=== PATIENT | female | born 1960 | race Two or more races ===

== ENCOUNTER 2022-11-09 17:13 | Inpatient (IN) | payer MEDICAID, OTHER, SELFPAY ==
--- NOTE | 2022-11-09 | ECG_ITS ---
Test Reason : CHEST PAIN Blood Pressure : / mmHG Vent. Rate : 058 BPM Atrial Rate : 058 BPM P-R Int : 192 ms QRS Dur : 104 ms QT Int : 444 ms P-R-T Axes : 046 -29 115 degrees QTc Int : 435 ms Sinus bradycardia Left ventricular hypertrophy with repolarization abnormality ( R in aVL , [place] product ) Abnormal ECG No previous ECGs available Referred By: Generic ED Physician Electronically Signed By:Charles Khoury
--- NOTE | ~2022-11-09 | XR_ITS ---
EXAMINATION: XR CHEST CLINICAL INFORMATION: Chest pain COMPARISON: None available. TECHNIQUE: Frontal view of the chest was obtained. FINDINGS: The cardiomediastinal silhouette is prominent, likely related to positioning and technique. Slight elevation right hemidiaphragm. There is no focal consolidation, edema, or effusion. No pneumothorax. No acute osseous abnormality. XR/XR chest 1V IMPRESSION: No evidence of acute cardiopulmonary process.
--- NOTE | ~2022-11-09 | CT_ITS ---
EXAMINATION: CT ABDOMEN AND PELVIS WITHOUT CONTRAST CLINICAL INFORMATION: Question spinal stenosis and pyelonephritis. COMPARISON: None available. TECHNIQUE: Multidetector volumetric imaging was performed from the superior aspect of the liver through the pubic symphysis. Sagittal and coronal reformatted images were obtained on the technologist's workstation. This CT examination was performed using dose optimization techniques as appropriate, variously including the following: *Automated exposure control *Adjustment of mA and/or kV according to patient size (this includes techniques or standardized protocols for targeted exams where dose is matched to indication/reason for exam; i.e. extremities or head) *Use of iterative reconstruction technique DLP: 820 mGy-cm FINDINGS: LUNG BASES: The visualized lung bases are unremarkable. LIVER, GALLBLADDER, AND BILIARY TREE: The liver is normal in size, shape, and attenuation. No focal hepatic lesion or biliary ductal dilatation is present. Cholecystectomy. PANCREAS: Unremarkable. SPLEEN: Unremarkable. ADRENAL GLANDS: Unremarkable. KIDNEYS AND URETERS: The kidneys are normal in size, shape, and attenuation. No hydronephrosis or hydroureter. 0.2 cm left upper pole calculus is 9 cm from the posterior axillary line. No perinephric stranding. BLADDER: Unremarkable. GASTROINTESTINAL TRACT: The stomach is unremarkable. Normal caliber small bowel. No obstruction. Normal appendix. No colonic wall thickening or inflammation. No free air or free fluid. ABDOMINAL WALL: No significant hernia is appreciated. LYMPH NODES: Normal. VASCULAR: Normal caliber aorta with moderate atherosclerotic calcification. PELVIC VISCERA: The uterus and adnexa are unremarkable. OSSEOUS STRUCTURES: No acute or suspicious osseous abnormality. Mild degenerative changes in the spine. Moderate disc bulge at L4-L5. Hypertrophy of the ligamentum flavum with facet arthropathy at this level resulting in at least moderate spinal canal narrowing. CT/CT abdomen pelvis wo IV con IMPRESSION: 1. No acute findings in the abdomen or pelvis. No inflammatory changes. No hydronephrosis. 2. 0.2 cm left upper pole renal calculus. 3. Moderate spinal canal narrowing at L4-L5. Fleischner guidelines were followed.
[2022-11-09 17:18] VITALS: BP 197/78; PULSE 59; RESP 18; TEMP 36.1; O2SAT 97; BMI 35.9
[2022-11-09 17:59] LABS: Hematocrit 36.9 % (37.0-47.0); Mean Corpuscular HGB Conc 32.5 g/dl (31.0-35.0); Mean Corpuscular Hemoglobin 27.9 pg (27.0-33.0); Mean Corpuscular Volume 85.8 fL (80.0-98.0); Mean Platelet Volume 10.6 fL (9.4-12.3); Platelet Count 251 X10*3/uL (160-400); White Blood Count 7.3 X10*3/uL (4.8-10.8)
[2022-11-09 18:09] LABS: Alanine Aminotransferase 11 U/L (0-31); Alkaline Phosphatase 75 U/L (39-117); Anion Gap 15 (12-20); Aspartate Amino Transferase 16 U/L (5-31); Bilirubin Total 0.3 mg/dL (0.0-1.0); Blood Urea Nitrogen 34 mg/dL (9-16); Calcium 10.4 mg/dL (8.4-10.2); Carbon Dioxide 30 mmol/L (22-29); Chloride 103 mmol/L (96-108); Creatinine Clr Calc Pharmacy 46.8; Estimated Glomerular Filt Rate 36; Glucose Random 62 mg/dL (60-115); Potassium 4.6 mmol/L (3.3-5.1); Sodium 143 mmol/L (135-145); Total Protein 6.9 g/dL (6.5-8.0)
[2022-11-09 18:13] LABS: B Type Natriuretic Peptide 284 pg/mL (<100)
[2022-11-09 18:16] LABS: Troponin-I High Sensitivity 14.5 ng/L (<3.5-17.0)
[2022-11-09 19:44] VITALS: BP 156/66; PULSE 56; RESP 20; O2SAT 96
--- NOTE | 2022-11-09 20:19 | PC.NURSE ---
pt changed into hospita attire, pt placed on light bulb assembler, pt denies any sob, pt does report 9/10 chest pain, EKg completed, provider notified, pt has bilateral 3+edema to lower legs, Lower legs elevated with pillow. Will continue to monitor.
[2022-11-09 20:21] LABS: Glucose, Whole Blood 91 mg/dL (60-115)
--- NOTE | 2022-11-09 20:44 | PC.NURSE ---
pt oob with a steady gait. no sign of dizziness at this time. Will continue to monitor.
--- NOTE | 2022-11-09 20:45 | ED.CHESTPAIN ---
HPI - Chest Pain General Chief Complaint: Chest Pain Stated Complaint: chest ,lower back pain feet swelling Time Seen by Provider: 11/09/22 19:58 Source: patient and family Mode of arrival: ambulatory History of Present Illness HPI narrative: 61-year-old female, airbag speaking, who presents with chest discomfort and bilateral lower back discomfort this been ongoing for approximately 1 week and she has noted be swelling. She is unable to get a primary care provider appointment until approximately February but is noted to be both diabetic as well as hypertensive. Patient reports that the chest discomfort has been present for 3-4 days but denies any fever, chills. She otherwise denies any abdominal pain. Related Data Allergies Allergy/AdvReac Type Severity Reaction Status Date / Time No Known Allergies Allergy Verified 11/09/22 17:21 Review of Systems Review of Systems: Pertinent positives and negatives as stated in HPI PMFSH Past Medical History Source: nursing notes reviewed Social History Social History Use of substances other than those prescribed or required for medical reasons: No Advance Directives: No Advance Directives Information Provided: No Physical Exam Vital Signs: Vital Signs: Last Vital Signs Temp 97.0 F 11/09/22 17:18 Pulse 56 11/09/22 19:44 Resp 20 11/09/22 19:44 BP 156/66 H 11/09/22 19:44 Pulse Ox 96 11/09/22 19:44 O2 Del Method Room Air 11/09/22 19:44 BMI result Body Mass Index 35.9 VITAL SIGNS: Reviewed. GENERAL: Elevated BMI, Well developed, well nourished, in no acute distress. HEAD: Normocephalic/atraumatic EYES: PERRLA, EOMI EARS: Ext canals without abnormality NOSE: Nares patent bilateral OROPHARYNX: no oral lesions noted, posterior pharynx clear NECK: Supple, no adenopathy LUNGS: Normal breath sounds. No adventitious sounds or accessory muscle use. SpO2<96> CARDIOVASCULAR: Regular rate and rhythm without noted murmurs, no JVD but bilateral lower nonpitting edema ABDOMEN: Soft, non-tender, non-distended with bowel sounds. MUSCULOSKELETAL: No tenderness, deformities, or effusions noted on gross inspection. EXTREMITIES: No cyanosis, clubbing or edema. SKIN: Inspection of the skin reveals no rashes NEUROLOGIC: Alert and oriented x 4. Strength and sensation to light touch were grossly intact x 4. Medications Administered Discontinued Medications Generic Name Dose Route Start Last Admin Trade Name Britt PRN Reason Stop Dose Admin Acetaminophen 975 mg 11/09/22 20:44 11/09/22 20:52 Acetaminophen 325 Mg Tablet PO 11/09/22 20:45 975 mg ONCE ONE Administration Sodium Chloride 500 mls @ 999 mls/hr 11/09/22 21:30 11/09/22 21:50 Ns IV 11/09/22 22:00 999 mls/hr .Q31M KAYLEE Administration Ceftriaxone Sodium 1 gm/ 50 mls @ 100 mls/hr 11/09/22 21:16 11/09/22 21:44 Sodium Chloride IV 11/09/22 21:45 100 mls/hr ONCE ONE Administration Lidocaine 1 patch 11/09/22 20:44 11/09/22 20:53 Lidocaine 4 % Patch Adh..Patch TRANSDERMA 11/09/22 20:45 1 patch ONCE ONE Administration Protocol Medical Decision Making Medical Decision Making [facility] Narrative: 61-year-old female with history and clinical presentation after review of all investigations my interpretation is that this patient has possible pyelonephritis in combination with UTI, will receive IV fluids as well as antibiotics. I reviewed all investigations my interpretation is as patient has an ALEXA and unclear whether not this is chronic or new especially in the setting of a UTI. Troponins are flat and there are no acute changes on EKG to suggest primary cardiac etiology. I discussed case with the inpatient hospitalist who accepts admission. Differential Diagnosis Please see the discussion above Consult Healthcare Provider Management of the patient was discussed with: Hospitalist Please see the discussion above Lab Data Please see the discussion above 11/09/22 17:47 11/09/22 17:47 Labs: Lab Results 11/09/22 11/09/22 11/09/22 Range/Units 17:47 17:47 17:47 WBC 7.3 (4.8-10.8) X10*3/uL RBC 4.30 (4.20-5.50) X10*6/uL Hgb 12.0 (12.0-16.0) g/dl Hct 36.9 L (37.0-47.0) % MCV 85.8 (80.0-98.0) fL MCH 27.9 (27.0-33.0) pg MCHC 32.5 (31.0-35.0) g/dl RDW 13.0 (11.0-16.0) % Plt Count 251 (160-400) X10*3/uL MPV 10.6 (9.4-12.3) fL Absolute Nucleated RBC 0.000 (0.0-0.012) X10*3/uL Nucleated RBC % (auto) 0.0 (0.0-0.2) /100WBC Sodium 143 (135-145) mmol/L Potassium 4.6 (3.3-5.1) mmol/L Chloride 103 (96-108) mmol/L Carbon Dioxide 30 H (22-29) mmol/L Anion Gap 15 (12-20) BUN 34 H (9-16) mg/dL Creatinine 1.50 H (0.5-1.4) mg/dL Estim Creat Clear Calc 46.8 Estimated GFR 36 POC Glucose (60-115) mg/dL Random Glucose 62 (60-115) mg/dL Calcium 10.4 H (8.4-10.2) mg/dL Total Bilirubin 0.3 (0.0-1.0) mg/dL AST 16 (5-31) U/L ALT 11 (0-31) U/L Alkaline Phosphatase 75 (39-117) U/L Troponin I High Sens 14.5 (<3.5-17.0) ng/L B-Natriuretic Peptide (<100) pg/mL Total Protein 6.9 (6.5-8.0) g/dL Albumin 4.0 (3.5-5.0) g/dL Urine Color Urine Appearance Urine pH (5.0-9.0) Ur Specific [place] (1.005-1.025) Urine Protein (Neg-Trace) mg/dL Urine Glucose (UA) (Negative) mg/dL Urine Ketones (Negative) mg/dL Urine Blood (Negative) Urine Nitrite (Negative) Ur Leukocyte Esterase (Negative) Urine RBC (0-2) /HPF Urine WBC (0-5) /HPF Ur Squamous Epith Cells (0-2) /HPF Urine Bacteria (None Seen) Hyaline Casts (0-2) /LPF 11/09/22 11/09/22 11/09/22 Range/Units 17:47 20:17 20:48 WBC (4.8-10.8) X10*3/uL RBC (4.20-5.50) X10*6/uL Hgb (12.0-16.0) g/dl Hct (37.0-47.0) % MCV (80.0-98.0) fL MCH (27.0-33.0) pg MCHC (31.0-35.0) g/dl RDW (11.0-16.0) % Plt Count (160-400) X10*3/uL MPV (9.4-12.3) fL Absolute Nucleated RBC (0.0-0.012) X10*3/uL Nucleated RBC % (auto) (0.0-0.2) /100WBC Sodium (135-145) mmol/L Potassium (3.3-5.1) mmol/L Chloride (96-108) mmol/L Carbon Dioxide (22-29) mmol/L Anion Gap (12-20) BUN (9-16) mg/dL Creatinine (0.5-1.4) mg/dL Estim Creat Clear Calc Estimated GFR POC Glucose 91 (60-115) mg/dL Random Glucose (60-115) mg/dL Calcium (8.4-10.2) mg/dL Total Bilirubin (0.0-1.0) mg/dL AST (5-31) U/L ALT (0-31) U/L Alkaline Phosphatase (39-117) U/L Troponin I High Sens (<3.5-17.0) ng/L B-Natriuretic Peptide 284 H (<100) pg/mL Total Protein (6.5-8.0) g/dL Albumin (3.5-5.0) g/dL Urine Color Yellow Urine Appearance Clear Urine pH 5.0 (5.0-9.0) Ur Specific [place] 1.020 (1.005-1.025) Urine Protein 30 (1+) H (Neg-Trace) mg/dL Urine Glucose (UA) Negative (Negative) mg/dL Urine Ketones Negative (Negative) mg/dL Urine Blood Negative (Negative) Urine Nitrite Positive H (Negative) Ur Leukocyte Esterase Moderate (2+) H (Negative) Urine RBC 0-2 (0-2) /HPF Urine WBC 21-50 H (0-5) /HPF Ur Squamous Epith Cells 6-10 (0-2) /HPF Urine Bacteria 4+ (None Seen) Hyaline Casts 3-5 (0-2) /LPF 11/09/22 Range/Units 21:47 WBC (4.8-10.8) X10*3/uL RBC (4.20-5.50) X10*6/uL Hgb (12.0-16.0) g/dl Hct (37.0-47.0) % MCV (80.0-98.0) fL MCH (27.0-33.0) pg MCHC (31.0-35.0) g/dl RDW (11.0-16.0) % Plt Count (160-400) X10*3/uL MPV (9.4-12.3) fL Absolute Nucleated RBC (0.0-0.012) X10*3/uL Nucleated RBC % (auto) (0.0-0.2) /100WBC Sodium (135-145) mmol/L Potassium (3.3-5.1) mmol/L Chloride (96-108) mmol/L Carbon Dioxide (22-29) mmol/L Anion Gap (12-20) BUN (9-16) mg/dL Creatinine (0.5-1.4) mg/dL Estim Creat Clear Calc Estimated GFR POC Glucose (60-115) mg/dL Random Glucose (60-115) mg/dL Calcium (8.4-10.2) mg/dL Total Bilirubin (0.0-1.0) mg/dL AST (5-31) U/L ALT (0-31) U/L Alkaline Phosphatase (39-117) U/L Troponin I High Sens 14.1 (<3.5-17.0) ng/L B-Natriuretic Peptide (<100) pg/mL Total Protein (6.5-8.0) g/dL Albumin (3.5-5.0) g/dL Urine Color Urine Appearance Urine pH (5.0-9.0) Ur Specific [place] (1.005-1.025) Urine Protein (Neg-Trace) mg/dL Urine Glucose (UA) (Negative) mg/dL Urine Ketones (Negative) mg/dL Urine Blood (Negative) Urine Nitrite (Negative) Ur Leukocyte Esterase (Negative) Urine RBC (0-2) /HPF Urine WBC (0-5) /HPF Ur Squamous Epith Cells (0-2) /HPF Urine Bacteria (None Seen) Hyaline Casts (0-2) /LPF Independent Interpretation I performed an independent interpretation of an: EKG Interpretation: Sinus bradycardia, HR-58, no STEMI, [place]/QRS/QTC is within normal limits. Radiology Impression Radiologist Impression: My interpretation is in agreement with radiology's impression of the imaging studies. Discharge Plan Discharge Patient Disposition: Admitted As Inpatient
[2022-11-09] MEDS: Acetaminophen 325 MG TABLET 975 MG PO (20:52)
[2022-11-09] MEDS: Lidocaine 4 % Patch ADH..PATCH 1 PATCH TRANSDERMA (20:53)
[2022-11-09 20:54] LABS: Appearance Urine Clear; Color Urine Yellow; Glucose Urine UA Negative (Negative); Leukocyte Esterase Urine Moderate (2+) (Negative); Nitrite Urine Positive (Negative); UMIC TRIGGER UACC YES; Urine Blood Negative (Negative); Urine Ketones Negative (Negative); Urine Protein 30 (1+) mg/dL (Neg-Trace)
--- NOTE | 2022-11-09 20:58 | PC.NURSE ---
pt medicated per Mar, Will continue to monitor.
[2022-11-09 21:08] LABS: Bacteria Urine 4+ (None Seen); RBC Urine 0-2 /HPF (0-2); UACC Culture Trigger YES; WBC Urine 21-50 /HPF (0-5)
[2022-11-09] MEDS: cefTRIAXone sodium 1 GM in 0.9 % Sodium Chloride 50 ML IV (21:44)
[2022-11-09] MEDS: 0.9 % Sodium Chloride 500 ML 999 ML IV (21:50)
--- NOTE | 2022-11-09 21:50 | PC.NURSE ---
pt medicated per mar.
[2022-11-09 22:12] LABS: Troponin-I High Sensitivity 14.1 ng/L (<3.5-17.0)
--- NOTE | 2022-11-09 22:15 | P.HPHOSP_ITS ---
History of Present Illness Date of Service: 11/09/22 Chief Complaint: Back pain This is a 61-year-old female with pertinent history of essential hypertension, insulin-dependent diabetes mellitus who presents to the emergency department evaluation of low back pain. History obtained with the help of son at bedside as patient is German speaking. Patient states she has had lower back pain for approximately 1 week which has been progressive. No trauma. No tingling or numbness in lower extremities. No urinary or bowel incontinence. Patient also complaining of chest pressure and dyspnea that is worse with exertion that has been ongoing for the last 1 week. Does endorse urinary hesitancy and occasional urgency. No fevers, chills, palpitations, abdominal pain, changes in bowel habits. In the emergency department, patient was found to have elevated creatinine and UTI Review of Systems Constitutional: Constitutional: Reports no additional constitutional complaints Cardiovascular: Cardiovascular: Reports dyspnea on exertion Respiratory: Respiratory: Reports dyspnea on exertion Gastrointestinal: Gastrointestinal: Reports no additional gastrointestinal complaints Genitourinary: Genitourinary: Reports urinary hesitancy and Reports urinary urgency Musculoskeletal: Musculoskeletal: Reports back pain [facility] Medical History Diabetes mellitus with insulin therapy (Unknown) Hypertension Functional capacity: independent ambulation Pertinent family history: No family history of early CAD Social History Use of substances other than those prescribed or required for medical reasons: No Advance Directives: No Advance Directives Information Provided: No Meds Allergies Allergy/AdvReac Type Severity Reaction Status Date / Time No Known Allergies Allergy Verified 11/09/22 17:21 Physical Exam Vital Signs and Narrative: Vital Signs: Last Vital Signs Temp 97.0 F 11/09/22 17:18 Pulse 56 11/09/22 19:44 Resp 20 11/09/22 19:44 BP 156/66 H 11/09/22 19:44 Pulse Ox 96 11/09/22 19:44 O2 Del Method Room Air 11/09/22 19:44 BMI result Body Mass Index 35.9 Middle-aged female lying in bed in no distress Neck supple, no JVD Regular rate and rhythm, S1-S2 heard Regular breath sounds bilaterally, no wheezing or crackles appreciated Abdomen soft nontender, no guarding, no rigidity Patient is awake, alert and oriented to self, place, time and person ; no focal motor deficit Musculoskeletal: No CVA tenderness, no spinal tenderness Psych: Normal mood No pedal edema Results Labs 11/09/22 17:47 11/09/22 17:47 Labs: Laboratory Results - last 24 hr 11/09/22 11/09/22 11/09/22 17:47 17:47 17:47 MCV 85.8 MCH 27.9 MCHC 32.5 RDW 13.0 Plt Count 251 MPV 10.6 Absolute Nucleated RBC 0.000 Nucleated RBC % (auto) 0.0 Anion Gap 15 Estim Creat Clear Calc 46.8 Estimated GFR 36 POC Glucose Random Glucose 62 Calcium 10.4 H Total Bilirubin 0.3 AST 16 ALT 11 Alkaline Phosphatase 75 Troponin I High Sens 14.5 B-Natriuretic Peptide Total Protein 6.9 Albumin 4.0 Urine Color Urine Appearance Urine pH Ur Specific [place] Urine Protein Urine Glucose (UA) Urine Ketones Urine Blood Urine Nitrite Ur Leukocyte Esterase Urine RBC Urine WBC Ur Squamous Epith Cells Urine Bacteria Hyaline Casts 11/09/22 11/09/22 11/09/22 17:47 20:17 20:48 MCV MCH MCHC RDW Plt Count MPV Absolute Nucleated RBC Nucleated RBC % (auto) Anion Gap Estim Creat Clear Calc Estimated GFR POC Glucose 91 Random Glucose Calcium Total Bilirubin AST ALT Alkaline Phosphatase Troponin I High Sens B-Natriuretic Peptide 284 H Total Protein Albumin Urine Color Yellow Urine Appearance Clear Urine pH 5.0 Ur Specific [place] 1.020 Urine Protein 30 (1+) H Urine Glucose (UA) Negative Urine Ketones Negative Urine Blood Negative Urine Nitrite Positive H Ur Leukocyte Esterase Moderate (2+) H Urine RBC 0-2 Urine WBC 21-50 H Ur Squamous Epith Cells 6-10 Urine Bacteria 4+ Hyaline Casts 3-5 11/09/22 21:47 MCV MCH MCHC RDW Plt Count MPV Absolute Nucleated RBC Nucleated RBC % (auto) Anion Gap Estim Creat Clear Calc Estimated GFR POC Glucose Random Glucose Calcium Total Bilirubin AST ALT Alkaline Phosphatase Troponin I High Sens 14.1 B-Natriuretic Peptide Total Protein Albumin Urine Color Urine Appearance Urine pH Ur Specific [place] Urine Protein Urine Glucose (UA) Urine Ketones Urine Blood Urine Nitrite Ur Leukocyte Esterase Urine RBC Urine WBC Ur Squamous Epith Cells Urine Bacteria Hyaline Casts Imaging Radiologist's Impressions: Impressions Chest X-Ray 11/09/22 18:03 IMPRESSION: No evidence of acute cardiopulmonary process. Assessment and Plan (1) UTI (urinary tract infection): Status: Acute Plan This is a 61-year-old female with pertinent history of essential hypertension, insulin-dependent diabetes mellitus who presents to the emergency department evaluation of low back pain. #. Elevated creatinine: Unknown baseline. ALEXA versus CKD. Resuscitated with IV crystalloids in the ER. Monitor creatinine and urine output. Avoid nephrotoxins #. Acute UTI: Will initiate IV Rocephin while in the hospital. Follow urine culture #. Lower back pain: CT pending #. Insulin-dependent diabetes mellitus: Initiating Accu-Cheks with sliding scale insulin #. Essential hypertension: On atenolol #. Chest discomfort with dyspnea on exertion: Initial troponin within normal limits. Initial EKG without evidence of ACS. Will repeat troponin. Obtaining echo #. Elevated BNP: May be baseline in an elderly female with kidney injury. Obtaining echo as above Med rec pending DVT prophylaxis: Lovenox Cardiac diet Full code Admit as inpatient and will require two night minimum hospital stay for IV antibiotics Time Spent With Patient Time: Total time managing care of this patient today ____ minutes. Quality Stroke Does the patient have a stroke diagnosis?: No VTE Prior VTE?: No VTE Risk Level:: Medical - moderate - high VTE Device Contraindication: Treatment Not Indicated VTE Drug Contraindication: N/A - Med Ordered
--- NOTE | 2022-11-09 22:24 | PC.NURSE ---
Per Dr. White, holding [place].
--- NOTE | 2022-11-09 22:24 | PC.NURSE ---
dr white at bedside and stated not to give the Lasix at this time. Liz wray made aware. Dr White is at the pt bedside at this time.
--- NOTE | 2022-11-09 22:42 | PHA.MEDREC ---
Pharmacy Consult ? Medication Reconciliation Pharmacy has completed the medication reconciliation. Spoke to patient and son who operated as the spanish interpreter/translator. patient does not see providers here, only in [place]. had a blister for atenolol 100, a vial of mixtard 30 ( novolin) and aspirin. Patient states they were supposed to be on something for cholesterol but never got it filled in [place]
[2022-11-09] MEDS: Enoxaparin Sodium 40 MG/0.4 ML SYRINGE SUBCUT (23:44)
--- NOTE | 2022-11-09 23:47 | PC.NURSE ---
Pt medicated per mar, light turn down, pt repositioned for comfort.
[2022-11-10] VITALS (7 sets, daily range): BP systolic 156–208; BP diastolic 72–90; PULSE 52–64; RESP 16–20; TEMP 36–36.5; O2SAT 96–97; BMI 36.1
[2022-11-10] MEDS: 0.9 % Sodium Chloride Flush 3 ML SYRINGE IVFLUSH ×3 (01:49→17:20)
--- NOTE | 2022-11-10 04:50 | PC.NURSE ---
PATIENT ADMITTED VIA STRETCHER FROM ED TO ROOM 383 WITH DX BACK PAIN, +UTI, ALEXA. PATIENT ALERT/ORIENTED/CO-OPERATIVE/DENIES PAIN UPON ADMISSION. PT ONLY SPEAKS ICELANDIC, HOWEVER, SON AT BEDSIDE TO ASSIST WITH LANGUAGE BARRIER. AMBULATING WITH A STEADY GAIT, NO DIZZINESS OR LIGHTHEADEDNESS, 2+ EDEMA AT BILAT LOWER LEGS, ANKLES, FEET, WITH NO NUMBNESS OR TINGLING. PT DENIES CP OR PRESSURE, #20 PRN ANGIO AT RT AC, VITALS [id number] AND O2 SAT 96 ROOM AIR. ORIENTED TO BED CONTROLS, SAFETY, CALL ARMAS USE, DIET, AND PLAN OF CARE
[2022-11-10 06:28] LABS: MANUAL DIFF FLAG NO
[2022-11-10 06:34] LABS: Basophils Percent Auto 0.5 % (0-2); Eosinophils Absolute Auto 0.1 X10*3/uL (0.0-0.4); Hematocrit 36.3 % (37.0-47.0); Hemoglobin 12.1 g/dl (12.0-16.0); Imm Gran Abs Auto 0.02 X10*3/uL (0.00-0.03); Imm Gran Pct Auto 0.3 % (0.0-0.4); Lymphocytes Absolute Auto 2.2 X10*3/uL (1.2-4.9); Lymphocytes Percent Auto 35.8 % (20-40); Mean Corpuscular HGB Conc 33.3 g/dl (31.0-35.0); Mean Corpuscular Hemoglobin 28.5 pg (27.0-33.0); Mean Corpuscular Volume 85.4 fL (80.0-98.0); Mean Platelet Volume 10.8 fL (9.4-12.3); Monocytes Absolute Auto 0.5 X10*3/uL (0.1-1.2); Monocytes Percent Auto 7.6 % (2-11); Neutrophils Absolute Auto 3.3 x10*3/uL (2.0-8.3); Neutrophils Percent Auto 53.8 % (45-73); Platelet Count 188 X10*3/uL (160-400); Red Blood Count 4.25 X10*6/uL (4.20-5.50); Red Cell Distribution Width 12.9 % (11.0-16.0); White Blood Count 6.2 X10*3/uL (4.8-10.8)
[2022-11-10 06:54] LABS: Anion Gap 13 (12-20); Blood Urea Nitrogen 32 mg/dL (9-16); Calcium 9.7 mg/dL (8.4-10.2); Carbon Dioxide 28 mmol/L (22-29); Chloride 106 mmol/L (96-108); Creatinine Clr Calc Pharmacy 49.8; Estimated Glomerular Filt Rate 38; Glucose Random 176 mg/dL (60-115); Potassium 3.9 mmol/L (3.3-5.1); Sodium 143 mmol/L (135-145)
[2022-11-10 07:10] LABS: Troponin-I High Sensitivity 12.8 ng/L (<3.5-17.0)
[2022-11-10 07:39] LABS: Glucose, Whole Blood 156 mg/dL (60-115)
[2022-11-10] MEDS: Acetaminophen 325 MG TABLET 650 MG PO (08:04)
[2022-11-10] MEDS: atenoloL 100 MG TABLET PO (08:04)
[2022-11-10] MEDS: Aspirin Enteric Coated 81 MG TABLET.DR PO (08:04)
[2022-11-10] MEDS: Insulin Lispro 100 UNIT/ML 3 ML VIAL SUBCUT ×4 (08:05→21:44)
[2022-11-10 11:37] LABS: Glucose, Whole Blood 234 mg/dL (60-115)
--- NOTE | 2022-11-10 12:28 | MHC.CM.PN ---
met with pt and husam who translated pt lives with her and son she explains pt is conner vax is has a ride home when dcd dcp chet home no servceis
--- NOTE | 2022-11-10 13:16 | P.PNIM_ITS ---
Subjective Subjective Date of Service: 11/10/22 Interval History: History obtained via Japanese certified court/medical interpreter, patient complaining of persistent left flank pain but better since admission, less urinary symptoms of dysuria, no nausea, no vomiting ,no fevers, no chills, no prior history of UTI, gives history of chest discomfort with exertion, denies chest pain, no prior history of coronary artery disease. Review of Systems Review of Systems: Yes all other systems are reviewed and are negative Physical Exam Vital Signs: Vital Signs: Last Vital Signs Temp 97.6 F 11/10/22 12:22 Pulse 60 11/10/22 12:22 Resp 18 11/10/22 12:22 BP 158/80 H 11/10/22 12:22 Pulse Ox 96 11/10/22 12:22 O2 Del Method Room Air 11/10/22 12:22 BMI result Body Mass Index 36.1 Const: Other: General resting comfortably in no acute distress Neck supple, no JVD Regular rate and rhythm, S1-S2 heard Regular breath sounds bilaterally, no wheezing or crackles appreciated Abdomen soft nontender, bowel sounds audible, no guarding, no rigidity Musculoskeletal:? No CVA tenderness, no spinal tenderness Psych: Normal mood No pedal edema Neuro normal exam Objective Data Active Medications Acetaminophen (Acetaminophen 325 Mg Tablet) 650 mg PO Q6H PRN PRN Reason: Pain, Mild (Pain Scale 1-3) Last Admin: 11/10/22 08:04 Dose: 650 mg Documented By: MARIA GUADALUPE Aspirin (Aspirin Enteric Coated 81 Mg Tablet.) 81 mg PO DAILY [facility] Last Admin: 11/10/22 08:04 Dose: 81 mg Documented By: MARIA GUADALUPE Atenolol (Atenolol 100 Mg Tablet) 100 mg PO DAILY [facility]; Protocol Last Admin: 11/10/22 08:04 Dose: 100 mg Documented By: MARIA GUADALUPE Enoxaparin Sodium (Enoxaparin Sodium 40 Mg/0.4 Ml Syringe) 40 mg SUBCUT Q24H [facility] Last Admin: 11/09/22 23:44 Dose: 40 mg Documented By: NORMAN Glucose (Glucose Gel 15 Gm Gel..Gram.) 15 gm PO Q15M PRN; Protocol PRN Reason: per Hypoglycemia Standing Ord. Ceftriaxone Sodium 1 gm/ (Sodium Chloride) 50 mls @ 100 mls/hr IV Q24H [facility] Dextrose (D10) 250 mls @ 750 mls/hr IV Q15M PRN; Protocol PRN Reason: per Hypoglycemia Standing Ord. Insulin Human Lispro (Insulin Lispro 100 Unit/Ml 3 Ml Vial) 0 unit SUBCUT QIDACHS [facility]; Protocol Last Admin: 11/10/22 12:25 Dose: 4 unit Documented By: MARIA GUADALUPE Melatonin (Melatonin 3 Mg Tablet) 6 mg PO BEDTIME PRN PRN Reason: Insomnia Ondansetron HCl (Ondansetron Hcl 4 Mg/2 Ml Vial) 4 mg IVPUSH Q8H PRN PRN Reason: Nausea and Vomiting Pharmacy Consult (Consult Rx Perform Med Rec) 1 each MISCELLANE ONCE PRN PRN Reason: Consult order Sodium Chloride (0.9 % Sodium Chloride Flush 3 Ml Syringe) 3 ml IVFLUSH QSHIFT [facility] Last Admin: 11/10/22 08:05 Dose: 3 ml Documented By: MARIA GUADALUPE Labs 11/10/22 06:23 11/10/22 06:23 Labs: Laboratory Results - last 24 hr 11/09/22 11/09/22 11/09/22 17:47 17:47 17:47 MCV 85.8 MCH 27.9 MCHC 32.5 RDW 13.0 Plt Count 251 MPV 10.6 Immature Gran % (Auto) Neut % (Auto) Lymph % (Auto) Faulk % (Auto) Eos % (Auto) Baso % (Auto) Lymph # (Auto) Faulk # (Auto) Eos # (Auto) Baso # (Auto) Abs Immat Gran (auto) Absolute Neuts (auto) Absolute Nucleated RBC 0.000 Nucleated RBC % (auto) 0.0 Anion Gap 15 Estim Creat Clear Calc 46.8 Estimated GFR 36 POC Glucose Random Glucose 62 Calcium 10.4 H Total Bilirubin 0.3 AST 16 ALT 11 Alkaline Phosphatase 75 Troponin I High Sens 14.5 B-Natriuretic Peptide Total Protein 6.9 Albumin 4.0 Urine Color Urine Appearance Urine pH Ur Specific Rulo Urine Protein Urine Glucose (UA) Urine Ketones Urine Blood Urine Nitrite Ur Leukocyte Esterase Urine RBC Urine WBC Ur Squamous Epith Cells Urine Bacteria Hyaline Casts 11/09/22 11/09/22 11/09/22 17:47 20:17 20:48 MCV MCH MCHC RDW Plt Count MPV Immature Gran % (Auto) Neut % (Auto) Lymph % (Auto) Faulk % (Auto) Eos % (Auto) Baso % (Auto) Lymph # (Auto) Faulk # (Auto) Eos # (Auto) Baso # (Auto) Abs Immat Gran (auto) Absolute Neuts (auto) Absolute Nucleated RBC Nucleated RBC % (auto) Anion Gap Estim Creat Clear Calc Estimated GFR POC Glucose 91 Random Glucose Calcium Total Bilirubin AST ALT Alkaline Phosphatase Troponin I High Sens B-Natriuretic Peptide 284 H Total Protein Albumin Urine Color Yellow Urine Appearance Clear Urine pH 5.0 Ur Specific Rulo 1.020 Urine Protein 30 (1+) H Urine Glucose (UA) Negative Urine Ketones Negative Urine Blood Negative Urine Nitrite Positive H Ur Leukocyte Esterase Moderate (2+) H Urine RBC 0-2 Urine WBC 21-50 H Ur Squamous Epith Cells 6-10 Urine Bacteria 4+ Hyaline Casts 3-5 11/09/22 11/10/22 11/10/22 21:47 06:23 06:23 MCV 85.4 MCH 28.5 MCHC 33.3 RDW 12.9 Plt Count 188 D MPV 10.8 Immature Gran % (Auto) 0.3 Neut % (Auto) 53.8 Lymph % (Auto) 35.8 Faulk % (Auto) 7.6 Eos % (Auto) 2.0 Baso % (Auto) 0.5 Lymph # (Auto) 2.2 Faulk # (Auto) 0.5 Eos # (Auto) 0.1 Baso # (Auto) 0.0 Abs Immat Gran (auto) 0.02 Absolute Neuts (auto) 3.3 Absolute Nucleated RBC 0.000 Nucleated RBC % (auto) 0.0 Anion Gap 13 Estim Creat Clear Calc 49.8 Estimated GFR 38 POC Glucose Random Glucose 176 H Calcium 9.7 D Total Bilirubin AST ALT Alkaline Phosphatase Troponin I High Sens 14.1 B-Natriuretic Peptide Total Protein Albumin Urine Color Urine Appearance Urine pH Ur Specific Rulo Urine Protein Urine Glucose (UA) Urine Ketones Urine Blood Urine Nitrite Ur Leukocyte Esterase Urine RBC Urine WBC Ur Squamous Epith Cells Urine Bacteria Hyaline Casts 11/10/22 11/10/22 11/10/22 06:23 07:34 11:33 MCV MCH MCHC RDW Plt Count MPV Immature Gran % (Auto) Neut % (Auto) Lymph % (Auto) Faulk % (Auto) Eos % (Auto) Baso % (Auto) Lymph # (Auto) Faulk # (Auto) Eos # (Auto) Baso # (Auto) Abs Immat Gran (auto) Absolute Neuts (auto) Absolute Nucleated RBC Nucleated RBC % (auto) Anion Gap Estim Creat Clear Calc Estimated GFR POC Glucose 156 H 234 H Random Glucose Calcium Total Bilirubin AST ALT Alkaline Phosphatase Troponin I High Sens 12.8 B-Natriuretic Peptide Total Protein Albumin Urine Color Urine Appearance Urine pH Ur Specific Rulo Urine Protein Urine Glucose (UA) Urine Ketones Urine Blood Urine Nitrite Ur Leukocyte Esterase Urine RBC Urine WBC Ur Squamous Epith Cells Urine Bacteria Hyaline Casts Microbiology Microbiology Results: Microbiology 11/09/22 21:12 Urine Culture - Preliminary Urine clean catch - Urine [place] top Culture in progress. Assessment and Plan (1) UTI (urinary tract infection): Status: Acute (2) Hypertension: Status: Acute (3) Diabetes mellitus with insulin therapy: Status: Acute Plan 61-year-old female with pertinent history of essential hypertension, insulin-dependent diabetes mellitus who presents to the emergency department evaluation of low back pain. #.? Elevated creatinine:? Unknown baseline.? ALEXA versus CKD.? Creatinine trending down continue IV fluids follow BMP avoid nephrotoxins #.? Acute UTI:? IV Rocephin D 1 Follow urine culture, no fevers, no le ukocytosis, no CVA tenderness, CT abdomen and pelvis showed no acute abnormality. #.? Lower back pain:?left Flank pain, CT abdomen and pelvis showed L4/L5 moderate spinal canal narrowing, likely contributing to back pain, no bowel bladder incontinence no lower extremity numbness tingling weakness. #.? Insulin-dependent diabetes mellitus:? Diabetic diet, Accu-Cheks with sliding scale insulin, takes NPH/regular insulin b.i.d. at home will place on Lantus at bedtime. #.? Essential hypertension: Elevated blood pressures, Resume atenolol 100 mg by mouth daily, follow blood pressures #.? Chest discomfort with dyspnea on exertion: Coronary artery disease risk of obesity hypertension and diabetes,? EKG showed no acute ischemia troponin x2 negative, follow echo , check lipid profile If noted to have abnormal echo will obtain Cardiology consult. #.? Elevated BNP:? No baseline available no evidence of CHF, follow echo as above. # obesity contributing to diabetes and hypertension recommend low-calorie diet/exercise DVT prophylaxis: Lovenox Cardiac diet Full code Need continued inpatient hospitalization for IV antibiotics and further workup for chest discomfort. Time Spent With Patient Time: Total time managing care of this patient today ____ minutes. Quality Stroke Does the patient have a stroke diagnosis?: No VTE Prior VTE?: No VTE Risk Level:: Medical - moderate - high VTE Device Contraindication: Treatment Not Indicated VTE Drug Contraindication: N/A - Med Ordered
[2022-11-10 16:43] LABS: Glucose, Whole Blood 205 mg/dL (60-115)
[2022-11-10 21:01] LABS: Glucose, Whole Blood 212 mg/dL (60-115)
[2022-11-10] MEDS: Enoxaparin Sodium 40 MG/0.4 ML SYRINGE SUBCUT (21:45)
[2022-11-10] MEDS: cefTRIAXone sodium 1 GM in 0.9 % Sodium Chloride 50 ML IV (21:45)
[2022-11-10] MEDS: Insulin Glargine,Hum.rec.anlog 100 UNIT/ML 10 ML VIAL 10 UNIT SUBCUT (21:45)
[2022-11-11 03:59] VITALS: BP 138/86; PULSE 57; RESP 16; TEMP 36.1; O2SAT 96
--- NOTE | 2022-11-11 07:00 | CA_ITS ---
Transthoracic Echocardiogram Patient (Last, First, Middle): Parth Garsia, Gender: Female Date of : 1960 Age: 61 Procedure Date: 11/11/2022 Procedure Type: Transthoracic Echocardiogram Location: [facility] [place] Height: 165.1 cm Weight: 97.98 kg BSA: 2.04 m2 Heart Rate: 55 bpm BP: 157 / 77 mmHg Traffic Signal Mechanic: CASE Referring MD: Jaziel White MD Symptoms: dyspnea Study Quality: Adequate w contrast ECG Rhythm: Bradycardia Conclusions: - Normal left ventricular cavity size. There is severely increased left ventricular wall thickness. The left ventricular systolic function is hyperdynamic. The visually estimated ejection fraction is >70%. - Elevated filling pressures. - Normal right ventricular cavity size and systolic function. - The left atrium is normal in size. The right atrium is normal in size. - There is mild dilatation of the ascending aorta measuring 3.50 cm. Findings Procedure Information Contrast agent, definity, is being given per protocol without apparent complications. Left Ventricle Normal left ventricular cavity size. There is severely increased left ventricular wall thickness. The left ventricular systolic function is hyperdynamic. The visually estimated ejection fraction is >70%. There is no evidence of regional wall motion abnormalities. Abnormal diastolic function is noted. Spectral Doppler is indicative of a pseudonormal filling pattern. Elevated filling pressures. Right Ventricle Normal right ventricular cavity size and systolic function. Atria The left atrium is normal in size. The right atrium is normal in size. Aortic Valve Normal aortic valve structure and function. There is no aortic valve stenosis. There is no aortic valve regurgitation. Mitral Valve Normal mitral valve structure and function. There is trace mitral valve regurgitation. There is no mitral valve stenosis. Pulmonic Valve The pulmonic valve was not well visualized. Tricuspid Valve Normal tricuspid valve structure and function. There is no tricuspid valve regurgitation. Tricuspid regurgitation envelope is inadequate for calculation of right ventricular systolic pressure. Normal right atrial pressure. Great Vessels There is mild dilatation of the ascending aorta measuring 3.50 cm. The visualized portions of the pulmonary artery and branches are normal. Venous The inferior vena cava is normal in size and collapses greater than 50% with inspiration. Pericardium/Pleural There is no evidence of pericardial effusion. Prior Study Comparison No prior study available for comparison. Measurements 2D Linear Measurements IVSd: 2.08 0.6-0.9/0.6-1.0 cm LVIDd: 3.64 3.9-5.3/4.2-5.9 cm LVIDd Index: 1.78 2.4-3.2/2.2-3.1 cm/m2 LVIDs: 1.86 2.0-3.6 cm LVPWd: 1.59 0.7-1.1 cm LA Diam: 4.20 2.7-3.8/3.0-4.0 cm LAIDs Index: 2.06 1.5-2.3 cm/m2 LV Mass: 356.08 67-162/88-224 g LV Mass Index: 174.55 43-95/49-115 g/m2 LVOT Diam: 1.80 3.0+(-)1.3 cm 2D Systolic Function EF 4C: 74.60 >55% EF 2C: 76.10 >55% EF BiP: 75.90 >55% Mitral Valve MV Pk E: 0.72 MV PK A: 0.60 MV Decel Time: 228.00 E/A: 1.20 E'Lateral: 4.95 E'Medial: 3.16 E/E' Med: 22.70 E/E' Lat: 14.50 PHT: 67.00 MVA PHT: 3.28 Decel [place]: 3.14 Aortic Valve AoV Pk [place]orey: 1.66 AoV Mn [place]: 1.08 AoV VTI: 0.34 AoV Pk Grad: 11.00 Aov Mn Grad: 6.00 SHANTEL Cont.VTI: 1.64 LVOT LVOT Pk [place]: 0.98 LVOT Mn [place]: 0.67 LVOT VTI: 0.22 LVOT Pk Grad: 4.00 LVOT Mn Grad: 2.00 LVOT Diam: 1.80 LVOT Area: 2.54 Diastolic Function MV Pk E: 0.72 MV Pk A: 0.60 E/A: 1.20 E'Medial: 3.16 E/E' Med: 22.70 E' Laterial: 4.95 E/E' Lat: 14.50 Right Ventricle TAPSE (mm): 21.90 TVS' Torey: 10.50 Tricuspid Valve RA Press: 3.00 Great Vessels Aorta Sinus of Valsalva: 3.00 2.0-3.5 cm Ao Asc: 3.50 2.1-3.4 cm Pulmonary Valve PV Pk Torey: 0.81 Peak PV Grad: 3.00 Updated in Other Vendor System with Status of Final Charles Khoury MD electronically signed on 11/11/2022 2:42:58 PM with status of Final
[2022-11-11 07:17] LABS: Anion Gap 14 (12-20); Blood Urea Nitrogen 29 mg/dL (9-16); Calcium 9.8 mg/dL (8.4-10.2); Carbon Dioxide 28 mmol/L (22-29); Chloride 103 mmol/L (96-108); Cholesterol 280 mg/dL; Creatinine Clr Calc Pharmacy 60.6; Estimated Glomerular Filt Rate 48; Glucose Random 205 mg/dL (60-115); HDL Cholesterol 44 mg/dL; LDL Cholesterol Calculated 196 mg/dl; Sodium 141 mmol/L (135-145); Triglycerides 200 mg/dL
[2022-11-11 07:30] VITALS: BP 190/90; PULSE 60; RESP 16; TEMP 36.2; O2SAT 97
[2022-11-11 07:43] LABS: Erythrocyte Sedimentation Rate 44 MM/HR (0-20)
[2022-11-11 07:44] LABS: Glucose, Whole Blood 214 mg/dL (60-115)
[2022-11-11] MEDS: Insulin Lispro 100 UNIT/ML 3 ML VIAL SUBCUT ×3 (08:02→17:11)
[2022-11-11] MEDS: atenoloL 100 MG TABLET PO (08:02)
[2022-11-11] MEDS: Aspirin Enteric Coated 81 MG TABLET.DR PO (08:02)
[2022-11-11] MEDS: 0.9 % Sodium Chloride Flush 3 ML SYRINGE IVFLUSH ×2 (08:04→15:17)
[2022-11-11] MEDS: amLODIPine Besylate 5 MG TABLET PO (10:09)
[2022-11-11 11:42] LABS: Glucose, Whole Blood 242 mg/dL (60-115)
[2022-11-11 15:09] VITALS: BP 180/84
[2022-11-11] MEDS: hydroCHLOROthiazide 12.5 MG TABLET PO (15:15)
[2022-11-11 16:53] VITALS: BP 168/82
[2022-11-11 17:04] LABS: Glucose, Whole Blood 307 mg/dL (60-115)
--- NOTE | 2022-11-11 17:09 | PM.DS ---
DS: Providers Provider Date of Service: 11/11/22 Date of admission: 11/09/22 22:14 Primary care physician: Unknown Physician DS: Diagnosis Discharge Diagnosis (1) UTI (urinary tract infection): Status: Acute (2) Hypertension: Status: Acute (3) Diabetes mellitus with insulin therapy: Status: Acute DS: Summary Hospital Course Hospital Course: History of presenting illness Date of Service: 11/09/22 Chief Complaint: Back pain This is a 61-year-old female with pertinent history of essential hypertension, insulin-dependent diabetes mellitus who presents to the emergency department evaluation of low back pain.? History obtained with the help of son at bedside as patient is French speaking.? Patient states she has had lower back pain for approximately 1 week which has been progressive.? No trauma.? No tingling or numbness in lower extremities.? No urinary or bowel incontinence.? Patient also complaining of chest pressure and dyspnea that is worse with exertion that has been ongoing for the last 1 week.? Does endorse urinary hesitancy and occasional urgency.? No fevers, chills, palpitations, abdominal pain, changes in bowel habits. In the emergency department, patient was found to have elevated creatinine and UTI Hospital course 61-year-old female with pertinent history of essential hypertension, insulin-dependent diabetes mellitus who presents to the emergency department evaluation of low back pain. #.? Elevated creatinine:? treated with IV fluid renal function improved likely ALEXA no prior labs available. #.? Acute UTI:?? initially felt to have urinary tract infection treated with IV Rocephin had no fevers, no leukocytosis, no CVA tenderness, CT abdomen and pelvis showed no acute abnormality, urine culture showed mixed bacterial kim therefore antibiotic discontinued. #.? Lower back pain:?left Flank pain, CT abdomen and pelvis showed L4/L5 moderate spinal canal narrowing, likely contributing to back pain, no bowel bladder incontinence, no lower extremity numbness, tingling, weakness, back pain improved prior to discharge, recommend Tylenol and weight loss. #.? Insulin-dependent diabetes mellitus: recommend to follow diabetic diet and insulin. #.? Essential hypertension: noted to have significantly elevated blood pressures,? echo showed LVH, she she was continued on atenolol 100 mg by mouth daily, added Norvasc 5 mg daily and hydralazine 25 mg b.i.d. since patient was noted to have elevated creatinine and does not have schedule follow-up , lisinopril and hydrochlorothiazide were not given, recommended close outpatient follow-up with primary care physician and further medication adjustment, informed patient's sons and daughter in laws regarding importance of good blood pressure control. #.? Chest discomfort with dyspnea on exertion:? Coronary artery disease risk of obesity hypertension and diabetes,? EKG showed no acute ischemia, troponin x2 negative, echo showed no wall motion abnormality, EF greater than 70% ,abnormal diastolic function and left ventricular hypertrophy , lipid profile showed LDL 196, total cholesterol 280, patient started on Lipitor 40 mg daily recommended weight reduction low fat diet and exercise. ? ? ? #.? Elevated BNP:? No baseline available no clinical evidence of CHF, patient need close outpatient monitoring of labs , PCP follow up and Cardiology eval as needed. #? obesity contributing to diabetes and hypertension recommend low-calorie diet/exercise. Time Spent with Patient Time attestation: Total time managing care of this patient today ____ minutes. Discharge coordination time: Greater than 30 minutes Quality: Safe Use of Opioids Does Pt have an Active Cancer Diagnosis on the Problem List?: No Quality: Stroke Does the patient have a stroke diagnosis?: No Physical Exam Vital Signs: Vital Signs: Last Vital Signs Temp 97.1 F 11/11/22 07:30 Pulse 60 11/11/22 07:30 Resp 16 11/11/22 07:30 BP 168/82 H 11/11/22 16:53 Pulse Ox 97 11/11/22 07:30 O2 Del Method Room Air 11/11/22 07:30 BMI result Body Mass Index 36.1 Const: Other: General resting comfortably in no acute distress Neck supple, no JVD Regular rate and rhythm, S1-S2 heard Regular breath sounds bilaterally, no wheezing or crackles appreciated Abdomen soft nontender, bowel sounds audible, no guarding, no rigidity Musculoskeletal:? No CVA tenderness, no spinal tenderness, normal bilateral knee examination. Psych: Normal mood No pedal edema Neuro normal exam DS: Data Data Completed and Pending Labs on day of discharge: Laboratory Results - last 24 hr 11/10/22 11/11/22 11/11/22 20:51 05:54 05:54 ESR 44 H Sodium 141 Potassium 4.0 Chloride 103 Carbon Dioxide 28 Anion Gap 14 BUN 29 H Creatinine 1.16 Estim Creat Clear Calc 60.6 Estimated GFR 48 POC Glucose 212 H Random Glucose 205 H Calcium 9.8 Triglycerides 200 Cholesterol 280 LDL Cholesterol, Calc 196 HDL Cholesterol 44 11/11/22 11/11/22 11/11/22 07:28 11:37 16:49 ESR Sodium Potassium Chloride Carbon Dioxide Anion Gap BUN Creatinine Estim Creat Clear Calc Estimated GFR POC Glucose 214 H 242 H 307 H Random Glucose Calcium Triglycerides Cholesterol LDL Cholesterol, Calc HDL Cholesterol Discharge Plan Discharge Anticipated Discharge Date/Time: 11/11/22 11:41 Patient Disposition: Home, Self-Care Discharge Diagnosis: Uncontrolled blood pressure Essential hypertension Low back pain Acute kidney injury Chest discomfort Referrals: Physician,Unknown J [Primary Care Provider] - 1 Week Discharge Medications: New amlodipine 5 mg Tablet 5 mg PO DAILY Qty: 90 0RF Protocol: Hold for SBP< HOLD for SBP < : 90 atorvastatin 40 mg Tablet 40 mg PO BEDTIME Qty: 90 0RF hydralazine 25 mg tablet 25 mg PO BID Qty: 60 0RF atenolol 100 mg tablet 100 mg PO DAILY Qty: 90 0RF Continued atenolol 100 mg Tablet 100 mg PO DAILY Novolin 70/30 U-100 Insulin 100 unit/mL (70-30) Suspension 35 unit SUBCUT BID aspirin 81 mg Tablet,Delayed Release (Dr/Ec) 81 mg PO DAILY Discharge Orders: Discharge Order (Routine); Ordered 11/11/22 Ordered By: Shima Joseph Diet: Diabetic diet Activity on Discharge: As tolerated Stand Alone Forms: Patient Portal Discharge page Care Plan Goals: Uncontrolled blood pressure, echocardiogram showed left ventricular hypertrophy/elevated LDL no urinary tract infection Take Norvasc 5 mg daily Take Lipitor 40 mg by mouth daily Take hydralazine 25 mg twice daily Check blood pressure at home while resting, call PCP for early appointment in 1 week Return to [facility] with headache ,dizziness or chest pain Health Concerns: Uncontrolled blood pressure/diabetes mellitus/obesity Recommend low-calorie diabetic diet Plan of Treatment: Need close outpatient primary care physician follow-up call for appointment Assessment: As above Discharge Date/Time: 11/11/22 17:57
== END 2022-11-11 17:57 | disposition home or self-care (01) | DRG 469 ==
LOC: HO.ED 20:52 → HO.EDOVER 22:22 → HO.S3 11-10 00:26
PROVIDERS: Admitting Provider Student in an Organized Health Care Education/Training Program; Emergency Provider Student in an Organized Health Care Education/Training Program; Visit Provider Hospitalist
DX: N17.9 Acute kidney failure, unspecified (principal); E11.9 Type 2 diabetes mellitus without complications; M48.061 Spinal stenosis, lumbar region without neurogenic claudication; I10 Essential (primary) hypertension; N39.0 Urinary tract infection, site not specified; E66.9 Obesity, unspecified; Z68.36 Body mass index [BMI] 36.0-36.9, adult; Z79.4 Long term (current) use of insulin; Z79.82 Long term (current) use of aspirin; Z79.899 Other long term (current) drug therapy
CPT/HCPCS: 36415; 71045; 74176; 80048; 80053; 80061; 81001; 81003; 82947; 83880; 84484; 85025; 85027; 85652; 87086; 93005; 93306; 99221; 99285; J0696; J1650; Q9957

== ENCOUNTER 2023-07-21 00:46 | Emergency (ER) | payer MEDICAID, OTHER, SELFPAY ==
--- NOTE | 2023-07-21 | ECG_ITS ---
Test Reason : CHEST PAIN Blood Pressure : / mmHG Vent. Rate : 059 BPM Atrial Rate : 059 BPM P-R Int : 200 ms QRS Dur : 104 ms QT Int : 436 ms P-R-T Axes : 067 -21 131 degrees QTc Int : 431 ms Sinus bradycardia Minimal voltage criteria for LVH, may be normal variant ( Tl product ) ST & T wave abnormality, consider lateral ischemia Abnormal ECG When compared with ECG of 09-NOV-2022 17:36, No significant change was found Referred By: Generic ED Physician Electronically Signed By:Charles Khoury
[2023-07-21 01:13] VITALS: BP 141/91; PULSE 110; RESP 20; TEMP 36.1; O2SAT 98; BMI 36.7
[2023-07-21 01:26] LABS: MANUAL DIFF FLAG NO
[2023-07-21 01:27] LABS: Basophils Percent Auto 0.3 % (0-2); Eosinophils Absolute Auto 0.2 X10*3/uL (0.0-0.4); Eosinophils Percent Auto 2.4 % (0-4); Hematocrit 35.6 % (37.0-47.0); Imm Gran Abs Auto 0.02 X10*3/uL (0.00-0.03); Imm Gran Pct Auto 0.3 % (0.0-0.4); Lymphocytes Absolute Auto 1.2 X10*3/uL (1.2-4.9); Lymphocytes Percent Auto 17.1 % (20-40); Mean Corpuscular HGB Conc 33.7 g/dl (31.0-35.0); Mean Corpuscular Hemoglobin 28.2 pg (27.0-33.0); Mean Corpuscular Volume 83.8 fL (80.0-98.0); Mean Platelet Volume 10.6 fL (9.4-12.3); Monocytes Absolute Auto 0.6 X10*3/uL (0.1-1.2); Monocytes Percent Auto 8.8 % (2-11); Neutrophils Absolute Auto 4.8 x10*3/uL (2.0-8.3); Neutrophils Percent Auto 71.1 % (45-73); Platelet Count 179 X10*3/uL (160-400); Red Blood Count 4.25 X10*6/uL (4.20-5.50); Red Cell Distribution Width 12.8 % (11.0-16.0); White Blood Count 6.7 X10*3/uL (4.8-10.8)
[2023-07-21 01:45] LABS: Alanine Aminotransferase 9 U/L (0-31); Albumin Level 3.7 g/dL (3.5-5.0); Alkaline Phosphatase 71 U/L (39-117); Anion Gap 14 (12-20); Aspartate Amino Transferase 15 U/L (5-31); Bilirubin Total 0.3 mg/dL (0.0-1.0); Blood Urea Nitrogen 30 mg/dL (9-16); Calcium 10.4 mg/dL (8.4-10.2); Carbon Dioxide 25 mmol/L (22-29); Chloride 102 mmol/L (96-108); Creatinine Clr Calc Pharmacy 46.8; Estimated Glomerular Filt Rate 39; Glucose Random 295 mg/dL (60-115); Potassium 4.5 mmol/L (3.3-5.1); Sodium 136 mmol/L (135-145); Total Protein 7.1 g/dL (6.5-8.0)
[2023-07-21 01:49] LABS: Troponin-I High Sensitivity 9.6 ng/L (<3.5-17.0)
[2023-07-21 02:20] LABS: Influenza A PCR NEGATIVE (Negative); Influenza B PCR NEGATIVE (Negative); Resp Syncy Virus RNA Qual PCR POSITIVE (Negative); SARS COV2 PCR INHOUSE NEGATIVE (Negative)
[2023-07-21 02:27] LABS: IDNOW Serial# 58CA691E; Strep A Nucleic Acid Negative (Negative)
[2023-07-21 05:19] VITALS: BP 162/72; PULSE 61; RESP 20; TEMP 36.7; O2SAT 95
--- NOTE | 2023-07-21 05:20 | MHC.EDTECH ---
This pct just assumed care of Patient ,vitals taken ,Pt was hooked up to electrical systems design engineer ,Patient son at bedside .
--- NOTE | 2023-07-21 06:37 | ED_ITS ---
HPI - General Adult General Chief complaint: General Medical Stated complaint: Cough, Chest Pain, High BP Time Seen by Provider: 07/21/23 06:28 Source: patient, family (Son) and varnisher plasticoater Mode of arrival: ambulatory History of Present Illness HPI narrative: 62-year-old female who states she has not been feeling well for the past 3 days and reports coughing, subjective fevers, chills and states her blood pressures been elevated despite taking her medication today. She denies any sick contacts. Related Data Home Medications Medication Instructions Recorded Confirmed aspirin 81 mg tablet,delayed 81 mg PO DAILY 11/09/22 11/09/22 release atenolol 100 mg tablet 100 mg PO DAILY 11/09/22 11/09/22 insulin human U-100 NPH-regulr 35 unit subcut BID 11/09/22 11/09/22 70-30 mix 100 unit/mL subcutaneous susp (Novolin 70/30 U-100 Insulin) Previous Rx's Medication Instructions Recorded amlodipine 5 mg tablet 5 mg PO DAILY #90 tabs 11/11/22 atorvastatin 40 mg tablet 40 mg PO BEDTIME #90 tabs 11/11/22 hydralazine 25 mg tablet 25 mg PO BID #60 tabs 11/11/22 atenolol 100 mg tablet 100 mg PO DAILY #90 tabs 11/13/22 Allergies Allergy/AdvReac Type Severity Reaction Status Date / Time No Known Allergies Allergy Verified 07/21/23 01:16 Review of Systems 2 Review of Systems: Pertinent positives and negatives as stated in HPI FORMERLY [facility], [facility] Past Medical History Source: nursing notes reviewed Onset Date is defined in the Problem List Problems that require an onset date and time if occurred within 24 hrs of arrival to the ED Aortic Dissection and Rupture; Neurologic impairment; Cardiopulmonary Arrest; Endotracheal Intubation; Insertion or Replacement of Mechanical Circulatory Assist Device Medical History Diabetes mellitus with insulin therapy (Unknown) Hypertension Social History Social History Household Members: Family Housing: House Do you presently have visiting nurse or other home services: No Alcohol intake: never Patient Tobacco Use Status: Never used Tobacco Smoked in Last 30 Days: No e-Cigarette/Vaping Use: Never Used Second Hand Smoke Exposure: No Use of substances other than those prescribed or required for medical reasons: No Advance Directives: Yes Advance Directives on File: Yes Advance Directives Date on File: 11/16/22 service: No Physical Exam ED Vital Signs: Vital Signs - 24 hr 07/21/23 01:13 07/21/23 05:19 Temperature 97.0 F 98.1 F Pulse Rate 110 H 61 Respiratory Rate 20 20 Blood Pressure 141/91 H 162/72 H Pulse Oximetry 98 95 Oxygen Delivery Method Room Air BMI result Body Mass Index 36.7 VITAL SIGNS: Reviewed. GENERAL: Well developed, well nourished, in no acute distress. HEAD: Normocephalic/atraumatic EYES: PERRLA, EOMI EARS: Ext canals without abnormality, TMs non-bulging and non-erythematous NOSE: Nares patent bilateral OROPHARYNX: no oral lesions noted, posterior pharynx clear and non-erythematous without noted tonsillar enlargement/erythema/exudates NECK: Supple, no adenopathy LUNGS: Normal breath sounds. No adventitious sounds or accessory muscle use. SpO2<95> CARDIOVASCULAR: Regular rate and rhythm without noted murmurs ABDOMEN: Soft, non-tender, non-distended with bowel sounds. MUSCULOSKELETAL: No tenderness, deformities, or effusions noted on gross inspection. EXTREMITIES: No cyanosis, clubbing or edema. SKIN: Inspection of the skin reveals no rashes NEUROLOGIC: Alert and oriented x 4. Strength and sensation to light touch were grossly intact x 4. Medical Decision Making Medical Decision Making MDM Narrative: 62-year-old female with history and clinical presentation, DDX: Viral illness, no suspicion for UTI or pneumonia. Reviewed all investigations and hematologic indices are negative for leukocytosis/left shift, anemia, thrombocytopenia. Chemistry indices are negative for ALEXA and there is no electrolyte or liver enzyme derangements. High sensitivity troponin is detectable but not significantly elevated in there are no EKG changes. Viral testing demonstrates RSV positivity. Patient otherwise appears well, received Tylenol ibuprofen was discharged home. Differential Diagnosis Differential Diagnoses: The differential diagnosis associated with the presentation includes Please see the discussion above Admission/Observation Consideration of admission/observation: Escalation of care including admission/observation considered Please see the discussion above Lab Data [facility] Lab Attestation statement: I reviewed the patient's lab results. Please see the discussion above 07/21/23 01:21 07/21/23 01:21 Labs: Lab Results 07/21/23 07/21/23 07/21/23 Range/Units 01:09 01:21 01:39 WBC 6.7 (4.8-10.8) X10*3/uL RBC 4.25 (4.20-5.50) X10*6/uL Hgb 12.0 (12.0-16.0) g/dl Hct 35.6 L (37.0-47.0) % MCV 83.8 (80.0-98.0) fL MCH 28.2 (27.0-33.0) pg MCHC 33.7 (31.0-35.0) g/dl RDW 12.8 (11.0-16.0) % Plt Count 179 (160-400) X10*3/uL MPV 10.6 (9.4-12.3) fL Immature Gran % (Auto) 0.3 (0.0-0.4) % Neut % (Auto) 71.1 (45-73) % Lymph % (Auto) 17.1 L (20-40) % [place] % (Auto) 8.8 (2-11) % Eos % (Auto) 2.4 (0-4) % Baso % (Auto) 0.3 (0-2) % Lymph # (Auto) 1.2 (1.2-4.9) X10*3/uL [place] # (Auto) 0.6 (0.1-1.2) X10*3/uL Eos # (Auto) 0.2 (0.0-0.4) X10*3/uL Baso # (Auto) 0.0 (0.0-0.2) X10*3/uL Abs Immat Gran (auto) 0.02 (0.00-0.03) X10*3/uL Absolute Neuts (auto) 4.8 (2.0-8.3) x10*3/uL Absolute Nucleated RBC 0.000 (0.0-0.012) X10*3/uL Nucleated RBC % (auto) 0.0 (0.0-0.2) /100WBC Sodium 136 (135-145) mmol/L Potassium 4.5 (3.3-5.1) mmol/L Chloride 102 (96-108) mmol/L Carbon Dioxide 25 (22-29) mmol/L Anion Gap 14 (12-20) BUN 30 H (9-16) mg/dL Creatinine 1.39 (0.5-1.4) mg/dL Estim Creat Clear Calc 46.8 Estimated GFR 39 Random Glucose 295 H (60-115) mg/dL Calcium 10.4 H D (8.4-10.2) mg/dL Total Bilirubin 0.3 (0.0-1.0) mg/dL AST 15 (5-31) U/L ALT 9 (0-31) U/L Alkaline Phosphatase 71 (39-117) U/L Troponin I High Sens 9.6 (<3.5-17.0) ng/L Total Protein 7.1 (6.5-8.0) g/dL Albumin 3.7 (3.5-5.0) g/dL Influenza Type A (PCR) NEGATIVE (Negative) Influenza Type B (PCR) NEGATIVE (Negative) RSV RNA Qual (PCR) POSITIVE A (Negative) SARS-CoV-2 RNA (RT-PCR) NEGATIVE (Negative) S. pyogenes GrpA JAYJAY Negative (Negative) Independent Interpretation I performed an independent interpretation of an: EKG Interpretation: Sinus bradycardia, HR -59, no STEMI, ID/QRS/QTC is within normal limits. External Record Review External record reviewed: Outpatient record, Prior outpatient labs and Prior outpatient radiology Chronic Conditions Patient?s care impacted by: Diabetes and Hypertension Critical Care Time Critical Care Time Critical Care Time: Yes Total Critical Care Time: 30 Attestation: I personally attest to this time spent taking care of the patient. Discharge Plan Discharge Clinical Impression: Viral syndrome, Respiratory syncytial virus (RSV) Patient Disposition: Home, Self-Care Instructions: Respiratory Syncytial Virus (ED), Viral Syndrome (ED) Additional Instructions: 1. Recommend [id number] Tylenol/ibuprofen as needed for body aches, headaches, temperatures greater than 100.4. Drink plenty of fluids and recommend [id number] cough medication. 2. Please follow-up with primary care doctor Return to the ER for any worsening symptoms. Prescriptions: No Action atenolol 100 mg Tablet 100 mg PO DAILY Novolin 70/30 U-100 Insulin 100 unit/mL (70-30) Suspension 35 unit SUBCUT BID aspirin 81 mg Tablet,Delayed Release (Dr/Ec) 81 mg PO DAILY amlodipine 5 mg Tablet 5 mg PO DAILY Qty: 90 0RF Protocol: Hold for SBP< HOLD for SBP < : 90 atorvastatin 40 mg Tablet 40 mg PO BEDTIME Qty: 90 0RF hydralazine 25 mg tablet 25 mg PO BID Qty: 60 0RF atenolol 100 mg tablet 100 mg PO DAILY Qty: 90 0RF Interventions: ED Discharge Assessment Last Done: 07/21/23 07:20 Discharge Date/Time: 07/21/23 07:21
== END 2023-07-21 07:21 | disposition home or self-care (01) ==
PROVIDERS: Emergency Provider Student in an Organized Health Care Education/Training Program
DX: R05.9 Cough, unspecified (principal); B97.4 Respiratory syncytial virus as the cause of diseases classified elsewhere; R07.9 Chest pain, unspecified; Z20.822 Contact with and (suspected) exposure to COVID-19
CPT/HCPCS: 0241U; 36415; 80053; 84484; 85025; 87651; 93005; 99283; 99284

== ENCOUNTER → 2023-07-21 01:00 | Outpatient (BNV) | payer MEDICAID, SELFPAY | PROVIDERS: Emergency Provider Student in an Organized Health Care Education/Training Program; Visit Provider Internal Medicine Cardiovascular Disease | DX: R00.1 Bradycardia, unspecified (principal); R94.31 Abnormal electrocardiogram [ECG] [EKG] | CPT/HCPCS: 93010 ==

== ENCOUNTER 2023-07-28 09:00 | Emergency (ER) | payer MEDICAID, OTHER, SELFPAY ==
--- NOTE | ~2023-07-28 | XR_ITS ---
EXAMINATION: XR CHEST CLINICAL INFORMATION: Worsening cough, RSV. COMPARISON: 11/09/2022 TECHNIQUE: 2 views of the chest were obtained. FINDINGS: Lungs are well-inflated and clear. Trachea is midline in position. No interstitial disease, consolidation or mass. No pleural effusion or pneumothorax. Cardiac silhouette and pulmonary vessels are normal in size. The mediastinum and michelle have normal contour. Mild atherosclerotic calcification of the aortic arch. The visualized bones and upper abdomen are unremarkable. XR/XR chest 2V IMPRESSION: No acute cardiopulmonary abnormality. No evidence of pneumonia.
--- NOTE | 2023-07-28 09:02 | ECG_ITS ---
Test Reason : CP Blood Pressure : / mmHG Vent. Rate : 062 BPM Atrial Rate : 062 BPM P-R Int : 190 ms QRS Dur : 102 ms QT Int : 428 ms P-R-T Axes : 080 -20 131 degrees QTc Int : 434 ms Normal sinus rhythm Anterior infarct , age undetermined ST & T wave abnormality, consider lateral ischemia Abnormal ECG When compared with ECG of 21-JUL-2023 01:00, No significant change was found Referred By: Generic ED Physician Electronically Signed By:ARMANDO LEE MD
[2023-07-28 09:44] VITALS: BP 197/80; PULSE 63; RESP 16; TEMP 36.1; O2SAT 91; BMI 38.6
[2023-07-28 09:47] LABS: MANUAL DIFF FLAG NO
[2023-07-28 09:51] LABS: Basophils Percent Auto 0.4 % (0-2); Eosinophils Absolute Auto 0.1 X10*3/uL (0.0-0.4); Eosinophils Percent Auto 1.6 % (0-4); Hematocrit 33.8 % (37.0-47.0); Hemoglobin 11.5 g/dl (12.0-16.0); Imm Gran Abs Auto 0.07 X10*3/uL (0.00-0.03); Imm Gran Pct Auto 0.8 % (0.0-0.4); Lymphocytes Absolute Auto 1.7 X10*3/uL (1.2-4.9); Lymphocytes Percent Auto 19.9 % (20-40); Mean Corpuscular Volume 85.1 fL (80.0-98.0); Mean Platelet Volume 10.6 fL (9.4-12.3); Monocytes Absolute Auto 0.6 X10*3/uL (0.1-1.2); Monocytes Percent Auto 7.3 % (2-11); Platelet Count 232 X10*3/uL (160-400); Red Blood Count 3.97 X10*6/uL (4.20-5.50); Red Cell Distribution Width 12.8 % (11.0-16.0); White Blood Count 8.5 X10*3/uL (4.8-10.8)
[2023-07-28 10:02] LABS: Anion Gap 15 (12-20); Blood Urea Nitrogen 23 mg/dL (9-16); Calcium 10.2 mg/dL (8.4-10.2); Carbon Dioxide 25 mmol/L (22-29); Chloride 102 mmol/L (96-108); Creatinine Clr Calc Pharmacy 54.7; Estimated Glomerular Filt Rate 47; Glucose Random 298 mg/dL (60-115); Potassium 4.3 mmol/L (3.3-5.1); Sodium 138 mmol/L (135-145)
[2023-07-28 10:10] LABS: Troponin-I High Sensitivity 9.3 ng/L (<3.5-17.0)
[2023-07-28 11:52] VITALS: BP 201/82; PULSE 61; RESP 16; TEMP 36.6; O2SAT 94
--- NOTE | 2023-07-28 11:52 | ED_ITS ---
HPI - Chest Pain General Chief Complaint: Chest Pain Stated Complaint: Chest pain, cough, high BP Time Seen by Provider: 07/28/23 11:44 Source: patient and family Mode of arrival: ambulatory Limitations: language barrier History of Present Illness HPI narrative: Son gave the history. 1 week of RSV now with worsening cough, high sugar and dysuria. Patient has chest pain with cough complaint: chest pain (with coughing) Related Data Home Medications Medication Instructions Recorded Confirmed aspirin 81 mg tablet,delayed 81 mg PO DAILY 11/09/22 11/09/22 release atenolol 100 mg tablet 100 mg PO DAILY 11/09/22 11/09/22 insulin human U-100 NPH-regulr 35 unit subcut BID 11/09/22 11/09/22 70-30 mix 100 unit/mL subcutaneous susp (Novolin 70/30 U-100 Insulin) Previous Rx's Medication Instructions Recorded amlodipine 5 mg tablet 5 mg PO DAILY #90 tabs 11/11/22 atorvastatin 40 mg tablet 40 mg PO BEDTIME #90 tabs 11/11/22 hydralazine 25 mg tablet 25 mg PO BID #60 tabs 11/11/22 atenolol 100 mg tablet 100 mg PO DAILY #90 tabs 11/13/22 amlodipine 5 mg tablet 5 mg PO DAILY #30 tabs 07/28/23 hydralazine 25 mg tablet 25 mg PO BID #60 tabs 07/28/23 [id number] 2.5 20 ml PO Q4H PRN cough #118 mL 07/28/23 mg-5 mg-50 mg/5 mL oral liquid (Robitussin Cough and Cold CF) Allergies Allergy/AdvReac Type Severity Reaction Status Date / Time No Known Allergies Allergy Verified 07/21/23 01:16 Review of Systems 2 Review of Systems: Yes all other systems are reviewed and are negative Neurologic: Denies Sensory deficit (Neuro) PMFSH Past Medical History Onset Date is defined in the Problem List Problems that require an onset date and time if occurred within 24 hrs of arrival to the ED Aortic Dissection and Rupture; Neurologic impairment; Cardiopulmonary Arrest; Endotracheal Intubation; Insertion or Replacement of Mechanical Circulatory Assist Device Medical History Diabetes mellitus with insulin therapy (Unknown) Hypertension Social History Social History Household Members: Family Housing: House Do you presently have visiting nurse or other home services: No Alcohol intake: never Patient Tobacco Use Status: Never used Tobacco Smoked in Last 30 Days: No e-Cigarette/Vaping Use: Never Used Second Hand Smoke Exposure: No Use of substances other than those prescribed or required for medical reasons: No Advance Directives: Yes Advance Directives on File: Yes Advance Directives Date on File: 11/16/22 Patient : No service: No Physical Exam 2 Vital Signs: Vital Signs: Last Vital Signs Temp 97.8 F 07/28/23 14:33 Pulse 62 07/28/23 14:33 Resp 16 07/28/23 14:33 BP 164/83 H 07/28/23 14:33 Pulse Ox 95 07/28/23 14:33 O2 Del Method Room Air 07/28/23 14:33 BMI result Body Mass Index 38.6 Const: Other: obese female with occaisional cough appearing weak Orientation/consciousness: oriented to person and patient oriented x3 L imitations: no limitations HEENT: Head: Yes normal to inspection Ears: external ears normal General nose exam: Normal external nose present Mouth: Normal oral and palatal mucosa present and oropharynx normal Throat: Yes posterior oropharynx normal Eyes: General: appearance normal, both eyes and all related structures Neck: Other: supple Neck: Yes normal visual inspection Chest: Chest palpation & inspection: normal inspection of the chest Resp: Auscultation: clear to auscultation bilaterally Cardio: Jugular venous distension: no JVD Rate: regular rate Rhythm: r egular rhythm Heart sounds: S1 normal heart sound present and S2 normal heart sound present GI: Inspection: Yes normal to inspection Palpation (GI): Soft to palpation, nontender and No hepatosplenomegaly present Auscultation: normal bowel sounds : General: Yes no CVA tenderness Back/Spine/Pelvis: Back: no CVA tenderness Skin: General skin exam: no rashes or lesions noted Neuro: General: oriented to person and patient oriented x3 Cranial nerves: Yes CN's II-XII intact bilaterally Motor exam (neuro): 5/5 motor strength present throughout Sensory Exam: No Sensory deficit (Neuro) Extrem: General: Yes normal to inspection Psych: Appearance: grossly normal Course Reevaluation(s) Reevaluation #1: Patient is not taking her BP medication and continues to cough, no evidence of pnemonia on xray Time: 14:37 Medications Administered Discontinued Medications Generic Name Dose Route Start Last Admin Trade Name Freq PRN Reason Stop Dose Admin Amlodipine Besylate 10 mg 07/28/23 12:43 07/28/23 13:04 Amlodipine Besylate 10 Mg Tablet PO 07/28/23 12:44 10 mg ONCE ONE Administration Protocol Atenolol 100 mg 07/28/23 12:43 07/28/23 13:04 Atenolol 100 Mg Tablet PO 07/28/23 12:44 100 mg ONCE ONE Administration Protocol Guaifenesin 20 ml 07/28/23 11:51 07/28/23 12:27 Guaifenesin 200 Mg/10 Ml 10 Ml Liquid PO 07/28/23 11:52 20 ml ONCE ONE Administration Hydralazine HCl 25 mg 07/28/23 12:43 07/28/23 13:04 Hydralazine Hcl 25 Mg Tablet PO 07/28/23 12:44 25 mg ONCE ONE Administration Protocol Insulin Human Lispro 5 unit 07/28/23 11:50 07/28/23 12:26 Insulin Lispro 100 Unit/Ml 3 Ml Vial SUBCUT 07/28/23 11:51 5 unit ONCE ONE Administration Medical Decision Making Differential Diagnosis Differential Diagnoses: The differential diagnosis associated with the presentation includes (pneumonia, hypertensive urgency, RSV, UTI, hyperglycemia were all considered) Admission/Observation Consideration of admission/observation: Escalation of care including admission/observation considered (Upon arrival patient was considered for admission) Consult Healthcare Provider Management of the patient was discussed with: Hospitalist (dr. Shea) Lab Data 07/28/23 09:42 07/28/23 09:42 Labs: Lab Results 07/28/23 07/28/23 07/28/23 Range/Units 09:42 11:56 13:02 WBC 8.5 (4.8-10.8) X10*3/uL RBC 3.97 L (4.20-5.50) X10*6/uL Hgb 11.5 L (12.0-16.0) g/dl Hct 33.8 L (37.0-47.0) % MCV 85.1 (80.0-98.0) fL MCH 29.0 (27.0-33.0) pg MCHC 34.0 (31.0-35.0) g/dl RDW 12.8 (11.0-16.0) % Plt Count 232 D (160-400) X10*3/uL MPV 10.6 (9.4-12.3) fL Immature Gran % (Auto) 0.8 H (0.0-0.4) % Neut % (Auto) 70.0 (45-73) % Lymph % (Auto) 19.9 L (20-40) % [place] % (Auto) 7.3 (2-11) % Eos % (Auto) 1.6 (0-4) % Baso % (Auto) 0.4 (0-2) % Lymph # (Auto) 1.7 (1.2-4.9) X10*3/uL [place] # (Auto) 0.6 (0.1-1.2) X10*3/uL Eos # (Auto) 0.1 (0.0-0.4) X10*3/uL Baso # (Auto) 0.0 (0.0-0.2) X10*3/uL Abs Immat Gran (auto) 0.07 H (0.00-0.03) X10*3/uL Absolute Neuts (auto) 6.0 (2.0-8.3) x10*3/uL Absolute Nucleated RBC 0.000 (0.0-0.012) X10*3/uL Nucleated RBC % (auto) 0.0 (0.0-0.2) /100WBC Sodium 138 (135-145) mmol/L Potassium 4.3 (3.3-5.1) mmol/L Chloride 102 (96-108) mmol/L Carbon Dioxide 25 (22-29) mmol/L Anion Gap 15 (12-20) BUN 23 H (9-16) mg/dL Creatinine 1.18 (0.5-1.4) mg/dL Estim Creat Clear Calc 54.7 Estimated GFR 47 POC Glucose 129 H (60-115) mg/dL Random Glucose 298 H (60-115) mg/dL Calcium 10.2 (8.4-10.2) mg/dL Troponin I High Sens 9.3 (<3.5-17.0) ng/L Urine Color Yellow Urine Appearance Clear Urine pH 5.5 (5.0-9.0) Ur Specific [place] 1.020 (1.005-1.025) Urine Protein 30 (1+) H (Neg-Trace) mg/dL Urine Glucose (UA) 500 H (Negative) mg/dL Urine Ketones Negative (Negative) mg/dL Urine Blood Negative (Negative) Urine Nitrite Negative (Negative) Ur Leukocyte Esterase Trace H (Negative) Urine RBC 0-2 (0-2) /HPF Urine WBC 0-5 (0-5) /HPF Ur Squamous Epith Cells 3-5 (0-2) /HPF Ur Renal Epithelial Cell Present Urine Bacteria 4+ (None Seen) Hyaline Casts 0-2 (0-2) /LPF Independent Interpretation I performed an independent interpretation of an: EKG (sinus 60, no st or twave changes) and Plain X-Ray (CXR: no infiltrate) Independent Historian Clinical information obtained from an independent historian. History obtained from or confirmed by: Other (son) Prescription Management I considered prescription management with: Antibiotic (Patient with RSV, no evidence of pneumonia on xray) Chronic Conditions Patient?s care impacted by: Diabetes and Hypertension Discharge Plan Discharge Clinical Impression: Upper respiratory infection, Respiratory syncytial virus (RSV), Hypertension, Diabetes Patient Disposition: Home, Self-Care Instructions: Upper Respiratory Infection (ED), Hypertension (ED), Type 2 Diabetes Management for Adults (ED) Prescriptions: New amlodipine 5 mg tablet 5 mg PO DAILY Qty: 30 0RF hydralazine 25 mg tablet 25 mg PO BID Qty: 60 0RF Robitussin Cough and Cold CF 2.5-5-50 mg/5 mL liquid 20 ml PO Q4H PRN (Reason: cough) Qty: 118 0RF No Action atenolol 100 mg Tablet 100 mg PO DAILY Novolin 70/30 U-100 Insulin 100 unit/mL (70-30) Suspension 35 unit SUBCUT BID aspirin 81 mg Tablet,Delayed Release (Dr/Ec) 81 mg PO DAILY amlodipine 5 mg Tablet 5 mg PO DAILY Qty: 90 0RF Protocol: Hold for SBP< HOLD for SBP < : 90 atorvastatin 40 mg Tablet 40 mg PO BEDTIME Qty: 90 0RF hydralazine 25 mg tablet 25 mg PO BID Qty: 60 0RF atenolol 100 mg tablet 100 mg PO DAILY Qty: 90 0RF Referrals: Physician,None [Primary Care Provider] - 5 days
[2023-07-28 12:13] LABS: Appearance Urine Clear; Color Urine Yellow; Glucose Urine UA 500 mg/dL (Negative); Leukocyte Esterase Urine Trace (Negative); Nitrite Urine Negative (Negative); PH 5.5 (5.0-9.0); UMIC TRIGGER UACC YES; Urine Blood Negative (Negative); Urine Ketones Negative (Negative); Urine Protein 30 (1+) mg/dL (Neg-Trace)
[2023-07-28] MEDS: Insulin Lispro 100 UNIT/ML 3 ML VIAL SUBCUT (12:26)
[2023-07-28] MEDS: guaiFENesin 200 MG/10 ML 10 ML LIQUID 20 ML PO (12:27)
[2023-07-28 12:32] LABS: RBC Urine 0-2 /HPF (0-2); WBC Urine 0-5 /HPF (0-5)
--- NOTE | 2023-07-28 12:32 | PC.NURSE ---
a&ox4. vss and up to date. nsr on the quality assurance monitor final. pt presents to the ED today w/ sternal c/p that worsens w/ deep inspiration/cough. productive cough noted. no sob/wob noted. pt able to speak in full/clear sentences w/o difficulty. respirations even and unlabored. medication administered per provider order. pt going to xray at this time. will reassess POC when pt returns.
[2023-07-28 12:33] LABS: Bacteria Urine 4+ (None Seen); Hyaline Casts Urine 0-2 /LPF (0-2); Renal Epithelial Cells Urine Present
[2023-07-28] MEDS: atenoloL 100 MG TABLET PO (13:04)
[2023-07-28] MEDS: amLODIPine Besylate 10 MG TABLET PO (13:04)
[2023-07-28] MEDS: hydrALAZINE HCl 25 MG TABLET PO (13:04)
--- NOTE | 2023-07-28 13:06 | PC.NURSE ---
POC = 129mg/dL post insulin administration. pt remains hypertensive - medication administered per provider order. will reassess BP shortly.
[2023-07-28 13:07] LABS: Glucose, Whole Blood 129 mg/dL (60-115)
[2023-07-28 13:36] VITALS: BP 173/61; PULSE 59; RESP 16; O2SAT 97
--- NOTE | 2023-07-28 13:37 | PC.NURSE ---
pt's BP decreasing at this time. resting comfortably in no apparent distress. respirations remain even and unlabored. call stacy placed within reach.
[2023-07-28 14:33] VITALS: BP 164/83; PULSE 62; RESP 16; TEMP 36.6; O2SAT 95
[2023-07-28 15:01] VITALS: BP 113/44
--- NOTE | 2023-07-28 15:27 | PC.NURSE ---
pt c/o new onset dizziness/lightheadedness. pt's BP dropped to 113/44. POC obtained = 117mg/dL. pt provided w/ orange juice and a pb &j to increase sugar. will recheck POC shortly/attempt to get pt up and ambulating.
[2023-07-28 15:29] LABS: Glucose, Whole Blood 117 mg/dL (60-115)
[2023-07-28 15:52] LABS: Glucose, Whole Blood 121 mg/dL (60-115)
--- NOTE | 2023-07-28 15:57 | PC.NURSE ---
repeat POC = 127mg/dL. pt provided w/ d/c paperwork. pt leaving facility w/ family members at this time.
== END 2023-07-28 15:58 | disposition home or self-care (01) ==
PROVIDERS: Emergency Provider Emergency Medicine
DX: J06.9 Acute upper respiratory infection, unspecified (principal); B97.4 Respiratory syncytial virus as the cause of diseases classified elsewhere; I10 Essential (primary) hypertension; E11.9 Type 2 diabetes mellitus without complications; Z79.82 Long term (current) use of aspirin; Z79.4 Long term (current) use of insulin; Z79.02 Long term (current) use of antithrombotics/antiplatelets; Z79.899 Other long term (current) drug therapy
CPT/HCPCS: 36415; 71046; 80048; 81001; 82947; 84484; 85025; 93005; 99283; 99285

== ENCOUNTER → 2023-07-28 09:02 | Outpatient (BNV) | payer SELFPAY | PROVIDERS: Emergency Provider Emergency Medicine; Visit Provider Internal Medicine Cardiovascular Disease | DX: R94.31 Abnormal electrocardiogram [ECG] [EKG] (principal) | CPT/HCPCS: 93010 ==

== ENCOUNTER 2024-04-05 12:15 | Emergency (ER) | payer MEDICAID, OTHER, SELFPAY ==
--- NOTE | ~2024-04-05 | CT_ITS ---
EXAMINATION: CT LUMBAR SPINE WITHOUT CONTRAST CLINICAL INFORMATION: Infiltrate radiating down left leg COMPARISON: CT abdomen and pelvis 11/10/2022 TECHNIQUE: Contiguous axial imaging of the lumbar spine was performed This CT examination was performed using dose optimization techniques as appropriate, variously including the following: *Automated exposure control *Adjustment of mA and/or kV according to patient size (this includes techniques or standardized protocols for targeted exams where dose is matched to indication/reason for exam; i.e. extremities or head) *Use of iterative reconstruction technique DLP; 622 mGy-cm2 FINDINGS: Hypoplastic 12th ribs. There are 5 nonrib-bearing lumbar-type vertebral bodies . Lumbosacral transitional vertebrae with partial sacralization of L5. Diffuse decrease in osseous mineralization slightly limiting evaluation. The lumbar vertebral bodies demonstrate normal height. Overall sagittal alignment is maintained. Small endplate osteophytes at multiple levels. Mild intervertebral disc space narrowing at L5-S1. Small T12 vertebral body hemangioma. No acute fracture involving the lumbar spine. The paravertebral soft tissues appear unremarkable. Nonaneurysmal abdominal aorta with aortoiliac atherosclerosis. Degenerative changes involving bilateral sacroiliac joints. T12-L1: No spinal canal or foraminal stenosis. L1-L2: Mild disc bulge. No spinal canal or foraminal stenosis. L2-L3: Mild disc bulge mildly indenting the thecal sac. Mild bilateral foraminal narrowing. L3-L4: Disc bulge with thickened ligamentum flavum, moderate right and mild left facet arthropathy. Moderate to severe spinal canal stenosis. Moderate right and mild left foraminal stenosis. L4-L5:Disc bulge with thickened ligamentum flavum and severe bilateral facet arthropathy. Severe spinal canal stenosis with subarticular stenosis. Severe left and moderate to severe right foraminal stenosis. L5-S1: No spinal canal or foraminal stenosis. Moderate bilateral facet arthropathy. CT/CT lumbar spine wo IV con IMPRESSION: Diffuse decrease in osseous mineralization slightly limiting evaluation. No acute fracture involving the lumbar spine. Multilevel lumbar spondylosis as detailed. At L4-L5, there is disc bulge with thickened ligamentum flavum and severe bilateral facet arthropathy resulting in severe spinal canal stenosis with subarticular stenosis, severe left and moderate to severe right foraminal stenosis. At L3-L4, there is disc bulge with thickened ligamentum flavum, moderate right and mild left facet arthropathy. Moderate to severe spinal canal stenosis. Moderate right and mild left foraminal stenosis. Electronically signed by: Jamie Uriostegui MD 04/05/2024 04:47 PM EDT
[2024-04-05 13:13] VITALS: BP 156/58; PULSE 54; RESP 16; TEMP 36; O2SAT 96; BMI 40.0
--- NOTE | 2024-04-05 13:13 | ED_ITS ---
HPI - General Adult General Chief complaint: Back Pain/Injury Stated complaint: Sciatic pain Time Seen by Provider: 04/05/24 14:41 Source: patient, RN notes reviewed and old records reviewed Mode of arrival: ambulatory History of Present Illness ED Provider: Deisi Flores PA-C HPI narrative: 63-year-old female with a past medical history of diabetes, hypertension, presenting to the ED complaining of left-sided low back pain radiating down left lower extremity x few days. Admits to similar symptoms in the past. Denies known injury/trauma or fall. Denies numbness, tingling, weakness, hematuria/dysuria, new or worsening incontinence/retention. Reports chronic incontinence, however not always, & improved from the past. Has been taking Motrin for pain without relief Related Data Home Medications ?Medication ?Instructions ?Recorded ?Confirmed aspirin 81 mg tablet,delayed 81 mg PO DAILY 11/09/22 11/09/22 release atenolol 100 mg tablet 100 mg PO DAILY 11/09/22 11/09/22 insulin human U-100 NPH-regulr 35 unit subcut BID 11/09/22 11/09/22 70-30 mix 100 unit/mL subcutaneous susp (Novolin 70/30 U-100 Insulin) Previous Rx's ?Medication ?Instructions ?Recorded amlodipine 5 mg tablet 5 mg PO DAILY #90 tabs 11/11/22 atorvastatin 40 mg tablet 40 mg PO BEDTIME #90 tabs 11/11/22 hydralazine 25 mg tablet 25 mg PO BID #60 tabs 11/11/22 atenolol 100 mg tablet 100 mg PO DAILY #90 tabs 11/13/22 amlodipine 5 mg tablet 5 mg PO DAILY #30 tabs 07/28/23 hydralazine 25 mg tablet 25 mg PO BID #60 tabs 07/28/23 [id number]-[id number] 2.5 20 ml PO Q4H PRN cough #118 mL 07/28/23 mg-5 mg-50 mg/5 mL oral liquid (Robitussin Cough and Cold CF) acetaminophen 500 mg tablet 500 mg PO Q6H PRN fever or pain 04/05/24 (Tylenol Extra Strength) #14 tabs cyclobenzaprine 10 mg tablet 10 mg PO TID PRN muscle spasm #14 04/05/24 tabs lidocaine 5 % topical patch 1 patch topical DAILY PRN pain #30 04/05/24 (Lidoderm) ea naproxen 500 mg tablet 500 mg PO BID PRN pain 10 days #20 04/05/24 tabs prednisone 20 mg tablet 40 mg (2 x 20 mg) PO DAILY 5 days 04/05/24 #10 tabs Allergies Allergy/AdvReac Type Severity Reaction Status Date / Time No Known Allergies Allergy Verified 04/05/24 13:17 Review of Systems 2 Review of Systems: Yes all other systems are reviewed and are negative Constitutional: Constitutional: Reports as per HPI Neurologic: Denies Sensory deficit (Neuro) [facility] Past Medical History Attestation statement: The following information was validated with the patient. Source: old records reviewed Medical History Diabetes mellitus with insulin therapy (Unknown) Hypertension Social History Social History Household Members: Family Housing: House Do you presently have visiting nurse or other home services: No Alcohol intake: never Patient Tobacco Use Status: Never used Tobacco e-Cigarette/Vaping Use: Never Used Second Hand Smoke Exposure: No Advance Directives: Yes Advance Directives on File: Yes Advance Directives Date on File: 11/16/22 service: No Physical Exam ED Vital Signs: Vital Signs - 24 hr 04/05/24 13:13 04/05/24 18:18 Temperature 96.8 F 96.8 F Pulse Rate 54 54 Respiratory Rate 16 16 Blood Pressure 156/58 H 156/58 H Pulse Oximetry 96 96 Oxygen Delivery Method Room Air Room Air BMI result Body Mass Index 40.0 Const General: cooperative, healthy appearing and no acute distress Orientation/consciousness: patient oriented x3 Limitations: no limitations HENSC Head: Yes normal to inspection and Yes atraumatic Ears: hearing grossly normal bilaterally General nose exam: Normal external nose present Face and sinus: Yes normal facial exam Eyes General: appearance normal, both eyes and all related structures EOM: EOMs intact bilaterally Neck Neck: Yes normal visual inspection and Yes no meningeal signs Resp Effort & Inspection: normal respiratory effort and no respiratory distress Auscultation: clear to auscultation bilaterally Cardio Rate: regular rate Heart sounds: S1 normal heart sound present and S2 normal heart sound present GI Inspection: Yes normal to inspection Palpation (GI): Soft to palpation, nontender, no guarding and not rigid General: Yes no CVA tenderness Back/Spine/Pelvis Other: No midline cervical/thoracic/lumbar spinous tenderness/step-off or deformity. + left-sided lower lumbar/upper buttock reproducible tenderness. No swelling, ecchymosis or erythema Back: no CVA tenderness Skin Rashes: no rashes Wounds: no wounds Neuro Other: Strength intact throughout. No saddle anesthesia. Sensation intact to light touch. Neurovascular intact distally General: patient oriented x3, tone normal, moves all extremities and no meningeal signs Cranial nerves: Yes CN's II-XII intact bilaterally Gait exam (Neuro): Antalgic gait present Sensory Exam: No Sensory deficit (Neuro) Extrem General: Yes normal to inspection Course Course Course Narrative: This is a rapid medical exam performed by Arabella Cheng NP: Additional HPI, ROS, PE not included below will be deferred to primary provider. Patient is a 63-year-old Albanian speaking female presenting to the ED with son who is translating complaint of left sided back pain x 2 days radiating down left leg. Denies fall or other trauma. Denies saddle anesthesia, small amount of bladder and bowel incontinence but son states this has happened prior to her back pain. Plan: CT lumbar spine, UA -labs requested by family -[id number]--labs reassuring. CT lumbar spine wo IV con IMPRESSION: Diffuse decrease in osseous mineralization slightly limiting evaluation. No acute fracture involving the lumbar spine. Multilevel lumbar spondylosis as detailed. At L4-L5, there is disc bulge with thickened ligamentum flavum and severe bilateral facet arthropathy resulting in severe spinal canal stenosis with subarticular stenosis, severe left and moderate to severe right foraminal stenosis. At L3-L4, there is disc bulge with thickened ligamentum flavum, moderate right and mild left facet arthropathy. Moderate to severe spinal canal stenosis. Moderate right and mild left foraminal stenosis. > Results discussed with patient and son, recommended close neuro spine follow- up. Discussed worrisome signs and symptoms and strict return precautions, including new or worsening incontinence, weakness, inability to ambulate, fever, pain, etc. and when to return to the emergency department. They verbalized understanding and feel safe for discharge at this time. -UA contaminated, will hold on antibiotics at this time Medications Administered Discontinued Medications Generic Name Dose Route Start Last Admin Trade Name Freq PRN Reason Stop Dose Admin Cyclobenzaprine HCl 10 mg 04/05/24 15:34 04/05/24 16:20 Cyclobenzaprine Hcl 10 Mg Tablet PO 04/05/24 15:35 10 mg ONCE ONE Administration Ketorolac Tromethamine 30 mg 04/05/24 15:34 04/05/24 16:18 Ketorolac Tromethamine 30 Mg/Ml Vial IM 04/05/24 15:35 30 mg ONCE ONE Administration Medical Decision Making Medical Decision Making [facility] Narrative: 63-year-old female with a past medical history of diabetes, hypertension, presenting to the ED complaining of left-sided low back pain radiating down left lower extremity x few days. On exam vital signs stable, NAD, nontoxic appearing, no midline spinous tenderness throughout or red flag symptoms, no saddle anesthesia. Ambulatory with antalgic gait. Denies acute/new or worsening incontinence/retention. Concern for sciatica vs MSK pain/strain. Low suspicion for cauda equina/cord compression, fracture, epidural abscess, renal stone/pyelo or UTI Plan: UA, CT, pain control Please refer to course for remaining clinical decision making, interpretation of labs/imaging results, and discussions with consultants and/or family members. Differential Diagnosis Differential Diagnoses: The differential diagnosis associated with the presentation includes As above Admission/Observation Consideration of admission/observation: Escalation of care including admission/observation considered Lab Data [facility] Lab Attestation statement: I reviewed the patient's lab results. 04/05/24 16:30 04/05/24 16:30 Labs: Lab Results 04/05/24 04/05/24 Range/Units 16:30 16:44 WBC 6.9 (4.8-10.8) X10*3/uL RBC 4.30 (4.20-5.50) X10*6/uL Hgb 12.5 (12.0-16.0) g/dl Hct 36.4 L (37.0-47.0) % MCV 84.7 (80.0-98.0) fL MCH 29.1 (27.0-33.0) pg MCHC 34.3 (31.0-35.0) g/dl RDW 12.4 (11.0-16.0) % Plt Count 199 (160-400) X10*3/uL MPV 10.4 (9.4-12.3) fL Immature Gran % (Auto) 0.4 (0.0-0.4) % Neut % (Auto) 62.7 (45-73) % Lymph % (Auto) 25.9 (20-40) % [place] % (Auto) 7.1 (2-11) % Eos % (Auto) 3.5 (0-4) % Baso % (Auto) 0.4 (0-2) % Lymph # (Auto) 1.8 (1.2-4.9) X10*3/uL [place] # (Auto) 0.5 (0.1-1.2) X10*3/uL Eos # (Auto) 0.2 (0.0-0.4) X10*3/uL Baso # (Auto) 0.0 (0.0-0.2) X10*3/uL Abs Immat Gran (auto) 0.03 (0.00-0.03) X10*3/uL Absolute Neuts (auto) 4.3 (2.0-8.3) x10*3/uL Absolute Nucleated RBC 0.000 (0.0-0.012) X10*3/uL Nucleated RBC % (auto) 0.0 (0.0-0.2) /100WBC Sodium 140 (135-145) mmol/L Potassium 3.9 (3.3-5.1) mmol/L Chloride 102 (96-108) mmol/L Carbon Dioxide 30 H (22-29) mmol/L Anion Gap 12 (12-20) BUN 38 H (9-16) mg/dL Creatinine 1.42 H (0.5-1.4) mg/dL Estim Creat Clear Calc 42.3 Estimated GFR 38 Random Glucose 162 H (60-115) mg/dL Calcium 10.3 H (8.4-10.2) mg/dL Urine Color Yellow Urine Appearance Cloudy Urine pH 6.0 (5.0-9.0) Ur Specific [place] 1.020 (1.005-1.025) Urine Protein 30 (1+) H (Neg-Trace) mg/dL Urine Glucose (UA) Negative (Negative) mg/dL Urine Ketones Trace (Negative) mg/dL Urine Blood Negative (Negative) Urine Nitrite Positive H (Negative) Ur Leukocyte Esterase Small (1+) H (Negative) Urine RBC 0-2 (0-2) /HPF Urine WBC 11-20 H (0-5) /HPF Ur Squamous Epith Cells 11-20 (0-2) /HPF Urine Bacteria 3+ (None Seen) Hyaline Casts 0-2 (0-2) /LPF Independent Interpretation I performed an independent interpretation of an: CT Scan Radiology Impression Discussion of test interpretation with radiology: I have reviewed the radiologist's reading. Independent Historian Clinical information obtained from an independent historian. History obtained from or confirmed by: Other (son) External Record Review External record reviewed: Inpatient record, Office record, Outpatient record, Prior outpatient labs, Prior outpatient radiology, Primary care record and Outside ED record Tests considered The following testing was considered but not selected: As above Prescription Management I considered prescription management with: Pain Medication Chronic Conditions Patient?s care impacted by: Diabetes and Hypertension Discharge Plan Discharge Clinical Impression: Bulging lumbar disc, Sciatic leg pain Patient Disposition: Home, Self-Care Instructions: Sciatica (ED), Acute Low Back Pain (ED), Degenerative Disc Disease (ED) Additional Instructions: Your CT scan shows disc bulging resulting in spinal canal stenosis. YOU NEED TO FOLLOW-UP WITH [facility]UR[employer] MECH[employer]IC. PLEASE CALL TO MAKE AN APPOINTMENT Prednisone is a steroid which will help with inflammation. Please take as prescribed Flexeril is a muscle relaxer, take at night as it makes you drowsy, do not drive, drink alcohol, or operate machinery while taking it Naproxen as an anti-inflammatory / pain medication, take with food Lidoderm patches are numbing patches, apply to painful area In addition take Tylenol at home If symptoms persist or worsen, pain becomes unbearable, you developed urinary retention or incontinence, or weakness return to the ED Prescriptions: New cyclobenzaprine 10 mg tablet 10 mg PO TID PRN (Reason: muscle spasm) Qty: 14 0RF prednisone 20 mg tablet 40 mg PO DAILY 5 Days Qty: 10 0RF acetaminophen [Tylenol Extra Strength] 500 mg tablet 500 mg PO Q6H PRN (Reason: fever or pain) Qty: 14 0RF lidocaine [Lidoderm] 5 % adhesive patch,medicated 1 patch topical DAILY MDD remove after 12 hours PRN (Reason: pain) Qty: 30 0RF Rx Instructions: leave on most painful area for up to 12 hrs naproxen 500 mg tablet 500 mg PO BID PRN (Reason: pain) 10 Days Qty: 20 0RF No Action atenolol 100 mg Tablet 100 mg PO DAILY Novolin 70/30 U-100 Insulin 100 unit/mL (70-30) Suspension 35 unit SUBCUT BID aspirin 81 mg Tablet,Delayed Release (Dr/Ec) 81 mg PO DAILY amlodipine 5 mg Tablet 5 mg PO DAILY Qty: 90 0RF Protocol: Hold for SBP< HOLD for SBP < : 90 atorvastatin 40 mg Tablet 40 mg PO BEDTIME Qty: 90 0RF hydralazine 25 mg tablet 25 mg PO BID Qty: 60 0RF atenolol 100 mg tablet 100 mg PO DAILY Qty: 90 0RF amlodipine 5 mg tablet 5 mg PO DAILY Qty: 30 0RF hydralazine 25 mg tablet 25 mg PO BID Qty: 60 0RF Robitussin Cough and Cold CF 2.5-5-50 mg/5 mL liquid 20 ml PO Q4H PRN (Reason: cough) Qty: 118 0RF Referrals: [facility] [Provider Group] Interventions: ED Discharge Assessment Last Done: 04/05/24 18:18 Discharge Date/Time: 04/05/24 18:19 Print Language: Polish
[2024-04-05] MEDS: Ketorolac Tromethamine 30 MG/ML VIAL IM (16:18)
[2024-04-05] MEDS: Cyclobenzaprine HCl 10 MG TABLET PO (16:20)
[2024-04-05 16:33] LABS: MANUAL DIFF FLAG NO
[2024-04-05 16:36] LABS: Basophils Percent Auto 0.4 % (0-2); Eosinophils Absolute Auto 0.2 X10*3/uL (0.0-0.4); Eosinophils Percent Auto 3.5 % (0-4); Hematocrit 36.4 % (37.0-47.0); Hemoglobin 12.5 g/dl (12.0-16.0); Imm Gran Abs Auto 0.03 X10*3/uL (0.00-0.03); Imm Gran Pct Auto 0.4 % (0.0-0.4); Lymphocytes Absolute Auto 1.8 X10*3/uL (1.2-4.9); Lymphocytes Percent Auto 25.9 % (20-40); Mean Corpuscular HGB Conc 34.3 g/dl (31.0-35.0); Mean Corpuscular Hemoglobin 29.1 pg (27.0-33.0); Mean Corpuscular Volume 84.7 fL (80.0-98.0); Mean Platelet Volume 10.4 fL (9.4-12.3); Monocytes Absolute Auto 0.5 X10*3/uL (0.1-1.2); Monocytes Percent Auto 7.1 % (2-11); Neutrophils Absolute Auto 4.3 x10*3/uL (2.0-8.3); Neutrophils Percent Auto 62.7 % (45-73); Platelet Count 199 X10*3/uL (160-400); Red Cell Distribution Width 12.4 % (11.0-16.0); White Blood Count 6.9 X10*3/uL (4.8-10.8)
[2024-04-05 16:46] LABS: Anion Gap 12 (12-20); Blood Urea Nitrogen 38 mg/dL (9-16); Calcium 10.3 mg/dL (8.4-10.2); Carbon Dioxide 30 mmol/L (22-29); Chloride 102 mmol/L (96-108); Creatinine Clr Calc Pharmacy 42.3; Estimated Glomerular Filt Rate 38; Glucose Random 162 mg/dL (60-115); Potassium 3.9 mmol/L (3.3-5.1); Sodium 140 mmol/L (135-145)
[2024-04-05 17:05] LABS: Appearance Urine Cloudy; Color Urine Yellow; Glucose Urine UA Negative (Negative); Leukocyte Esterase Urine Small (1+) (Negative); Nitrite Urine Positive (Negative); UMIC TRIGGER UACC YES; Urine Blood Negative (Negative); Urine Ketones Trace mg/dL (Negative); Urine Protein 30 (1+) mg/dL (Neg-Trace)
[2024-04-05 18:18] VITALS: BP 156/58; PULSE 54; RESP 16; TEMP 36; O2SAT 96
[2024-04-05 18:56] LABS: Bacteria Urine 3+ (None Seen); Hyaline Casts Urine 0-2 /LPF (0-2); RBC Urine 0-2 /HPF (0-2); UACC Culture Trigger YES
== END 2024-04-05 18:19 | disposition home or self-care (01) ==
PROVIDERS: Physician Assistant; Registered Nurse Emergency; Emergency Provider Emergency Medicine
DX: M51.16 Intervertebral disc disorders with radiculopathy, lumbar region (principal); E11.8 Type 2 diabetes mellitus with unspecified complications; I10 Essential (primary) hypertension; Z79.4 Long term (current) use of insulin; Z79.899 Other long term (current) drug therapy; Z79.82 Long term (current) use of aspirin; Z79.02 Long term (current) use of antithrombotics/antiplatelets
CPT/HCPCS: 36415; 72131; 80048; 81001; 81003; 85025; 87086; 96372; 99284; J1885

== ENCOUNTER 2024-04-14 12:46 | Outpatient (AMB) | payer MEDICAID, SELFPAY ==
--- NOTE | 2024-04-14 12:53 | A.SPINEOV_ITS ---
Intake Visit Reasons: left sided low back pain Intake Note: Ms. Garsia is here today c/o left sided low back pain. Websphere Developer Required: Yes Websphere Developer Services: Websphere Developer Present Allergies No Known Allergies Allergy (Verified 04/05/24 13:17) Assessment & Plan Assessment & Plan (1) Lumbar radiculopathy: Code(s): M54.16 - Radiculopathy, lumbar region Category: Medical Plan Mrs Garsia is a 63-year-old female seen in follow-up today from the emergency room. She is originally from [place], just got here a few weeks ago when she was getting off the plane felt increase of sciatic pain. She has previously had issues with her back for years and has generally treated it with modification of activities, rest etc.. She was on a 12 hour flight from [place] here to [place] and when she got off she noticed a severe left leg pain which is radiating down into her outer thigh, outer calf and into the top of her foot. She has been limping around the house and having a lot of difficulty mobilizing. She was in the emergency room last week, she is prescribed prednisone, cyclobenzaprine, naproxen. These things have not really been doing much help her out. There was also a CT scan done showing some degenerative change with possible stenosis at L4-5. She came in here today for follow-up. The pain continues to be severe. She is having a lot of difficulty getting up and moving around. Her [id number]-[id number] is here with her today who is helping interpret and give me information about what is been going on. PMH: She is a diabetic, according to her [id number] she has been generally running her blood sugars in the mid 200s in the mornings when she wakes up. She has a history of hypertension, high cholesterol. She did have a stroke at some point maybe 20 years ago. The details of exactly all of her medical history are a bit vague. They were not able to tell me what her A1c number was. It sounds like she did not have any issue with her heart or her lungs or kidneys etc.. She did have a cholecystectomy done laparoscopically 15 years ago or so but report no other surgical history. Social hx: No smoking, drugs alcohol etc. Medications: Atenolol, twice a day insulin, naproxen, baby aspirin Allergies: None Physical exam: Patient is awake alert oriented, no acute distress, she is slow to stand up out of a chair, positive straight leg raise at about 45 degrees. Difficult to examine her from a motor standpoint because of the pain, there may be some slight weakness of her left dorsiflexion. Reflexes absent in the patella and Achilles bilaterally Imaging review: CT scan done at [facility] shows rather well-maintained alignment and disc height but there does appear to be possibly stenosis at L4-5. There limitations from what I can see on the CT scan. Impression: 63-year-old female with chronic low back pain with acute onset left leg pain it started after 12 hour flight from [place] to [place]. She has had the pain now for about 2 weeks. She has been on appropriate therapy with Motrin, muscle relaxers and prednisone. Her CT is very limited what I can see, I suspect there stenosis at L4-5. I am going to get an MRI to evaluate a little further and see if this is anything that would benefit from surgery or if it can just be gentle conservative care. Obviously, we would need to know much more about her medical history before we could consider surgery, at a minimum move need an A1c as they report her blood sugars are very high in the morning. Thank you for allowing us to care for your patient. The total time spent with this visit with this patient was 45 minutes reviewing history, physical exam, lumbar CT imaging review, and implementation of treatment plan or further diagnostic testing Jason Mejia MD,PhD [facility] Orders: Orders MR lumbar spine wo con Today M54.16 - Radiculopathy, lumbar region Coding Level of Care Code New Pt Level 4 (50689) Diagnoses Lumbar radiculopathy M54.16
== END 2024-04-14 13:57 | disposition home or self-care (01) ==
PROVIDERS: Visit Provider Physician Assistant
DX: M54.16 Radiculopathy, lumbar region (principal)
CPT/HCPCS: 99204

== ENCOUNTER → 2024-04-14 12:46 | Outpatient (BNVA) | payer MEDICAID, SELFPAY | PROVIDERS: Visit Provider Physician Assistant | DX: M54.16 Radiculopathy, lumbar region (principal) | CPT/HCPCS: 99212 ==

== ENCOUNTER 2024-04-26 18:21 | Outpatient (REF) | payer MEDICAID, OTHER, SELFPAY ==
--- NOTE | ~2024-04-26 | MR_ITS ---
EXAMINATION: MR LUMBAR SPINE WITHOUT CONTRAST CLINICAL INFORMATION: Lumbar radiculopathy. COMPARISON: CT lumbar spine 04/05/2024. TECHNIQUE: MRI of the lumbar spine was obtained using routine sequences without contrast. FINDINGS: There is transitional spinal anatomy at the lumbosacral junction. For the purposes of this examination may normal convention 5 lumbar segments will be utilized with the lowest rib-bearing vertebral segment designated as T12 and the S1 segment described as being partially lumbarized. There is grade 1 anterolisthesis of L5 on S1 related to advanced facet degenerative changes at this level. Alignment is otherwise normal. Vertebral body heights are preserved. No acute bone marrow signal changes. There is disc desiccation at multiple levels without substantial loss of intervertebral disc height. The tip of the conus medullaris is located at L1-L2. No mass effect on the conus. Visualized distal cord signal intensity is normal. At L1-L2 the annular contour is normal. No canal or neuroforaminal compromise. At L2-L3 there is a slightly bulging disc. Bilateral facet degenerative change. No canal stenosis. No mass effect on the traversing or foraminal nerve roots. At L3-L4 there is a bulging disc. Bilateral facet degenerative change. No canal stenosis. No mass effect on the traversing or foraminal nerve roots. At L4-L5 there is a bulging disc. Bilateral facet degenerative change. No canal stenosis. No mass effect on the traversing or foraminal nerve roots. At L5-S1 there is a pseudodisc bulge. Advanced bilateral facet degenerative change. Mild canal stenosis. Subarticular zone narrowing causes displacement and possible compression of both traversing S1 nerve roots, greater on the left. No foraminal nerve root compression. At S1-S2 there is no canal or neuroforaminal compromise. Limited visualization of the retroperitoneal anatomy reveals no abnormal finding. Psoas and paraspinal muscle groups are symmetric. MR/MR lumbar spine wo con IMPRESSION: There is transitional spinal anatomy at the lumbosacral junction. For the purposes of this examination may normal convention 5 lumbar segments will be utilized with the lowest rib-bearing vertebral segment designated as T12. The S1 segment segment will therefore be described as being partially lumbarized. There is multilevel degenerative spondylosis of the lumbar spine with grade 1 anterolisthesis of L5 on S1 related to advanced facet degenerative changes at this level. Mild canal stenosis at L5-S1. Subarticular zone narrowing at L5-S1 causes displacement and possible compression of both traversing S1 nerve roots, greater on the left. Otherwise no substantial mass effect on the traversing or foraminal nerve roots elsewhere within the lumbar spine. Electronically signed by: Herman Bernabe MD 04/28/2024 09:30 AM EDT RP
== END 2024-04-26 18:22 | disposition home or self-care (01) ==
LOC: HO.MRI 18:21
PROVIDERS: Visit Provider Physician Assistant
DX: M54.16 Radiculopathy, lumbar region (principal)
CPT/HCPCS: 72148

== ENCOUNTER 2024-05-15 11:47 | Outpatient (AMB) | payer MEDICAID, SELFPAY ==
--- NOTE | 2024-05-15 11:51 | A.OFFVIS_ITS ---
Vital Signs 05/15/24 11:53 Height 5 ft Weight 205 lb BMI 40.0 BP 140/88 H Blood Pressure Location Lt brachial Position Sitting Respiration 15 Pulse 60 Pulse Source Pulse Oximeter Pulse Oximetry (%) 96 Oxygen Delivery Method Room Air Intake Visit Reasons: Radiculopathy, lumbar region Day Care Supervisor Required: Yes Day Care Supervisor Name: Prefers daughter to translate Allergies No Known Allergies Allergy (Verified 06/02/24 11:30) Medication List - Last Reconciled 05/15/24 by Naa Navarrete LPN acetaminophen (Tylenol Extra Strength) 500 mg PO Q6H PRN amlodipine 5 mg See Protocol PO DAILY aspirin 81 mg PO DAILY atenolol 100 mg PO DAILY atorvastatin 40 mg PO BEDTIME insulin NPH and regular human 100 unit/mL (70-30) (Novolin 70/30 U-100 Insulin) 35 units subcut BID naproxen 500 mg PO BID PRN 10 days HPI HPI Radiculopathy, lumbar region: Details: 63-year-old female who presents today to the office for lumbar radiculopathy. She is originally from [place]. Her [id number] is here with her today, who is helping interpret and give me information.? She was referred by Dr. Saunders. She was on a 12-hour flight from [place] here to [place], and when she got off, she started experiencing pain on March 20, 2024, and felt an increase in sciatic pain a week after the travel. She noticed a severe left side hip/SI joint pain that was radiating down into her outer thigh, outer calf, and into th e top of her foot. The pain continues to be severe on the left side of the lower back. She is having a lot of difficulty getting up and moving around. Her pain alleviates when she sits down or rests. She has previously had issues with her back for years and has generally treated it with modifications of activities, rest, etc. She has been limping around the house and having a lot of difficulty mobilizing. She was in the emergency room and was prescribed prednisone, cyclobenzaprine, and naproxen. These things have not really been helping.?There was also a CT scan done showing some degenerative change with possible stenosis at L4-5. She reports having SOB recently and want to get it checked. She currently not established with primary care physician. She is taking baby aspirin. [facility] Medical History (Updated 06/02/24 @ 11:38 by lVad Queen MD) CKD (chronic kidney disease) stage 3, GFR 30-59 ml/min Hypertension New onset left bundle branch block (LBBB) Diabetes mellitus with insulin therapy (Unknown) HLD (hyperlipidemia) Family History Mother Diabetes Hypertension Father Hypertension Brother Diabetes Social History Household Members: Family Housing: House Do you presently have visiting nurse or other home services: No Alcohol intake: never Patient Tobacco Use Status: Never used Tobacco e-Cigarette/Vaping Use: Never Used Second Hand Smoke Exposure: No Advance Directives Date on File: 11/16/22 service: No Review of Systems Const All systems reviewed & are unremarkable except as noted in HPI and below Physical Exam Vital Signs: Last Vital Signs Pulse 60 05/15/24 11:53 Resp 15 05/15/24 11:53 BP 140/88 H 05/15/24 11:53 Pulse Ox 96 05/15/24 11:53 Oxygen Delivery Method Room Air 05/15/24 11:53 BMI result Body Mass Index 40.0 General: Appears afebrile. Alert and oriented. Mood and affect appropriate. Follows and participates in conversation appropriately. Respiratory effort is unlabored. Able to transition from sit to stand unassisted. Ambulates with bilaterally normal heel strike and toe off. Results Reviewed Results Reviewed: 04/26/2024:? MR LUMBAR SPINE WITHOUT CONTRAST FINDINGS: There is transitional spinal anatomy at the lumbosacral junction. For the purposes of this examination may normal convention 5 lumbar segments will be utilized with the lowest rib-bearing vertebral segment designated as T12 and the S1 segment described as being partially lumbarized. There is grade 1 anterolisthesis of L5 on S1 related to advanced facet degenerative changes at this level. Alignment is otherwise normal. Vertebral body heights are preserved. No acute bone marrow signal changes. There is disc desiccation at multiple levels without substantial loss of intervertebral disc height. The tip of the conus medullaris is located at L1-L2. No mass effect on the conus. Visualized distal cord signal intensity is normal. At L1-L2 the annular contour is normal. No canal or neuroforaminal compromise. At L2-L3 there is a slightly bulging disc. Bilateral facet degenerative change. No canal stenosis. No mass effect on the traversing or foraminal nerve roots. At L3-L4 there is a bulging disc. Bilateral facet degenerative change. No canal stenosis. No mass effect on the traversing or foraminal nerve roots. At L4-L5 there is a bulging disc. Bilateral facet degenerative change. No canal stenosis. No mass effect on the traversing or foraminal nerve roots. At L5-S1 there is a pseudodisc bulge. Advanced bilateral facet degenerative change. Mild canal stenosis. Subarticular zone narrowing causes displacement and possible compression of both traversing S1 nerve roots, greater on the left. No foraminal nerve root compression. At S1-S2 there is no canal or neuroforaminal compromise. Limited visualization of the retroperitoneal anatomy reveals no abnormal finding. Psoas and paraspinal muscle groups are symmetric. IMPRESSION: There is transitional spinal anatomy at the lumbosacral junction. For the purposes of this examination may normal convention 5 lumbar segments will be utilized with the lowest rib-bearing vertebral segment designated as T12. The S1 segment segment will therefore be described as being partially lumbarized. There is multilevel degenerative spondylosis of the lumbar spine with grade 1 anterolisthesis of L5 on S1 related to advanced facet degenerative changes at this level. Mild canal stenosis at L5-S1. Subarticular zone narrowing at L5-S1 causes displacement and possible compression of both traversing S1 nerve roots, greater on the left. Otherwise, no substantial mass effect on the traversing or foraminal nerve roots elsewhere within the lumbar spine. Assessment & Plan Assessment & Plan (1) Lumbar radiculopathy: Code(s): M54.16 - Radiculopathy, lumbar region Category: Medical Plan Discussed steroid injections as a possible treatment option. She is not an ideal candidate for surgical interventions. We will schedule her for a left parasagittal interlaminar L5-S1 epidural steroid injection on 05/18/2024. Discussed the risks and benefits of the procedure with the patient in detail. All questions were answered. The patient is on board with the plan. Given the history of elevated blood sugar levels, I ordered an HbA1C test today. I also prescribed gabapentin 300 mg PO QHS. Justification for interventional therapy: ? Patient with average pain > 6/10 ? Patient has exhausted conservative therapy. ? Patient unable to tolerate physical therapy due to pain. . Patient has a good understanding of their pain condition and has appropriate mental and social support Scribed for Dr. Matias by Angelo Maciel, general medical practitioner, on 05/15/2024. I, Dr. Matias, have personally reviewed and agree with the information entered by the scribe. Orders: Orders AMB Hemoglobin A1c 05/15/24 Z13.9 - Encounter for screening, unspecified Medications: New gabapentin 300 mg PO BEDTIME 90 caps 0RF Coding Level of Care Code New Pt Level 4 (20302) Diagnoses Lumbar radiculopathy M54.16
[2024-05-15 11:53] VITALS: BP 140/88; PULSE 60; RESP 15; O2SAT 96; BMI 40.0
== END 2024-05-15 12:36 | disposition home or self-care (01) ==
LOC: HO.PMC 11:47
PROVIDERS: Visit Provider Internal Medicine
DX: M54.16 Radiculopathy, lumbar region (principal)
CPT/HCPCS: 99204

== ENCOUNTER 2024-05-15 11:47 | Outpatient (REF) | payer MEDICAID, OTHER, SELFPAY | END 2024-05-15 11:48 | disposition home or self-care (01) | LOC: HO.LAB 11:47 | PROVIDERS: Visit Provider Internal Medicine | DX: M54.16 Radiculopathy, lumbar region (principal) | CPT/HCPCS: 36415; 99202; 99212 ==

== ENCOUNTER 2024-05-15 13:36 | Inpatient (IN) | payer MEDICAID, OTHER, SELFPAY ==
--- NOTE | ~2024-05-15 | XR_ITS ---
EXAMINATION: XR CHEST CLINICAL INFORMATION: Shortness of breath COMPARISON: Chest x-ray July 28, 2023 TECHNIQUE: 2 views of the chest were obtained. FINDINGS: No significant abnormality is noted involving the heart, lungs, mediastinum, bony thorax or soft tissues. XR/XR chest 2V IMPRESSION: Unremarkable examination. Electronically signed by: Maury Winston MD 05/15/2024 04:23 PM EDT RP
--- NOTE | ~2024-05-15 | NM_ITS ---
Lexiscan Myocardial perfusion study Indication: Left bundle-branch block, congestive heart failure Technique: The patient was brought in for a Lexiscan perfusion study on 05/19/2024 and was injected 0.4 mg of Lexiscan intravenously. Within a minute of this injection 25 mCi of sestamibi was given intravenously. Images were obtained using the SPECT gamma camera interlaced with the gating device. Images were obtained in supine position. Resting perfusion study was performed on 05/17/2024. Patient was administered 25 mCi of sestamibi intravenously at rest. Images were then obtained in supine position. Total DLP 94 mGy-cm. Images were processed with the software and compared side to side in short axis, horizontal long axis and vertical long axis views. Findings: Raw aquisition reviewed. The stress perfusion study showed diminished tracer uptake in the lateral wall; distal part of inferolateral wall. There is improvement with CT attenuation correction suggestive of soft tissue attenuation artifact. There is still a small defect in the distal inferolateral wall. The gated study shows reduced LV systolic function with calculated LVEF of 44%. LV cavity is normal in size. The gated study shows reduced wall thickening in the mid lateral wall. Resting study shows no significant perfusion abnormality. Gating at rest reveals normal wall motion with ejection fraction at 46%. The findings are consistent with reversible defect in the lateral wall; distal inferolateral wall. Probably all artifactual, but cannot exclude ischemia. NM/NM karen perf SPECT rest & str Impression: 1. Myocardial perfusion imaging study shows possible lateral wall ischemia vs artifactual. 2. Gated LVEF is 44% during stress and 46% during rest. Correlate with echocardiogram. 3. Transient ischemic dilatation not present. EKG component of the test reported separately. Electronically signed by: Elías Chi MD 05/19/2024 12:28 PM EDT
--- NOTE | 2024-05-15 14:15 | ED_ITS ---
HPI - SOB/Dyspnea General Chief Complaint: Dyspnea Stated Complaint: Diff breathing, swelling in feet Time Seen by Provider: 05/15/24 16:32 History of Present Illness ED Provider: micaela ARIAS Narrative: 63 years old from [place] with history of hypertension diabetes mellitus hyperlipidemia chronic back pain diastolic dysfunction comes here for increased shortness of breath on exertion for last 3 -4 weeks got worse in last few days denies any chest palpitation whenever she walks feels short of breath. On arrival noticed that patient has left bundle-branch block which was not there in the previous EKG done in 08/11 initial troponin was 11 BNP is elevated to 1035 Related Data Home Medications ?Medication ?Instructions ?Recorded ?Confirmed aspirin 81 mg tablet,delayed 81 mg PO DAILY 11/09/22 05/15/24 release atenolol 100 mg tablet 100 mg PO DAILY 11/09/22 05/15/24 insulin human U-100 NPH-regulr 30 unit subcut BID 11/09/22 05/15/24 70-30 mix 100 unit/mL subcutaneous susp (Novolin 70/30 U-100 Insulin) metformin 850 mg tablet 850 mg PO TIDWMEAL 05/15/24 05/15/24 Previous Rx's ?Medication ?Instructions ?Recorded atorvastatin 40 mg tablet 40 mg PO BEDTIME #90 tabs 11/11/22 Allergies Allergy/AdvReac Type Severity Reaction Status Date / Time No Known Allergies Allergy Verified 05/15/24 14:21 Review of Systems 2 Review of Systems: Yes all other systems are reviewed and are negative PMFSH Past Medical History Medical History HLD (hyperlipidemia) Diabetes mellitus with insulin therapy (Unknown) Hypertension Social History Social History Household Members: Family Housing: House Do you presently have visiting nurse or other home services: No Alcohol intake: never Patient Tobacco Use Status: Never used Tobacco Smoked in Last 30 Days: No e-Cigarette/Vaping Use: Never Used Second Hand Smoke Exposure: No Use of substances other than those prescribed or required for medical reasons: No Advance Directives: Yes Advance Directives on File: Yes Advance Directives Date on File: 11/16/22 Do you have a plan to hurt others: No Plan Recently lost weight without trying: No How much weight loss: Not applicable Eating poorly because of decreased appetite: No Nutrition screen score: 0 Nutrition Risks: No Nutritional Risk Patient : No : No service: No Physical Exam 2 Vital Signs: Vital Signs: Last Vital Signs Temp 97.4 F 05/15/24 23:50 Pulse 58 05/15/24 23:50 Resp 20 05/15/24 23:50 BP 116/56 L 05/15/24 23:50 Pulse Ox 99 05/15/24 23:50 O2 Del Method Room Air 05/15/24 23:50 BMI result Body Mass Index 38.9 Appearance: Alert. Oriented X3. No acute distress. Eyes: No pallor or icterus ENT: Pharynx normal. Oral Mucosa moist Neck: Normal inspection. Neck supple. CVS: Normal heart rate and rhythm. Pulses normal. Respiratory: No respiratory distress. Equal air entry bilateral, few rales at the base Abdomen: Soft and nontender. Bowel sounds are present, no mass palpable, no CVA tenderness Skin: Skin warm and dry. Normal skin color. Normal skin turgor. Extremities: 2+ lower extremity edema. No calf tenderness Neuro: Oriented X 3. No motor deficit. No sensory deficit.No cerebellar signs , cranial nerves II-XII intact Course Course Course Narrative: This is a Rapid Medical Exam performed in triage by Deisi Flores PA-C. Full HPI, ROS and PE to be performed by primary ED provider. 63-year-old female with a past medical history of diabetes, HTN, CVA on ASA, Yoruba speaking presenting to the ED c/o SOB, worse on exertion x 1 week w/bilateral LE swelling. Admits to palpitations. denies CP, fever.. Also reports chronic back pain following with pain management. denies hx blood clots PE: + bilateral LE pitting edema, diminished lung sounds throughout Plan: EKG, labs, CXR, viral studies Medications Administered Generic Name Dose Route Start Last Admin Trade Name Freq PRN Reason Stop Dose Admin Enoxaparin Sodium 40 mg 05/15/24 18:00 05/15/24 19:05 Enoxaparin Sodium 40 Mg/0.4 Ml Syringe SUBCUT 40 mg Q24H KAYLEE Administration Insulin Human Lispro 0 unit 05/15/24 21:00 05/15/24 21:17 Insulin Lispro 100 Unit/Ml 3 Ml Vial SUBCUT Not [facility] Protocol Sodium Chloride 3 ml 05/16/24 00:00 05/15/24 23:50 0.9 % Sodium Chloride Flush 3 Ml Syringe IVFLUSH 3 ml QSHIFT [facility] Administration Discontinued Medications Generic Name Dose Route Start Last Admin Trade Name Freq PRN Reason Stop Dose Admin Furosemide 20 mg 05/15/24 16:45 05/15/24 17:03 Furosemide 20 Mg/2 Ml Vial IVPUSH 05/15/24 16:46 20 mg ONCE ONE Administration Protocol Furosemide 20 mg 05/15/24 18:21 05/15/24 19:05 Furosemide 20 Mg Tablet PO 05/15/24 18:22 20 mg ONCE ONE Administration Protocol Hydralazine HCl 20 mg 05/15/24 22:01 05/15/24 22:38 Hydralazine Hcl 20 Mg/Ml Vial IVPUSH 05/15/24 22:02 20 mg ONCE ONE Administration Protocol Nitroglycerin 0.5 inch 05/15/24 18:22 05/15/24 19:06 Nitroglycerin 2 % Oint 1 Gm Packet TRANSDERMA 05/15/24 18:23 0.5 inch ONCE ONE Administration Medical Decision Making Medical Decision Making [facility] Narrative: Patient with exertional shortness a breath with CHF with new onset left bundle branch will admit patient for rule out ACS diurese using Lasix IV Differential Diagnosis Differential Diagnoses: The differential diagnosis associated with the presentation includes Admission/Observation Consideration of admission/observation: Escalation of care including admission/observation considered Consult Healthcare Provider Management of the patient was discussed with: Hospitalist Lab Data [facility] Lab Attestation statement: I reviewed the patient's lab results. 05/15/24 15:16 05/15/24 15:16 Labs: Lab Results 05/15/24 05/15/24 Range/Units 15:16 17:00 WBC 6.3 (4.8-10.8) X10*3/uL RBC 3.62 L (4.20-5.50) X10*6/uL Hgb 10.5 L (12.0-16.0) g/dl Hct 31.5 L (37.0-47.0) % MCV 87.0 (80.0-98.0) fL MCH 29.0 (27.0-33.0) pg MCHC 33.3 (31.0-35.0) g/dl RDW 13.9 (11.0-16.0) % Plt Count 209 (160-400) X10*3/uL MPV 11.3 (9.4-12.3) fL Immature Gran % (Auto) 0.3 (0.0-0.4) % Neut % (Auto) 70.0 (45-73) % Lymph % (Auto) 19.0 L (20-40) % [place] % (Auto) 7.8 (2-11) % Eos % (Auto) 2.4 (0-4) % Baso % (Auto) 0.5 (0-2) % Lymph # (Auto) 1.2 (1.2-4.9) X10*3/uL [place] # (Auto) 0.5 (0.1-1.2) X10*3/uL Eos # (Auto) 0.2 (0.0-0.4) X10*3/uL Baso # (Auto) 0.0 (0.0-0.2) X10*3/uL Abs Immat Gran (auto) 0.02 (0.00-0.03) X10*3/uL Absolute Neuts (auto) 4.4 (2.0-8.3) x10*3/uL Absolute Nucleated RBC 0.000 (0.0-0.012) X10*3/uL Nucleated RBC % (auto) 0.0 (0.0-0.2) /100WBC PT 12.8 H (10.9-12.4) SEC INR 1.1 (0.9-1.1) APTT 32.4 (26.0-36.8) SEC Sodium 139 (135-145) mmol/L Potassium 4.2 (3.3-5.1) mmol/L Chloride 104 (96-108) mmol/L Carbon Dioxide 27 (22-29) mmol/L Anion Gap 12 (12-20) BUN 28 H (9-16) mg/dL Creatinine 1.32 (0.5-1.4) mg/dL Estim Creat Clear Calc 47.3 Estimated GFR 41 Random Glucose 173 H (60-115) mg/dL Calcium 10.2 (8.4-10.2) mg/dL Magnesium 2.1 (1.6-2.6) mg/dL Total Bilirubin 0.4 (0.0-1.0) mg/dL Direct Bilirubin 0.1 (0.0-0.5) mg/dL AST 35 H (5-31) U/L ALT 29 (0-31) U/L Alkaline Phosphatase 84 (39-117) U/L Troponin I High Sens 11.5 (<3.5-17.0) ng/L B-Natriuretic Peptide 1035 H (<100) pg/mL Total Protein 6.7 (6.5-8.0) g/dL Albumin 3.6 (3.5-5.0) g/dL Influenza Type A (PCR) NEGATIVE (Negative) Influenza Type B (PCR) NEGATIVE (Negative) RSV RNA Qual (PCR) NEGATIVE (Negative) SARS-CoV-2 RNA (RT-PCR) NEGATIVE (Negative) Independent Interpretation I performed an independent interpretation of an: EKG and Plain X-Ray Interpretation: Normal sinus rhythm heart rate 53 left bundle-branch block new as compared to previous EKGs no acute ST elevation no acute ischemia Radiology Impression Discussion of test interpretation with radiology: I have reviewed the radiologist's reading. Discharge Plan Discharge Clinical Impression: Acute heart failure, New onset left bundle branch block (LBBB) Patient Disposition: Admitted As Inpatient Interventions: Admission Worksheet (ED) Last Done: 05/15/24 19:26 Discharge Date/Time: 05/15/24 20:13
[2024-05-15 14:16] VITALS: BP 190/56; PULSE 53; RESP 16; TEMP 36.4; O2SAT 97; BMI 38.9
--- NOTE | 2024-05-15 14:16 | ECG_ITS ---
Test Reason : SOB Blood Pressure : / mmHG Vent. Rate : 053 BPM Atrial Rate : 053 BPM P-R Int : 202 ms QRS Dur : 168 ms QT Int : 520 ms P-R-T Axes : 054 -48 125 degrees QTc Int : 487 ms Sinus bradycardia Left axis deviation Left bundle branch block Abnormal ECG When compared with ECG of 28-JUL-2023 09:30, Left bundle branch block is now Present Referred By: Deisi Flores Electronically Signed By:ANGEL ULLOA
[2024-05-15 15:22] LABS: MANUAL DIFF FLAG NO
[2024-05-15 15:23] LABS: Basophils Percent Auto 0.5 % (0-2); Eosinophils Absolute Auto 0.2 X10*3/uL (0.0-0.4); Eosinophils Percent Auto 2.4 % (0-4); Hematocrit 31.5 % (37.0-47.0); Hemoglobin 10.5 g/dl (12.0-16.0); Imm Gran Abs Auto 0.02 X10*3/uL (0.00-0.03); Imm Gran Pct Auto 0.3 % (0.0-0.4); Lymphocytes Absolute Auto 1.2 X10*3/uL (1.2-4.9); Mean Corpuscular HGB Conc 33.3 g/dl (31.0-35.0); Mean Platelet Volume 11.3 fL (9.4-12.3); Monocytes Absolute Auto 0.5 X10*3/uL (0.1-1.2); Monocytes Percent Auto 7.8 % (2-11); Neutrophils Absolute Auto 4.4 x10*3/uL (2.0-8.3); Platelet Count 209 X10*3/uL (160-400); Red Blood Count 3.62 X10*6/uL (4.20-5.50); Red Cell Distribution Width 13.9 % (11.0-16.0); White Blood Count 6.3 X10*3/uL (4.8-10.8)
[2024-05-15 15:30] LABS: INTERNATIONAL NORM RATIO 1.1 (0.9-1.1); Prothrombin Time 12.8 SEC (10.9-12.4)
[2024-05-15 15:40] LABS: Alanine Aminotransferase 29 U/L (0-31); Albumin Level 3.6 g/dL (3.5-5.0); Alkaline Phosphatase 84 U/L (39-117); Anion Gap 12 (12-20); Aspartate Amino Transferase 35 U/L (5-31); Bilirubin Direct 0.1 mg/dL (0.0-0.5); Bilirubin Total 0.4 mg/dL (0.0-1.0); Blood Urea Nitrogen 28 mg/dL (9-16); Calcium 10.2 mg/dL (8.4-10.2); Carbon Dioxide 27 mmol/L (22-29); Chloride 104 mmol/L (96-108); Creatinine Clr Calc Pharmacy 47.3; Estimated Glomerular Filt Rate 41; Glucose Random 173 mg/dL (60-115); Magnesium 2.1 mg/dL (1.6-2.6); Potassium 4.2 mmol/L (3.3-5.1); Sodium 139 mmol/L (135-145); Total Protein 6.7 g/dL (6.5-8.0)
[2024-05-15 15:45] LABS: B Type Natriuretic Peptide 1035 pg/mL (<100)
[2024-05-15 15:46] LABS: Troponin-I High Sensitivity 11.5 ng/L (<3.5-17.0)
[2024-05-15] MEDS: Furosemide 20 MG/2 ML VIAL IVPUSH (17:03)
--- NOTE | 2024-05-15 17:30 | P.HPHOSP_ITS ---
History of Present Illness Date of Service: 05/15/24 Chief Complaint: Shortness of breath and legs edema for weeks 63-year-old female ROP speaking patient with history of CVA 15 years ago, hypertension, hyperlipidemia, uncontrolled diabetes, chronic back pain. Patient is accompanied by her son who helped with translation. She presents to the emergency room with 3 to 4 weeks of shortness of breath worse with exertion, and associated increased leg edam. She described orthopnea and 2-pillow PND. Although chest x-ray is unremarkable, BNP level is 1035. ECG show a LBBB that is new, she reports no chest pain. Her last echo from October 2022 showed diastolic dysfunction and EF > 70%. She has received Lasix for heart failure. Review of Systems 2 Review of Systems: Gen: no fever Resp: no sob, no cough CV: no chest, + GAFFNEY, n+leg edema GI: No n/v, no abd pain Neuro: No confusion [facility] Medical History HLD (hyperlipidemia) Diabetes mellitus with insulin therapy (Unknown) Hypertension Social History Household Members: Family Housing: House Do you presently have visiting nurse or other home services: No Alcohol intake: never Patient Tobacco Use Status: Never used Tobacco Smoked in Last 30 Days: No e-Cigarette/Vaping Use: Never Used Second Hand Smoke Exposure: No Use of substances other than those prescribed or required for medical reasons: No Advance Directives: Yes Advance Directives on File: Yes Advance Directives Date on File: 11/16/22 Do you have a plan to hurt others: No Plan Patient : No service: No Meds Allergies Allergy/AdvReac Type Severity Reaction Status Date / Time No Known Allergies Allergy Verified 05/15/24 14:21 Home Medications ?Medication ?Instructions ?Recorded ?Confirmed ?Last Taken ?Type aspirin 81 mg tablet,delayed 81 mg PO DAILY 11/09/22 05/15/24 11/09/22 History release atenolol 100 mg tablet 100 mg PO DAILY 11/09/22 05/15/24 11/09/22 History insulin human U-100 NPH-regulr 35 unit subcut BID 11/09/22 05/15/24 Unknown History 70-30 mix 100 unit/mL subcutaneous susp (Novolin 70/30 U-100 Insulin) Physical Exam 2 Vital Signs and Narrative: Vital Signs: Last Vital Signs Temp 97.6 F 05/15/24 14:16 Pulse 53 05/15/24 14:16 Resp 16 05/15/24 14:16 BP 190/56 H 05/15/24 14:16 Pulse Ox 97 05/15/24 14:16 O2 Del Method Room Air 05/15/24 14:16 BMI result Body Mass Index 38.9 Const: Other: General: AO X 3, no acute distress Resp: Bilateral rales CVS: S1,S2,RRR, 3+pedal edam, +JVD GI: +BS, NT, no distention Skin: No rash Neuro: motor grossly intact Psych: appropriate affect Results Labs 05/15/24 15:16 05/15/24 15:16 Labs: Laboratory Results - last 24 hr 05/15/24 15:16 MCV 87.0 MCH 29.0 MCHC 33.3 RDW 13.9 Plt Count 209 MPV 11.3 Immature Gran % (Auto) 0.3 Neut % (Auto) 70.0 Lymph % (Auto) 19.[address] % (Auto) 7.8 Eos % (Auto) 2.4 Baso % (Auto) 0.5 Lymph # (Auto) 1.2 [place] # (Auto) 0.5 Eos # (Auto) 0.2 Baso # (Auto) 0.0 Abs Immat Gran (auto) 0.02 Absolute Neuts (auto) 4.4 Absolute Nucleated RBC 0.000 Nucleated RBC % (auto) 0.0 PT 12.8 H INR 1.1 Anion Gap 12 Estim Creat Clear Calc 47.3 Estimated GFR 41 Random Glucose 173 H Calcium 10.2 Magnesium 2.1 Total Bilirubin 0.4 Direct Bilirubin 0.1 AST 35 H ALT 29 Alkaline Phosphatase 84 Troponin I High Sens 11.5 B-Natriuretic Peptide 1035 H Total Protein 6.7 Albumin 3.6 Imaging Radiologist's Impressions: Impressions Chest X-Ray 05/15/24 14:45 IMPRESSION: Unremarkable examination. Electronically signed by: Maury Winston MD 05/15/2024 04:23 PM EDT RP Assessment and Plan (1) Acute heart failure: Status: Acute Plan 63/F with DM, HTN, HLD, h/o stroke here with 3-4 weeks of SOB, elvated BNP, PND and Orthopnea--clinical presentation most consistent with acute heart failure. BNP level is 1035. ECG show a LBBB that is new, Acute Heart failure--systolic vs diastolic heart failure, ischemic CM cannot be excluded -IV Lasix -Echo tomorrow -follow BMP -Monitor I/O, weight, -minize salt New LBBB -normal trop, -she may need ischemic work up, but will leave it to cardiology -ASA, statin, BBB -Echo HTN--BP is presently elevated -resume home meds -she will need TERRI/ARB, or aldactone uncontrolled Diabetes HLD -Statin Lovenox for dvt prophylaxis Full code admission for at least 2 midnights for management of acute heart failure that needs IV diuretics and further testing further testing Quality Stroke Does the patient have a stroke diagnosis?: No VTE Prior VTE?: No VTE Risk Level:: Medical - moderate - high VTE Device Contraindication: Treatment Not Indicated VTE Drug Contraindication: N/A - Med Ordered
[2024-05-15 17:32] VITALS: BP 189/74; PULSE 52; RESP 13; TEMP 36.8; O2SAT 97
[2024-05-15 17:40] LABS: Influenza A PCR NEGATIVE (Negative); Influenza B PCR NEGATIVE (Negative); Resp Syncy Virus RNA Qual PCR NEGATIVE (Negative); SARS COV2 PCR INHOUSE NEGATIVE (Negative)
--- NOTE | 2024-05-15 17:49 | PC.NURSE ---
pt English speaking. comes to ED with SOB on exertion for about 1 week. +1 pitting pedal edema. IV places 20g right AC. lasix given. pt standby assist to commode, pt is very steady on their feet. LSCB
[2024-05-15 18:22] LABS: Partial Thromboplastin Time 32.4 SEC (26.0-36.8)
[2024-05-15 18:26] LABS: Troponin-I High Sensitivity 14.5 ng/L (<3.5-17.0)
[2024-05-15] MEDS: Furosemide 20 MG TABLET PO (19:05)
[2024-05-15] MEDS: Enoxaparin Sodium 40 MG/0.4 ML SYRINGE SUBCUT (19:05)
[2024-05-15] MEDS: Nitroglycerin 2 % Oint 1 GM Packet 0.5 INCH TRANSDERMA (19:06)
[2024-05-15 19:21] VITALS: BP 181/55; PULSE 54; RESP 17; TEMP 36.9; O2SAT 98
--- NOTE | 2024-05-15 19:21 | PC.NURSE ---
this rn assumed care of pt. pt family at bedside to translate to occitan. pt a&ox4, respirations even and unlabored. provider aware of high BP.
--- NOTE | 2024-05-15 19:37 | PHA.MEDREC ---
Addendum entered by Pedro Brandt RPh 05/15/24 19:52: MED REC CHECK BY [facility] Original Note: Pharmacy Consult ? Medication Reconciliation Pharmacy has completed the medication reconciliation. Spoke to patient through Son translating. Patient had baster pack of Atenolol 100 mg daily, Atorvastatin 20 mg at bedtime, Meformin 850 mg TID and a vial of Maxtard 30 ( Novolin) 30 units BID [place]. patent last took her medication today in the morning .
[2024-05-15 20:59] VITALS: BP 196/86; PULSE 53; RESP 20; TEMP 36.5; O2SAT 20
[2024-05-15 21:20] LABS: Glucose, Whole Blood 113 mg/dL (60-115)
[2024-05-15 21:28] VITALS: BMI 37.7
[2024-05-15 21:45] VITALS: BP 202/90; PULSE 54; RESP 19
[2024-05-15] MEDS: hydrALAZINE HCl 20 MG/ML VIAL IVPUSH (22:38)
[2024-05-15 23:50] VITALS: BP 116/56; PULSE 58; RESP 20; TEMP 36.3; O2SAT 99
[2024-05-15] MEDS: 0.9 % Sodium Chloride Flush 3 ML SYRINGE IVFLUSH (23:50)
[2024-05-16] VITALS (8 sets, daily range): BP systolic 144–192; BP diastolic 54–88; PULSE 55–60; RESP 16–20; TEMP 36.2–36.9; O2SAT 93–99
--- NOTE | 2024-05-16 07:00 | CA_ITS ---
Transthoracic Echocardiogram Patient (Last, First, Middle): Parth Garsia, Gender: Female Date of : 1960 Age: 63 Procedure Date: 05/16/2024 Procedure Type: Transthoracic Echocardiogram Location: [facility] [place] Height: 157. cm Weight: 92.53 kg BSA: 1.92 m2 Heart Rate: bpm BP: 156 / 54 mmHg Car Runner: CASE Referring MD: Binu Garcia MD Symptoms: heart failure Study Quality: Fair ECG Rhythm: Sinus Conclusions: - The left ventricular systolic function is normal. The calculated ejection fraction is 62% by biplane method. - There is severe septal asymmetric hypertrophy. - Evidence suggests grade II (moderate) diastolic dysfunction. - No obvious valvular pathology seen on this study. - Moderate plaque is seen in the ascending aorta. Findings Procedure Information Contrast agent, definity, is being given per protocol without apparent complications. Left Ventricle Normal left ventricular cavity size. There is mildly increased left ventricular wall thickness. The left ventricular systolic function is normal. The calculated ejection fraction is 62% by biplane method. There is no evidence of regional wall motion abnormalities. Evidence suggests grade II (moderate) diastolic dysfunction. There is severe septal asymmetric hypertrophy. Right Ventricle Mildly increased right ventricular cavity size. There is normal right ventricular systolic function. Atria The left atrium is mildly dilated. The right atrium is normal in size. Aortic Valve There is a normal trileaflet aortic valve. There is mild calcification of the aortic valve. There is no aortic valve stenosis. There is no aortic valve regurgitation. Mitral Valve There is mild mitral annular calcification. There is trace mitral valve regurgitation. There is no mitral valve stenosis. Pulmonic Valve The pulmonic valve is likely normal. Tricuspid Valve There is trace tricuspid valve regurgitation. There is no evidence of pulmonary hypertension. Great Vessels The asc aorta and aortic arch are normal in size. Moderate plaque is seen in the ascending aorta. Venous The inferior vena cava is normal in size and collapses greater than 50% with inspiration. Pericardium/Pleural There is no evidence of pericardial effusion. Prior Study Comparison No significant change compared to prior study dated: 11/11/2022. Recommendations, Care & Conclusions No obvious valvular pathology seen on this study. Measurements 2D Linear Measurements IVSd: 1.88 0.6-0.9/0.6-1.0 cm LVIDd: 4.18 3.9-5.3/4.2-5.9 cm LVIDd Index: 2.18 2.4-3.2/2.2-3.1 cm/m2 LVIDs: 2.77 2.0-3.6 cm LVPWd: 1.15 0.7-1.1 cm Ao Root: 2.90 2.1-3.5 cm LA Diam: 3.90 2.7-3.8/3.0-4.0 cm LAIDs Index: 2.03 1.5-2.3 cm/m2 LV Mass: 313.84 67-162/88-224 g LV Mass Index: 163.46 43-95/49-115 g/m2 LVOT Diam: 2.10 3.0+(-)1.3 cm 2D Systolic Function EF 4C: 59.00 >55% EF 2C: 66.70 >55% EF BiP: 62.40 >55% Mitral Valve MV Pk E: 0.91 MV PK A: 0.47 MV Decel Time: 235.00 E/A: 1.90 E'Lateral: 4.30 E'Medial: 3.73 E/E' Med: 24.30 E/E' Lat: 21.10 PHT: 69.00 MVA PHT: 3.19 Decel [place]: 3.87 Aortic Valve AoV Pk Torey: 1.69 AoV Mn Torey: 1.20 AoV VTI: 0.37 AoV Pk Grad: 11.00 Aov Mn Grad: 7.00 SHANTEL Cont.VTI: 2.03 LVOT LVOT Pk Torey: 0.96 LVOT Mn Torey: 0.66 LVOT VTI: 0.22 LVOT Pk Grad: 4.00 LVOT Mn Grad: 2.00 LVOT Diam: 2.10 LVOT Area: 3.46 Diastolic Function MV Pk E: 0.91 MV Pk A: 0.47 E/A: 1.90 E'Medial: 3.73 E/E' Med: 24.30 E' Laterial: 4.30 E/E' Lat: 21.10 Right Ventricle TAPSE (mm): 21.00 Tricuspid Valve TR Pk Torey: 1.97 TR Pk Grad: 16.00 RA Press: 3.00 RVSP: 19.00 Great Vessels Aorta Ao Root-2D: 2.90 2.0-3.7 cm Ao Asc: 3.40 2.1-3.4 cm Ao Arch: 3.20 Pulmonary Valve PV Pk Torey: 1.02 Peak PV Grad: 4.00 Updated in Other Vendor System with Status of Final Elías Chi MD electronically signed on 05/17/2024 10:45:27 AM with status of Final
[2024-05-16 08:08] LABS: Anion Gap 14 (12-20); Blood Urea Nitrogen 26 mg/dL (9-16); Calcium 10.2 mg/dL (8.4-10.2); Carbon Dioxide 28 mmol/L (22-29); Chloride 105 mmol/L (96-108); Creatinine Clr Calc Pharmacy 44.1; Estimated Glomerular Filt Rate 39; Glucose Random 190 mg/dL (60-115); Potassium 4.1 mmol/L (3.3-5.1); Sodium 143 mmol/L (135-145)
[2024-05-16 08:15] LABS: Glucose, Whole Blood 215 mg/dL (60-115)
[2024-05-16] MEDS: 0.9 % Sodium Chloride Flush 3 ML SYRINGE IVFLUSH ×3 (08:17→21:07)
[2024-05-16] MEDS: Furosemide 40 MG/4 ML VIAL IVPUSH (08:17)
[2024-05-16] MEDS: Insulin Lispro 100 UNIT/ML 3 ML VIAL SUBCUT ×4 (08:17→21:06)
--- NOTE | 2024-05-16 10:05 | P.CONCA_ITS ---
History of Present Illness History of Present Illness Date of Service: 05/16/24 Chief complaint: Acute heart failure Narrative: This is a cardiology consultation regarding possible congestive heart failure. Discussed with patient using aerobic per diem interpreter. There is no prior history of coronary disease or myocardial infarction or cardiomyopathy or any other cardiac issues. History of stroke around 15 years ago. Many comorbidities including diabetes, hypertension, dyslipidemia. For the last month or so, she has been having increasing shortness of breath with exertion with some leg swelling. She is also describing orthopnea/PND type symptoms. Then she came to the ER where cardiac BNP was high and EKG had shown a new left bundle-branch block. Hence she is admitted for further care. Currently, she states she feels okay while resting. Denies any prior cardiac history. No symptoms like angina. Review of Systems 2 Review of Systems: Yes all other systems are reviewed and are negative Constitutional: Constitutional: Reports as per HPI and Reports no additional constitutional complaints Eyes: Eyes: Reports as per HPI and Denies no additional eye complaints ENT: Denies system reviewed and no additional complaints, except as documented and Reports as per HPI Cardiovascular: Cardiovascular: Reports as per HPI, Reports no additional cardiovascular complaints, Denies acrocyanosis, Denies cool extremities, Denies chest pain, Denies leg edema, Denies lightheadedness, Denies palpitations and Denies dyspnea Respiratory: Respiratory: Reports as per HPI, Denies no additional respiratory complaints and Denies dyspnea Gastrointestinal: Gastrointestinal: Reports as per HPI and Denies no additional gastrointestinal complaints Genitourinary: Genitourinary: Reports as per HPI Musculoskeletal: Musculoskeletal: Reports no additional musculoskeletal complaints and Reports as per HPI Integumentary/Breasts: Skin/Breast: Reports system reviewed and no additional complaints, except as docu Neurologic: Reports system reviewed and no additional complaints, except as documented and Reports as per HPI Psychiatric: Psychiatric: Reports no additional psychiatric complaints and Reports as per HPI Endocrine: Endocrine: Reports no additional endocrine complaints, Reports as per HPI and Denies palpitations Hematologic/Lymphatic: Hematologic/Lymphatic: Reports no additional hematologic/lymphatic complaints and Reports as per HPI Allergic/Immunologic: Allergic/Immunologic: Reports no additional allergic/immunologic complaints and Reports as per HPI [facility] Past Medical History Medical History HLD (hyperlipidemia) Diabetes mellitus with insulin therapy (Unknown) Hypertension Family History Family History (Updated 05/16/24 @ 10:07 by Elías Chi MD) Mother Diabetes Hypertension Father Hypertension Brother Diabetes Social History Social History Household Members: Family Housing: House Do you presently have visiting nurse or other home services: No Alcohol intake: never Patient Tobacco Use Status: Never used Tobacco e-Cigarette/Vaping Use: Never Used Second Hand Smoke Exposure: No Advance Directives Date on File: 11/16/22 service: No Meds Allergies Allergy/AdvReac Type Severity Reaction Status Date / Time No Known Allergies Allergy Verified 05/15/24 14:21 Active Medications: Current Medications Acetaminophen (Acetaminophen 325 Mg Tablet) 650 mg PO Q6H PRN PRN Reason: Pain, Mild (Pain Scale 1-3), fever or headache Aspirin (Aspirin Enteric Coated 81 Mg Tablet.Dr) 81 mg PO DAILY KAYLEE Atenolol (Atenolol 100 Mg Tablet) 100 mg PO DAILY KAYLEE; Protocol Atorvastatin Calcium (Atorvastatin Calcium 40 Mg Tablet) 40 mg PO BEDTIME KAYLEE Calcium Carbonate (Calcium Carbonate 750 Mg Tab.Chew) 750 mg PO Q4H PRN PRN Reason: Heartburn Enoxaparin Sodium (Enoxaparin Sodium 40 Mg/0.4 Ml Syringe) 40 mg SUBCUT Q24H KAYLEE Last Admin: 05/15/24 19:05 Dose: 40 mg Furosemide (Furosemide 40 Mg/4 Ml Vial) 40 mg IVPUSH DAILY KAYLEE; Protocol Last Admin: 05/16/24 08:17 Dose: 40 mg Glucose (Glucose Gel 15 Gm Gel..Gram.) 15 gm PO Q15M PRN; Protocol PRN Reason: per Hypoglycemia Standing Ord. Dextrose (D10) 250 mls @ 750 mls/hr IV Q15M PRN; Protocol PRN Reason: per Hypoglycemia Standing Ord. Insulin Human Lispro (Insulin Lispro 100 Unit/Ml 3 Ml Vial) 0 [facility]; Protocol Last Admin: 05/16/24 08:17 Dose: 4 unit Magnesium Hydroxide (Milk Of Magnesia 30 Ml Oral.Susp) 30 ml PO DAILY PRN PRN Reason: Constipation Melatonin (Melatonin 3 Mg Tablet) 6 mg PO BEDTIME PRN PRN Reason: Insomnia Ondansetron HCl (Ondansetron Hcl 4 Mg/2 Ml Vial) 4 mg IVPUSH Q8H PRN PRN Reason: Nausea and Vomiting Polyethylene Glycol (Polyethylene Glycol 3350 17 Gm Powd.Pack) 17 gm PO DAILY PRN PRN Reason: Constipation Sodium Chloride (0.9 % Sodium Chloride Flush 3 Ml Syringe) [facility] Last Admin: 05/16/24 08:17 Dose: 3 ml Home Medications ?Medication ?Instructions ?Recorded ?Confirmed ?Last Taken ?Type aspirin 81 mg tablet,delayed 81 mg PO DAILY 11/09/22 05/15/24 05/15/24 History release atenolol 100 mg tablet 100 mg PO DAILY 11/09/22 05/15/24 05/15/24 History insulin human U-100 NPH-regulr 30 unit subcut BID 11/09/22 05/15/24 05/15/24 History 70-30 mix 100 unit/mL subcutaneous susp (Novolin 70/30 U-100 Insulin) metformin 850 mg tablet 850 mg PO TIDWMEAL 05/15/24 05/15/24 05/15/24 History Physical Exam 2 Vital Signs: Vital Signs: Last Vital Signs Temp 97.4 F 05/16/24 08:00 Pulse 58 05/16/24 08:00 Resp 20 05/16/24 08:00 BP 156/54 H 05/16/24 08:17 Pulse Ox 95 05/16/24 08:00 O2 Del Method Room Air 05/16/24 08:00 O2 Flow Rate 1 05/16/24 04:00 BMI result Body Mass Index 37.7 Const: General: comfortable and no acute distress O rientation/consciousness: patient oriented x3 HEENT: Other: Unremarkable Head: Yes normal to inspection Neck: Neck: Yes normal visual inspection Chest: Chest palpation & inspection: normal inspection of the chest Resp: Auscultation: crackles Cardio: Palpation: normal PMI Heart sounds: S1 normal heart sound present, S2 normal heart sound present, no gallops, no murmurs and no rubs GI: Palpation (GI): Soft to palpation Back/Spine/Pelvis: Other: unremarkable Skin: General skin exam: no rashes or lesions noted Neuro: General: patient oriented x3 Extrem: General: Yes normal to inspection Psych: Mental Status: mental status grossly normal Objective Labs and Meds 05/15/24 15:16 05/16/24 06:47 Lab results: Laboratory Results - last 24 hr 05/15/24 05/15/24 05/15/24 15:16 17:00 18:02 WBC 6.3 RBC 3.62 L Hgb 10.5 L Hct 31.5 L MCV 87.0 MCH 29.0 MCHC 33.3 RDW 13.9 Plt Count 209 MPV 11.3 Immature Gran % (Auto) 0.3 Neut % (Auto) 70.0 Lymph % (Auto) 19.0 L [place] % (Auto) 7.8 Eos % (Auto) 2.4 Baso % (Auto) 0.5 Lymph # (Auto) 1.2 [place] # (Auto) 0.5 Eos # (Auto) 0.2 Baso # (Auto) 0.0 Abs Immat Gran (auto) 0.02 Absolute Neuts (auto) 4.4 Absolute Nucleated RBC 0.000 Nucleated RBC % (auto) 0.0 PT 12.8 H INR 1.1 APTT 32.4 Sodium 139 Potassium 4.2 Chloride 104 Carbon Dioxide 27 Anion Gap 12 BUN 28 H Creatinine 1.32 Estim Creat Clear Calc 47.3 Estimated GFR 41 POC Glucose Random Glucose 173 H Calcium 10.2 Magnesium 2.1 Total Bilirubin 0.4 Direct Bilirubin 0.1 AST 35 H ALT 29 Alkaline Phosphatase 84 Troponin I High Sens 11.5 14.5 B-Natriuretic Peptide 1035 H Total Protein 6.7 Albumin 3.6 Influenza Type A (PCR) NEGATIVE Influenza Type B (PCR) NEGATIVE RSV RNA Qual (PCR) NEGATIVE SARS-CoV-2 RNA (RT-PCR) NEGATIVE 05/15/24 05/16/24 05/16/24 21:11 06:47 08:10 WBC RBC Hgb Hct MCV MCH MCHC RDW Plt Count MPV Immature Gran % (Auto) Neut % (Auto) Lymph % (Auto) [place] % (Auto) Eos % (Auto) Baso % (Auto) Lymph # (Auto) [place] # (Auto) Eos # (Auto) Baso # (Auto) Abs Immat Gran (auto) Absolute Neuts (auto) Absolute Nucleated RBC Nucleated RBC % (auto) PT INR APTT Sodium 143 Potassium 4.1 Chloride 105 Carbon Dioxide 28 Anion Gap 14 BUN 26 H Creatinine 1.39 Estim Creat Clear Calc 44.1 Estimated GFR 39 POC Glucose 113 215 H Random Glucose 190 H Calcium 10.2 Magnesium Total Bilirubin Direct Bilirubin AST ALT Alkaline Phosphatase Troponin I High Sens B-Natriuretic Peptide Total Protein Albumin Influenza Type A (PCR) Influenza Type B (PCR) RSV RNA Qual (PCR) SARS-CoV-2 RNA (RT-PCR) ECG Interpretation: EKG with sinus bradycardia, 53/Min; left bundle-branch block. In the previous EKG, no evidence of left bundle-branch block. Imaging Radiologist's impression: Impressions Chest X-Ray 05/15/24 14:45 IMPRESSION: Unremarkable examination. Electronically signed by: Maury Winston MD 05/15/2024 04:23 PM EDT RP Assessment and Plan (1) Acute heart failure: Status: Acute (2) New onset left bundle branch block (LBBB): Status: Acute (3) Hypertensive emergency: Status: Acute Plan Blood pressure has been markedly high, as much as 202/90 mm Hg. Hence not clear if there is preservation of heart failure from uncontrolled hypertension. EKG also has a new left bundle-branch block and that may cause LV dysfunction. High sensitivity troponin is within limits. We will start with an echocardiogram for cardiac function assessment. Blood pressure medications will be need to be accurately reconciled and optimized. Ideally, should be on TERRI inhibitors or ARB. Empiric diuretics. We will follow-up with you. Procedures Date of Service Date of Service: 05/16/24
--- NOTE | 2024-05-16 11:23 | MHC.CM.PN ---
Pt lives with family, she speaks Korean, assessment info obtained from dtr due to language barrier. Pt does not currently have a PCP, her insurance is accepted at [facility], this info given to pt.'s dtr, Felicita, primary contact. HCP is on file, naming other dtr, Eyad. Pt. does not have home health services or DME, family assists her with her personal care. DCP: home with family care. CM to follow for DC needs.
[2024-05-16 12:05] LABS: Glucose, Whole Blood 236 mg/dL (60-115)
[2024-05-16] MEDS: atenoloL 100 MG TABLET PO (12:19)
[2024-05-16] MEDS: guaiFENesin 200 MG/10 ML 10 ML LIQUID PO ×2 (12:19→17:27)
[2024-05-16] MEDS: amLODIPine Besylate 10 MG TABLET PO (12:19)
[2024-05-16 15:09] LABS: Glucose, Whole Blood 207 mg/dL (60-115)
[2024-05-16] MEDS: Enoxaparin Sodium 40 MG/0.4 ML SYRINGE SUBCUT (17:24)
--- NOTE | 2024-05-16 17:34 | HO.PM.IMPN ---
Subjective Subjective Date of Service: 05/16/24 Interval History: chf dm htn Review of Systems sob somewhat improving htn uncontrolled Physical Exam Vital Signs: Vital Signs: Last Vital Signs Temp 97.4 F 05/16/24 08:00 Pulse 55 05/16/24 15:12 Resp 19 05/16/24 15:12 BP 158/70 H 05/16/24 15:12 Pulse Ox 98 05/16/24 15:12 O2 Del Method Room Air 05/16/24 15:12 O2 Flow Rate 1 05/16/24 04:00 BMI result Body Mass Index 37.7 General: AO X 3, no acute distress Resp: Bilateral rales CVS: S1,S2,RRR, 3+pedal edam, +JVD GI: +BS, NT, no distention Skin: No rash Neuro: motor grossly intact Psych: appropriate affect Objective Data Active Medications Acetaminophen (Acetaminophen 325 Mg Tablet) 650 mg PO Q6H PRN PRN Reason: Pain, Mild (Pain Scale 1-3), fever or headache Amlodipine Besylate (Amlodipine Besylate 10 Mg Tablet) 10 mg PO DAILY [facility]; Protocol Last Admin: 05/16/24 12:19 Dose: 10 mg Documented By: CRISTIN Aspirin (Aspirin Enteric Coated 81 Mg Tablet.) 81 mg PO DAILY [facility] Atenolol (Atenolol 100 Mg Tablet) 100 mg PO DAILY [facility]; Protocol Last Admin: 05/16/24 12:19 Dose: 100 mg Documented By: CRISTIN Atorvastatin Calcium (Atorvastatin Calcium 40 Mg Tablet) 40 mg PO BEDTIME [facility] Calcium Carbonate (Calcium Carbonate 750 Mg Tab.Chew) 750 mg PO Q4H PRN PRN Reason: Heartburn Enoxaparin Sodium (Enoxaparin Sodium 40 Mg/0.4 Ml Syringe) 40 mg SUBCUT Q24H KAYLEE Last Admin: 05/16/24 17:24 Dose: 40 mg Documented By: CRISTIN Furosemide (Furosemide 40 Mg/4 Ml Vial) 40 mg IVPUSH DAILY [facility]; Protocol Last Admin: 05/16/24 08:17 Dose: 40 mg Documented By: CRISTIN Glucose (Glucose Gel 15 Gm Gel..Gram.) 15 gm PO Q15M PRN; Protocol PRN Reason: per Hypoglycemia Standing Ord. Guaifenesin (Guaifenesin 200 Mg/10 Ml 10 Ml Liquid) 10 ml PO Q4H PRN PRN Reason: Cough Last Admin: 05/16/24 17:27 Dose: 10 ml Documented By: CRISTIN Dextrose (D10) 250 mls @ 750 mls/hr IV Q15M PRN; Protocol PRN Reason: per Hypoglycemia Standing Ord. Insulin Human Lispro (Insulin Lispro 100 Unit/Ml 3 Ml Vial) [facility]; Protocol Last Admin: 05/16/24 17:21 Dose: 4 unit Documented By: CRISTIN Magnesium Hydroxide (Milk Of Magnesia 30 Ml Oral.Susp) 30 ml PO DAILY PRN PRN Reason: Constipation Melatonin (Melatonin 3 Mg Tablet) 6 mg PO BEDTIME PRN PRN Reason: Insomnia Ondansetron HCl (Ondansetron Hcl 4 Mg/2 Ml Vial) 4 mg IVPUSH Q8H PRN PRN Reason: Nausea and Vomiting Polyethylene Glycol (Polyethylene Glycol 3350 17 Gm Powd.Pack) 17 gm PO DAILY PRN PRN Reason: Constipation Sodium Chloride (0.9 % Sodium Chloride Flush 3 Ml Syringe) [facility] Last Admin: 05/16/24 17:21 Dose: 3 ml Documented By: CRISTIN Labs 05/15/24 15:16 05/16/24 06:47 Labs: Laboratory Results - last 24 hr 05/15/24 05/15/24 05/15/24 15:16 17:00 18:02 APTT 32.4 Anion Gap Estim Creat Clear Calc Estimated GFR POC Glucose Random Glucose Calcium Troponin I High Sens 14.5 Influenza Type A (PCR) NEGATIVE Influenza Type B (PCR) NEGATIVE RSV RNA Qual (PCR) NEGATIVE SARS-CoV-2 RNA (RT-PCR) NEGATIVE 05/15/24 05/16/24 05/16/24 21:11 06:47 08:10 APTT Anion Gap 14 Estim Creat Clear Calc 44.1 Estimated GFR 39 POC Glucose 113 215 H Random Glucose 190 H Calcium 10.2 Troponin I High Sens Influenza Type A (PCR) Influenza Type B (PCR) RSV RNA Qual (PCR) SARS-CoV-2 RNA (RT-PCR) 05/16/24 05/16/24 12:00 15:06 APTT Anion Gap Estim Creat Clear Calc Estimated GFR POC Glucose 236 H 207 H Random Glucose Calcium Troponin I High Sens Influenza Type A (PCR) Influenza Type B (PCR) RSV RNA Qual (PCR) SARS-CoV-2 RNA (RT-PCR) Assessment and Plan (1) Diabetes mellitus with insulin therapy: Status: Acute (2) Hypertensive emergency: Status: Acute (3) New onset left bundle branch block (LBBB): Status: Acute Assessment and Plan: 63/F with DM, HTN, HLD, h/o stroke here with 3-4 weeks of SOB, elvated BNP, PND and Orthopnea--clinical presentation most consistent with acute heart failure. BNP level is 1035. ECG show a LBBB that is new, Acute Heart failure--systolic vs diastolic heart failure vs uncontrolled htn Echo pending -Monitor I/O, weight, -minize salt continue iv lasix . New LBBB normal trop ASA, statin, BBB Echo she may need ischemic work up, but will leave it to cardiology. HTN--BP is presently elevated continue atenolol 100 mg daily added amlodipine 10 mg daily will moniter renal function closley-if stable consider adiing alessandro or arb in am. uncontrolled Diabetes: Hba1c levels continue fs with sliding scale coverage. HLD-Statin Lovenox for dvt prophylaxis. Full code ongoing hospitlisation need for management of acute heart failure that needs IV diuretics and further testing further testing Quality Stroke Does the patient have a stroke diagnosis?: No VTE Prior VTE?: No VTE Risk Level:: Medical - moderate - high VTE Device Contraindication: Treatment Not Indicated VTE Drug Contraindication: N/A - Med Ordered
[2024-05-16 18:24] LABS: Estimated Average Glucose 235 mg/dL; Hemoglobin A1C 258.8899 umol/L; Hemoglobin A1c % 9.8 % (<6.0); Total Hemoglobin (HGBA1C) 3103.6723 umol/L
[2024-05-16 19:52] LABS: Glucose, Whole Blood 203 mg/dL (60-115)
[2024-05-16] MEDS: Acetaminophen 325 MG TABLET 650 MG PO (21:06)
[2024-05-16] MEDS: Atorvastatin Calcium 40 MG TABLET PO (21:06)
[2024-05-16] MEDS: Melatonin 3 MG TABLET 6 MG PO (21:06)
[2024-05-17] VITALS (8 sets, daily range): BP systolic 138–185; BP diastolic 65–86; PULSE 55–100; RESP 15–20; TEMP 36.1–36.9; O2SAT 95–97; BMI 37.0
--- NOTE | 2024-05-17 | CA_ITS ---
Acquisition Time: 2024-05-19 09:21:09 Total Exercise Time: 00:02:00 Test Indications: SOB, ARRHYTHMIA Medications: Protocol: LEXISCAN Max HR: 078 BPM 49% of Pred: 159 BPM Max BP: 188/074 mmHG Max Work Load: 1.0 METS Pharmacological stress test with Lexiscan injection, while sitting and slowly kicking her legs, without anginal symptoms, without arrythmia, with normotensive response to injection, with nondiagnostic EKG for ischemia. In recovery she reported lightheadedness that was treated with Aminophylline 75mg IVP to reverse Lexiscan with resolution of symptoms. Nuclear images pending. Test reviewed with Dr Chi Referred By: Elías Chi Overread By: SOLOMON RUDD
[2024-05-17 06:31] LABS: Anion Gap 13 (12-20); Blood Urea Nitrogen 37 mg/dL (9-16); Calcium 10.1 mg/dL (8.4-10.2); Carbon Dioxide 27 mmol/L (22-29); Chloride 103 mmol/L (96-108); Creatinine Clr Calc Pharmacy 41.6; Estimated Glomerular Filt Rate 36; Glucose Random 214 mg/dL (60-115); Potassium 4.1 mmol/L (3.3-5.1); Sodium 139 mmol/L (135-145)
[2024-05-17 06:39] LABS: B Type Natriuretic Peptide 759 pg/mL (<100)
[2024-05-17 07:17] LABS: Glucose, Whole Blood 205 mg/dL (60-115)
[2024-05-17 07:32] LABS: Anion Gap 15 (12-20); Blood Urea Nitrogen 36 mg/dL (9-16); Calcium 10.1 mg/dL (8.4-10.2); Carbon Dioxide 27 mmol/L (22-29); Chloride 102 mmol/L (96-108); Creatinine Clr Calc Pharmacy 43.1; Estimated Glomerular Filt Rate 38; Glucose Random 221 mg/dL (60-115); Potassium 3.8 mmol/L (3.3-5.1); Sodium 140 mmol/L (135-145)
[2024-05-17] MEDS: Aspirin Enteric Coated 81 MG TABLET.DR PO (07:56)
[2024-05-17] MEDS: Acetaminophen 325 MG TABLET 650 MG PO ×2 (08:00→21:54)
[2024-05-17] MEDS: amLODIPine Besylate 10 MG TABLET PO (08:00)
[2024-05-17] MEDS: atenoloL 100 MG TABLET PO (08:01)
[2024-05-17] MEDS: 0.9 % Sodium Chloride Flush 3 ML SYRINGE IVFLUSH ×2 (08:01→11:17)
[2024-05-17] MEDS: guaiFENesin 200 MG/10 ML 10 ML LIQUID PO (08:01)
[2024-05-17] MEDS: Furosemide 40 MG/4 ML VIAL IVPUSH (08:02)
[2024-05-17] MEDS: Insulin Lispro 100 UNIT/ML 3 ML VIAL SUBCUT ×4 (08:02→21:53)
--- NOTE | 2024-05-17 09:52 | PM.PNCARD ---
Subjective Subjective Date of Service: 05/17/24 Interval history: Discussed with patient using aerobic translator/interpreter. She states that her breathing is slightly better. Review of Systems Review of Systems Yes all other systems are reviewed and are negative Constitutional: Reports as per HPI and Reports no additional constitutional complaints Eyes: Reports as per HPI and Denies no additional eye complaints Denies system reviewed and no additional complaints, except as documented and Reports as per HPI Cardiovascular: Reports as per HPI, Reports no additional cardiovascular complaints, Denies acrocyanosis, Denies cool extremities, Denies chest pain, Denies leg edema, Denies lightheadedness, Denies palpitations and Reports dyspnea Respiratory: Reports as per HPI, Denies no additional respiratory complaints and Reports dyspnea Gastrointestinal: Reports as per HPI and Denies no additional gastrointestinal complaints Genitourinary: Reports as per HPI Musculoskeletal: Reports no additional musculoskeletal complaints and Reports as per HPI Skin/Breast: Reports system reviewed and no additional complaints, except as docu Reports system reviewed and no additional complaints, except as documented and Reports as per HPI Psychiatric: Reports no additional psychiatric complaints and Reports as per HPI Endocrine: Reports no additional endocrine complaints, Reports as per HPI and Denies palpitations Hematologic/Lymphatic: Reports no additional hematologic/lymphatic complaints and Reports as per HPI Allergic/Immunologic: Reports no additional allergic/immunologic complaints and Reports as per HPI Physical Exam Vital Signs: Last Vital Signs Temp 97.7 F 05/17/24 08:00 Pulse 63 05/17/24 08:01 Resp 16 05/17/24 08:00 BP 159/69 H 05/17/24 08:02 Pulse Ox 96 05/17/24 08:00 O2 Del Method Room Air 05/17/24 08:00 O2 Flow Rate 1 05/16/24 04:00 BMI result Body Mass Index 37.0 Const General: comfortable and no acute distress Orientation/consciousness: patient oriented x3 HEENT Other: Unremarkable Head: Yes normal to inspection Neck Neck: Yes normal visual inspection Chest Chest palpation & inspection: normal inspection of the chest Resp Auscultation: clear to auscultation bilaterally Cardio Palpation: normal PMI Heart sounds: S1 normal heart sound present, S2 normal heart sound present, no gallops, no murmurs and no rubs GI Palpation (GI): Soft to palpation Back/Spine/Pelvis Other: unremarkable Skin General skin exam: no rashes or lesions noted Neuro General: patient oriented x3 Extrem General: Yes normal to inspection Psych Mental Status: mental status grossly normal Objective Labs and Meds 05/15/24 15:16 05/17/24 06:54 Lab results: Laboratory Results - last 24 hr 05/16/24 05/16/24 05/16/24 12:00 15:06 17:45 Sodium Potassium Chloride Carbon Dioxide Anion Gap BUN Creatinine Estim Creat Clear Calc Estimated GFR POC Glucose 236 H 207 H Random Glucose Estimat Average Glucose 235 Hemoglobin A1c % 9.8 H Calcium B-Natriuretic Peptide 05/16/24 05/17/24 05/17/24 19:40 05:46 06:54 Sodium 139 140 Potassium 4.1 3.8 Chloride 103 102 Carbon Dioxide 27 27 Anion Gap 13 15 BUN 37 H 36 H Creatinine 1.46 H 1.41 H Estim Creat Clear Calc 41.6 43.1 Estimated GFR 36 38 POC Glucose 203 H Random Glucose 214 H 221 H Estimat Average Glucose Hemoglobin A1c % Calcium 10.1 10.1 B-Natriuretic Peptide 759 H 05/17/24 07:11 Sodium Potassium Chloride Carbon Dioxide Anion Gap BUN Creatinine Estim Creat Clear Calc Estimated GFR POC Glucose 205 H Random Glucose Estimat Average Glucose Hemoglobin A1c % Calcium B-Natriuretic Peptide Progress Note: A&P Assessment and plan (1) Acute heart failure: Status: Acute (2) New onset left bundle branch block (LBBB): Status: Acute (3) Hypertensive emergency: Status: Acute Plan EKG has a new left bundle-branch block. In the echocardiogram, preserved LVEF but there is diastolic dysfunction. Overall, uncontrolled hypertension, diastolic heart failure. The description of orthopnea could be related to untreated sleep apnea. I discussed about her social issues in general and she states she has from [place] but has family here and hence she is visiting. She does not have a regular physician and takes medications only as necessary it seems. Also checked with our disbursing officer and it seems we cannot offer outpatient care as there is no proper insurance. Hence difficult scenario. Amlodipine has been added for blood pressure management. Beyond that, ideally TERRI inhibitors or ARB as long as renal function can be appropriately followed up. Eventually, ischemia workup but again the limiting issue will be lack of insurance. If able, pursue that in her own country. Discussed with hospitalist, Dr. Womack. Time Spent With Patient Time: Total time managing care of this patient today ____ minutes. Progress Note: Quality Stroke Does the patient have a stroke diagnosis?: No Procedures Date of Service Date of Service: 05/17/24
[2024-05-17 11:06] LABS: Glucose, Whole Blood 273 mg/dL (60-115)
--- NOTE | 2024-05-17 12:37 | P.CDIM_ITS ---
PROVIDER RESPONSE TEXT: To clarify, the appropriate diagnosis supported by the clinical indicators: Obesity Due to excess calories QUERY TEXT: PHYSICIAN'S DOCUMENTATION REQUEST Date of Query: 05/17/2024 09:17 AM EDT Patient Name: Parth Garsia Admit Date: 05/15/2024 Dear Jason Macario MD, A review of the medical record indicates additional documentation may be needed. Please review below and update the documentation accordingly. Clinical Indicators: Nursing assessment Height and Weight: BMI 37 Obese class II 91.2kg If possible, please provide an associated diagnosis related to the abnormal BMI, such as: Overweight Obesity Due to excess calories Obesity Drug induced Obesity Due to other cause Specify the other cause Severe or Morbid Obesity With alveolar hypoventilation Severe or Morbid Obesity Without alveolar hypoventilation Other (explain) Clinically unable to determine (explain) Thank you, Sarah Callahan, CCS, CDIS Use of terms such as suspected, likely, concern for, or probable (associated with a specific diagnosi s that is being evaluated, monitored, or treated as if it exists) are acceptable and can be coded in the inpatient se tting, when documented at the time of discharge. Please use your independent medical judgment in providing your response. THIS QUERY IS PART OF THE PERMANENT MEDICAL RECORD
--- NOTE | 2024-05-17 13:01 | MHC.CM.PN ---
Per rounds, pt. is not ready for DC, she will need further medical and cardiac work up and treatment. Anticipate DC 05/18/24. Pt.s HCP informed that [facility] accepts pt.'s insurance and [facility] cardiology office contacted today by ROSAL[facility] and was informed that they do accept pt.'s ins for outpt care.
--- NOTE | 2024-05-17 13:40 | HO.PM.IMPN ---
Subjective Subjective Date of Service: 05/17/24 Interval History: seen and evaluated feels better overall still dyspniec with short distance no other overnight events Review of Systems Review of Systems: Yes all other systems are reviewed and are negative Physical Exam Vital Signs: Vital Signs: Last Vital Signs Temp 98.4 F 05/17/24 11:20 Pulse 55 05/17/24 11:20 Resp 20 05/17/24 11:20 BP 147/66 H 05/17/24 11:20 Pulse Ox 96 05/17/24 11:20 O2 Del Method Room Air 05/17/24 11:20 O2 Flow Rate 1 05/16/24 04:00 BMI result Body Mass Index 37.0 Const: Other: General: AO X 3, no acute distress Resp: Bilateral basal rales CVS: S1,S2,RRR, 1+pedal edam, +JVD GI: +BS, NT, no distention Skin: No rash Neuro: motor grossly intact Psych: appropriate affect Objective Data Active Medications Acetaminophen (Acetaminophen 325 Mg Tablet) 650 mg PO Q6H PRN PRN Reason: Pain, Mild (Pain Scale 1-3), fever or headache Last Admin: 05/17/24 08:00 Dose: 650 mg Documented By: POLI Amlodipine Besylate (Amlodipine Besylate 10 Mg Tablet) 10 mg PO DAILY [facility]; Protocol Last Admin: 05/17/24 08:00 Dose: 10 mg Documented By: POLI Aspirin (Aspirin Enteric Coated 81 Mg Tablet.) 81 mg PO DAILY [facility] Last Admin: 05/17/24 07:56 Dose: 81 mg Documented By: POLI Atenolol (Atenolol 100 Mg Tablet) 100 mg PO DAILY [facility]; Protocol Last Admin: 05/17/24 08:01 Dose: 100 mg Documented By: POLI Atorvastatin Calcium (Atorvastatin Calcium 40 Mg Tablet) 40 mg PO BEDTIME [facility] Last Admin: 05/16/24 21:06 Dose: 40 mg Documented By: MADHAV Calcium Carbonate (Calcium Carbonate 750 Mg Tab.Chew) 750 mg PO Q4H PRN PRN Reason: Heartburn Enoxaparin Sodium (Enoxaparin Sodium 40 Mg/0.4 Ml Syringe) 40 mg SUBCUT Q24H [facility] Last Admin: 05/16/24 17:24 Dose: 40 mg Documented By: CRISTIN Glucose (Glucose Gel 15 Gm Gel..Gram.) 15 gm PO Q15M PRN; Protocol PRN Reason: per Hypoglycemia Standing Ord. Guaifenesin (Guaifenesin 200 Mg/10 Ml 10 Ml Liquid) 10 ml PO Q4H PRN PRN Reason: Cough Last Admin: 05/17/24 08:01 Dose: 10 ml Documented By: POLI Dextrose (D10) 250 mls @ 750 mls/hr IV Q15M PRN; Protocol PRN Reason: per Hypoglycemia Standing Ord. Insulin Human Lispro (Insulin Lispro 100 Unit/Ml 3 Ml Vial) 0 unit SUBCUT [facility]; Protocol Last Admin: 05/17/24 11:17 Dose: 6 unit Documented By: POLI Magnesium Hydroxide (Milk Of Magnesia 30 Ml Oral.Susp) 30 ml PO DAILY PRN PRN Reason: Constipation Melatonin (Melatonin 3 Mg Tablet) 6 mg PO BEDTIME PRN PRN Reason: Insomnia Last Admin: 05/16/24 21:06 Dose: 6 mg Documented By: MADHAV Ondansetron HCl (Ondansetron Hcl 4 Mg/2 Ml Vial) 4 mg IVPUSH Q8H PRN PRN Reason: Nausea and Vomiting Polyethylene Glycol (Polyethylene Glycol 3350 17 Gm Powd.Pack) 17 gm PO DAILY PRN PRN Reason: Constipation Sodium Chloride (0.9 % Sodium Chloride Flush 3 Ml Syringe) 3 ml [facility] Last Admin: 05/17/24 11:17 Dose: 3 ml Documented By: POLI Labs 05/15/24 15:16 05/17/24 06:54 Labs: Laboratory Results - last 24 hr 05/16/24 05/16/24 05/16/24 15:06 17:45 19:40 Anion Gap Estim Creat Clear Calc Estimated GFR POC Glucose 207 H 203 H Random Glucose Estimat Average Glucose 235 Hemoglobin A1c % 9.8 H Calcium B-Natriuretic Peptide 05/17/24 05/17/24 05/17/24 05:46 06:54 07:11 Anion Gap 13 15 Estim Creat Clear Calc 41.6 43.1 Estimated GFR 36 38 POC Glucose 205 H Random Glucose 214 H 221 H Estimat Average Glucose Hemoglobin A1c % Calcium 10.1 10.1 B-Natriuretic Peptide 759 H 05/17/24 10:59 Anion Gap Estim Creat Clear Calc Estimated GFR POC Glucose 273 H Random Glucose Estimat Average Glucose Hemoglobin A1c % Calcium B-Natriuretic Peptide Assessment and Plan (1) New onset left bundle branch block (LBBB): Status: Acute Assessment and Plan: 63/F with DM, HTN, HLD, h/o stroke here with 3-4 weeks of SOB, elvated BNP, PND and Orthopnea--clinical presentation most consistent with acute heart failure. Acute Heart failure, diastolic heart failure 2/2 uncontrolled htn Echo showing LVH and diastolic dysfunction with normal EF. BNP elevated Monitor I/O, weight continue iv lasix Cardiology following New LBBB normal trop ASA, statin, BB Cardiology to do stress testing while inpatient HTN, uncontrolled Start Losartan 25 mg Decrease Atenolol to 50 mg daily Continue amlodipine 10 mg daily will moniter renal function parker uncontrolled Diabetes: Hba1c 9.8 sliding scale coverage. To start Glipizide upon discharge HLD-Statin Lovenox for dvt prophylaxis. Full code ongoing hospitlisation need for management of acute heart failure that needs IV diuretics and further testing further testing (2) Hypertensive emergency: Status: Acute (3) Acute heart failure: Status: Acute (4) Diabetes mellitus with insulin therapy: Status: Acute Quality Stroke Does the patient have a stroke diagnosis?: No VTE Prior VTE?: No VTE Risk Level:: Medical - moderate - high VTE Device Contraindication: Treatment Not Indicated VTE Drug Contraindication: N/A - Med Ordered
[2024-05-17] MEDS: Losartan Potassium 25 MG TABLET PO (14:12)
[2024-05-17 16:18] LABS: Glucose, Whole Blood 227 mg/dL (60-115)
[2024-05-17] MEDS: Enoxaparin Sodium 40 MG/0.4 ML SYRINGE SUBCUT (16:35)
[2024-05-17 20:25] LABS: Glucose, Whole Blood 254 mg/dL (60-115)
[2024-05-17] MEDS: Atorvastatin Calcium 40 MG TABLET PO (21:54)
[2024-05-18] VITALS (9 sets, daily range): BP systolic 106–185; BP diastolic 52–80; PULSE 52–61; RESP 18–20; TEMP 36.1–36.7; O2SAT 93–99
[2024-05-18 07:02] LABS: Anion Gap 14 (12-20); Blood Urea Nitrogen 39 mg/dL (9-16); Calcium 10.2 mg/dL (8.4-10.2); Carbon Dioxide 28 mmol/L (22-29); Chloride 102 mmol/L (96-108); Estimated Glomerular Filt Rate 32; Glucose Random 302 mg/dL (60-115); Potassium 4.3 mmol/L (3.3-5.1); Sodium 140 mmol/L (135-145)
[2024-05-18 07:04] LABS: B Type Natriuretic Peptide 521 pg/mL (<100)
[2024-05-18 07:17] LABS: Glucose, Whole Blood 273 mg/dL (60-115)
[2024-05-18] MEDS: Furosemide 40 MG TABLET PO (09:03)
[2024-05-18] MEDS: Aspirin Enteric Coated 81 MG TABLET.DR PO (09:03)
[2024-05-18] MEDS: atenoloL 50 MG TABLET PO (09:04)
[2024-05-18] MEDS: Insulin Glargine,Hum.rec.anlog 100 UNIT/ML 10 ML VIAL 10 UNIT SUBCUT (09:04)
[2024-05-18] MEDS: Insulin Lispro 100 UNIT/ML 3 ML VIAL SUBCUT ×5 (09:04→21:35)
[2024-05-18] MEDS: 0.9 % Sodium Chloride Flush 3 ML SYRINGE IVFLUSH ×3 (09:06→21:35)
--- NOTE | 2024-05-18 10:36 | P.PNIM_ITS ---
Subjective Subjective Date of Service: 05/18/24 Interval History: seen and evaluated feels better overall less dyspniec with short distance Cr increased to 1.6 no other overnight events Review of Systems Review of Systems: Yes all other systems are reviewed and are negative Physical Exam 2 Vital Signs: Vital Signs: Last Vital Signs Temp 97.2 F 05/18/24 08:00 Pulse 55 05/18/24 08:00 Resp 20 05/18/24 08:00 BP 147/67 H 05/18/24 08:00 Pulse Ox 94 05/18/24 08:00 O2 Del Method Room Air 05/18/24 08:00 O2 Flow Rate 1 05/16/24 04:00 BMI result Body Mass Index 37.0 Const: Other: General: AO X 3, no acute distress Resp: Bilateral basal rales CVS: S1,S2,RRR, trace pedal edam, +JVD GI: +BS, NT, no distention Skin: No rash Neuro: motor grossly intact Psych: appropriate affect Objective Data Active Medications Acetaminophen (Acetaminophen 325 Mg Tablet) 650 mg PO Q6H PRN PRN Reason: Pain, Mild (Pain Scale 1-3), fever or headache Last Admin: 05/17/24 21:54 Dose: 650 mg Documented By: MADHAV Amlodipine Besylate (Amlodipine Besylate 5 Mg Tablet) 5 mg PO BEDTIME [facility]; Protocol Aspirin (Aspirin Enteric Coated 81 Mg Tablet.) 81 mg PO DAILY [facility] Last Admin: 05/18/24 09:03 Dose: 81 mg Documented By: AMAURY Atenolol (Atenolol 50 Mg Tablet) 50 mg PO DAILY [facility]; Protocol Last Admin: 05/18/24 09:04 Dose: 50 mg Documented By: AMAURY Atorvastatin Calcium (Atorvastatin Calcium 40 Mg Tablet) 40 mg PO BEDTIME [facility] Last Admin: 05/17/24 21:54 Dose: 40 mg Documented By: MADHAV Calcium Carbonate (Calcium Carbonate 750 Mg Tab.Chew) 750 mg PO Q4H PRN PRN Reason: Heartburn Enoxaparin Sodium (Enoxaparin Sodium 40 Mg/0.4 Ml Syringe) 40 mg SUBCUT Q24H [facility] Last Admin: 05/17/24 16:35 Dose: 40 mg Documented By: POLI Furosemide (Furosemide 40 Mg Tablet) 40 mg PO DAILY [facility]; Protocol Last Admin: 05/18/24 09:03 Dose: 40 mg Documented By: AMAURY Glucose (Glucose Gel 15 Gm Gel..Gram.) 15 gm PO Q15M PRN; Protocol PRN Reason: per Hypoglycemia Standing Ord. Guaifenesin (Guaifenesin 200 Mg/10 Ml 10 Ml Liquid) 10 ml PO Q4H PRN PRN Reason: Cough Last Admin: 05/17/24 08:01 Dose: 10 ml Documented By: POLI Dextrose (D10) 250 mls @ 750 mls/hr IV Q15M PRN; Protocol PRN Reason: per Hypoglycemia Standing Ord. Insulin Glargine (Insulin Glargine,Hum.Rec.Anlog 100 Unit/Ml 10 Ml Vial) 10 unit SUBCUT DAILY [facility] Last Admin: 05/18/24 09:04 Dose: 10 unit Documented By: AMAURY Insulin Human Lispro (Insulin Lispro 100 Unit/Ml 3 Ml Vial) 0 unit SUBCUT QIDAS [facility]; Protocol Last Admin: 05/18/24 09:04 Dose: 6 unit Documented By: AMAURY Losartan Potassium (Losartan Potassium 25 Mg Tablet) 25 mg PO DAILY [facility]; Protocol Last Admin: 05/17/24 14:12 Dose: 25 mg Documented By: POLI Magnesium Hydroxide (Milk Of Magnesia 30 Ml Oral.Susp) 30 ml PO DAILY PRN PRN Reason: Constipation Melatonin (Melatonin 3 Mg Tablet) 6 mg PO BEDTIME PRN PRN Reason: Insomnia Last Admin: 05/16/24 21:06 Dose: 6 mg Documented By: MADHAV Ondansetron HCl (Ondansetron Hcl 4 Mg/2 Ml Vial) 4 mg IVPUSH Q8H PRN PRN Reason: Nausea and Vomiting Polyethylene Glycol (Polyethylene Glycol 3350 17 Gm Powd.Pack) 17 gm PO DAILY PRN PRN Reason: Constipation Sodium Chloride (0.9 % Sodium Chloride Flush 3 Ml Syringe) 3 ml IVFLUSH [facility] Last Admin: 05/18/24 09:06 Dose: 3 ml Documented By: AMAURY Labs 05/15/24 15:16 05/18/24 06:26 Labs: Laboratory Results - last 24 hr 05/17/24 05/17/24 05/17/24 10:59 16:13 20:21 Anion Gap Estim Creat Clear Calc Estimated GFR POC Glucose 273 H 227 H 254 H Random Glucose Calcium B-Natriuretic Peptide 05/18/24 05/18/24 05/18/24 06:26 06:26 06:26 Anion Gap 14 Cancelled Estim Creat Clear Calc 37.0 Cancelled Estimated GFR 32 POC Glucose Random Glucose Calcium B-Natriuretic Peptide 05/18/24 05/18/24 05/18/24 06:26 06:26 06:26 Anion Gap Estim Creat Clear Calc Estimated GFR Cancelled POC Glucose Random Glucose 302 H Cancelled Calcium 10.2 Cancelled B-Natriuretic Peptide 521 H 05/18/24 07:07 Anion Gap Estim Creat Clear Calc Estimated GFR POC Glucose 273 H Random Glucose Calcium B-Natriuretic Peptide Assessment and Plan (1) New onset left bundle branch block (LBBB): Status: Acute Assessment and Plan: 63/F with DM, HTN, HLD, h/o stroke here with 3-4 weeks of SOB, elvated BNP, PND and Orthopnea--clinical presentation most consistent with acute heart failure. Acute Heart failure, diastolic heart failure 2/2 uncontrolled htn Improving Echo showing LVH and diastolic dysfunction with normal EF BNP elevated still at 500+ Monitor I/O, weight Change to PO lasix Cardiology following New LBBB normal trop ASA, statin, BB Cardiology to do stress testing while inpatient, the machine is broken and we are waiting for it to get fixed HTN, uncontrolled Hold Losartan 25 mg for worsening CKD Decrease Atenolol to 50 mg daily for bradycardia Continue amlodipine 5 mg daily will moniter renal function closley Worsening CKD3 Cr to 1.6 from lasix and Losartan Hold Losartan today Monitor Cr uncontrolled Diabetes with hyperglycemia Hba1c 9.8 sliding scale coverage. To start Glipizide upon discharge HLD Statin Lovenox for dvt prophylaxis. Full code ongoing hospitlisation need for management of acute heart failure that needs diuretics and further testing for new LBBB with stress testing (2) Hypertensive emergency: Status: Acute (3) Acute heart failure: Status: Acute (4) Diabetes mellitus with insulin therapy: Status: Acute Quality Stroke Does the patient have a stroke diagnosis?: No VTE Prior VTE?: No VTE Risk Level:: Medical - moderate - high VTE Device Contraindication: Treatment Not Indicated VTE Drug Contraindication: N/A - Med Ordered
[2024-05-18 11:33] LABS: Glucose, Whole Blood 451 mg/dL (60-115)
[2024-05-18] MEDS: Acetaminophen 325 MG TABLET 650 MG PO (12:05)
[2024-05-18] MEDS: metFORMIN HCl 850 MG TABLET PO ×2 (12:05→16:53)
[2024-05-18] MEDS: Insulin Glargine,Hum.rec.anlog 100 UNIT/ML 10 ML VIAL 8 UNIT SUBCUT (12:28)
[2024-05-18] MEDS: amLODIPine Besylate 5 MG TABLET PO ×2 (14:32→21:34)
[2024-05-18 16:17] LABS: Glucose, Whole Blood 154 mg/dL (60-115)
[2024-05-18] MEDS: Enoxaparin Sodium 40 MG/0.4 ML SYRINGE SUBCUT (16:53)
[2024-05-18 20:39] LABS: Glucose, Whole Blood 161 mg/dL (60-115)
[2024-05-18] MEDS: Atorvastatin Calcium 40 MG TABLET PO (21:34)
[2024-05-19 03:21] VITALS: BP 105/61; PULSE 61; RESP 20; TEMP 36.7; O2SAT 98
[2024-05-19 06:58] LABS: Anion Gap 15 (12-20); Blood Urea Nitrogen 34 mg/dL (9-16); Calcium 10.7 mg/dL (8.4-10.2); Carbon Dioxide 28 mmol/L (22-29); Chloride 103 mmol/L (96-108); Estimated Glomerular Filt Rate 35; Glucose Random 261 mg/dL (60-115); Potassium 4.3 mmol/L (3.3-5.1); Sodium 142 mmol/L (135-145)
[2024-05-19 07:08] LABS: B Type Natriuretic Peptide 530 pg/mL (<100)
[2024-05-19 07:25] LABS: Glucose, Whole Blood 289 mg/dL (60-115)
[2024-05-19 08:00] VITALS: BP 182/76; PULSE 64; RESP 18; TEMP 36.6; O2SAT 94
[2024-05-19] MEDS: Aspirin Enteric Coated 81 MG TABLET.DR PO (08:32)
[2024-05-19] MEDS: metFORMIN HCl 850 MG TABLET PO (08:32)
[2024-05-19] MEDS: atenoloL 50 MG TABLET PO (08:32)
[2024-05-19] MEDS: Insulin Lispro 100 UNIT/ML 3 ML VIAL SUBCUT ×2 (08:33→11:37)
[2024-05-19] MEDS: amLODIPine Besylate 5 MG TABLET PO ×2 (08:33→12:22)
[2024-05-19] MEDS: Insulin Glargine,Hum.rec.anlog 100 UNIT/ML 10 ML VIAL 20 UNIT SUBCUT (08:33)
[2024-05-19] MEDS: 0.9 % Sodium Chloride Flush 3 ML SYRINGE IVFLUSH (08:34)
--- NOTE | 2024-05-19 09:38 | PM.CNNEP ---
History of Present Illness Reason for Consult Consult date: 05/19/24 Chief Complaint Chief complaint: Acute heart failure History of Present Illness Narrative: 63 y/o female with a MH of CKD3, uncontrolled HTN, HLD, uncontrolled DMII, hx of stroke. She states she does not drink alcohol, non-smoker. Pt's primary language is Mongolian (video director of residence life used). She is from [place] and came to the [place] 6 months ago to be closer to her family; she has three children here living locally and lives with them in [place]. she came to the hospital on 05/15 with 3-4 weeks of dyspnea, orthopnea, PND. echo showing LVH and diastolic dysfunction with normal EF; treated with diuretics and has been improving. she continues to have uncontrolled HTN, losartan (25mg PO daily) held due worsening renal function she continues to take atenolol 50mg, amlodipine 5mg daily and furosemide 40mg PO daily Nephrology consulted for CKD3, uncontrolled HTN and to establish care outpatient. Pt does not have a PCP but this is being arranged. Creatinine trend: 11/09/22 1.50 11/10/22 1.41 11/11/22 1.16 07/21/23 1.39 07/28/23 1.18 04/05/24 1.42 05/15/24 1.32 05/16/24 1.39 05/17/24 1.46 1.41 05/18/24 1.64 05/19/24 1.52 GFR ranges from 32-47 since over last 9 months; currently 35. 9 urine dip negative for RBCs, trace protein, +WBCs (+ nitrites, culture shows contamination/mixed bacterial kim). A1c is 9.8% calcium slightly elevated at 10.7; other electrolytes within normal limits. Patient states she thinks she has had high blood pressure for only a few months now. She is uncertain how long she has had diabetes. She states she takes NSAIDs frequently at home- states takes motrin and ibuprofen together, multiple doses daily as she has a disc injury in her back that causes significant pain that is not controlled well. She denies know family/personal history of renal disease She denies urinary symptoms she states her swelling and breathing have greatly improved since admission and feel normal now. She does not have a PCP but this is being arranged prior to her discharge. Review of Systems Constitutional: Denies fatigue, Denies headache(s) and Denies weakness Denies dizziness and Denies headache(s) Cardiovascular: Denies chest pain, Denies leg edema, Denies lightheadedness and Denies dyspnea Respiratory: Denies cough and Denies dyspnea Gastrointestinal: Denies abdominal pain and Reports constipation (reports had been constipated, this resolved ) Genitourinary: Denies hematuria, Denies difficulty voiding, Denies dysuria, Denies pelvic pain, Denies urinary incontinence and Denies urinary urgency Musculoskeletal: Reports back pain and Reports arthralgias (reports chronic back pain disc issue, no other joint pain) Skin/Breast: Denies rash Denies dizziness, Denies headache(s) and Denies weakness Endocrine: Denies fatigue PMFSH Past Medical History Medical History (Updated 05/19/24 @ 10:06 by Senait Vaughan, DNP, [employer] RECORDER-BC) Diabetes mellitus with insulin therapy (Unknown) HLD (hyperlipidemia) Hypertension Family History Family History (Updated 05/16/24 @ 10:07 by Elías Chi MD) Mother Diabetes Hypertension Father Hypertension Brother Diabetes Social History Social History Household Members: Family Housing: House Do you presently have visiting nurse or other home services: No Alcohol intake: never Patient Tobacco Use Status: Never used Tobacco e-Cigarette/Vaping Use: Never Used Second Hand Smoke Exposure: No Advance Directives Date on File: 11/16/22 service: No Meds Allergies Allergy/AdvReac Type Severity Reaction Status Date / Time No Known Allergies Allergy Verified 05/15/24 14:21 Active Medications: Current Medications Acetaminophen (Acetaminophen 325 Mg Tablet) 650 mg PO Q6H PRN PRN Reason: Pain, Mild (Pain Scale 1-3), fever or headache Last Admin: 05/18/24 12:05 Dose: 650 mg Amlodipine Besylate (Amlodipine Besylate 5 Mg Tablet) 5 mg PO DAILY [facility]; Protocol Last Admin: 05/19/24 08:33 Dose: 5 mg Aspirin (Aspirin Enteric Coated 81 Mg Tablet.) 81 mg PO DAILY [facility] Last Admin: 05/19/24 08:32 Dose: 81 mg Atenolol (Atenolol 50 Mg Tablet) 50 mg PO DAILY [facility]; Protocol Last Admin: 05/19/24 08:32 Dose: 50 mg Atorvastatin Calcium (Atorvastatin Calcium 40 Mg Tablet) 40 mg PO BEDTIME [facility] Last Admin: 05/18/24 21:34 Dose: 40 mg Calcium Carbonate (Calcium Carbonate 750 Mg Tab.Chew) 750 mg PO Q4H PRN PRN Reason: Heartburn Enoxaparin Sodium (Enoxaparin Sodium 40 Mg/0.4 Ml Syringe) 40 mg SUBCUT Q24H [facility] Last Admin: 05/18/24 16:53 Dose: 40 mg Furosemide (Furosemide 40 Mg Tablet) 40 mg PO DAILY [facility]; Protocol Last Admin: 05/18/24 09:03 Dose: 40 mg Furosemide (Furosemide 40 Mg/4 Ml Vial) 40 mg IVPUSH DAILY [facility]; Protocol Glucose (Glucose Gel 15 Gm Gel..Gram.) 15 gm PO Q15M PRN; Protocol PRN Reason: per Hypoglycemia Standing Ord. Guaifenesin (Guaifenesin 200 Mg/10 Ml 10 Ml Liquid) 10 ml PO Q4H PRN PRN Reason: Cough Last Admin: 05/17/24 08:01 Dose: 10 ml Dextrose (D10) 250 mls @ 750 mls/hr IV Q15M PRN; Protocol PRN Reason: per Hypoglycemia Standing Ord. Insulin Glargine (Insulin Glargine,Hum.Rec.Anlog 100 Unit/Ml 10 Ml Vial) 20 unit SUBCUT DAILY [facility] Last Admin: 05/19/24 08:33 Dose: 20 unit Insulin Human Lispro (Insulin Lispro 100 Unit/Ml 3 Ml Vial) 0 unit SUBCUT QIDACHS [facility]; Protocol Last Admin: 05/19/24 08:33 Dose: 6 unit Losartan Potassium (Losartan Potassium 25 Mg Tablet) 25 mg PO DAILY [facility]; Protocol Magnesium Hydroxide (Milk Of Magnesia 30 Ml Oral.Susp) 30 ml PO DAILY PRN PRN Reason: Constipation Melatonin (Melatonin 3 Mg Tablet) 6 mg PO BEDTIME PRN PRN Reason: Insomnia Last Admin: 05/16/24 21:06 Dose: 6 mg Metformin HCl (Metformin Hcl 850 Mg Tablet) 850 mg PO BIDWM [facility] Last Admin: 05/19/24 08:32 Dose: 850 mg Ondansetron HCl (Ondansetron Hcl 4 Mg/2 Ml Vial) 4 mg IVPUSH Q8H PRN PRN Reason: Nausea and Vomiting Polyethylene Glycol (Polyethylene Glycol 3350 17 Gm Powd.Pack) 17 gm PO DAILY PRN PRN Reason: Constipation Sodium Chloride (0.9 % Sodium Chloride Flush 3 Ml Syringe) [facility] Last Admin: 05/19/24 08:34 Dose: 3 ml Home Medications ?Medication ?Instructions ?Recorded ?Confirmed ?Last Taken ?Type aspirin 81 mg tablet,delayed 81 mg PO DAILY 11/09/22 05/15/24 05/15/24 History release atenolol 100 mg tablet 100 mg PO DAILY 11/09/22 05/15/24 05/15/24 History insulin human U-100 NPH-regulr 30 unit subcut BID 11/09/22 05/15/24 05/15/24 History 70-30 mix 100 unit/mL subcutaneous susp (Novolin 70/30 U-100 Insulin) metformin 850 mg tablet 850 mg PO TIDWMEAL 05/15/24 05/15/24 05/15/24 History Physical Exam Vital Signs: Last Vital Signs Temp 97.9 F 05/19/24 08:00 Pulse 64 05/19/24 08:00 Resp 18 05/19/24 08:00 BP 182/76 H 05/19/24 08:00 Pulse Ox 94 05/19/24 08:00 O2 Del Method Room Air 05/19/24 08:00 O2 Flow Rate 1 05/16/24 04:00 BMI result Body Mass Index 37.0 Resp Effort & Inspection: normal respiratory effort and able to speak in complete sentences Auscultation: clear to auscultation bilaterally Cardio Jugular venous distension: no JVD Rate: regular rate Rhythm: regular rhythm Heart sounds: S1 normal heart sound present and S2 normal heart sound present GI Palpation (GI): Soft to palpation and nontender General: Yes no CVA tenderness Back/Spine/Pelvis Back: no CVA tenderness Skin Rashes: no rashes Results Lab Results 05/15/24 15:16 05/19/24 05:53 Lab results: Chemistry 05/17/24 05/17/24 05/18/24 05:46 06:54 06:26 Sodium 139 140 140 Potassium 4.1 3.8 Carbon Dioxide 27 27 BUN 37 H 36 H Creatinine 1.46 H 1.41 H Calcium 10.1 10.1 05/18/24 05/18/24 05/18/24 06:26 06:26 06:26 Sodium Cancelled Potassium 4.3 Cancelled Carbon Dioxide 28 Cancelled BUN 39 H Creatinine Calcium 05/18/24 05/18/24 05/18/24 06:26 06:26 06:26 Sodium Potassium Carbon Dioxide BUN Cancelled Creatinine 1.64 H Cancelled Calcium 10.2 Cancelled 05/19/24 05:53 Sodium 142 Potassium 4.3 Carbon Dioxide 28 BUN 34 H Creatinine 1.52 H Calcium 10.7 H Assessment and Plan (1) CKD (chronic kidney disease) stage 3, GFR 30-59 ml/min: Qualifiers: Chronic kidney disease stage 3 subtype: stage 3b (GFR 30-44) Qualified Code(s): N18.32 - Chronic kidney disease, stage 3b Status: Acute (2) Acute heart failure: Qualifiers: Heart failure type: diastolic Qualified Code(s): I50.31 - Acute diastolic (congestive) heart failure Status: Acute (3) Hypertension: Qualifiers: Hypertension type: primary hypertension Qualified Code(s): I10 - Essential (primary) hypertension Status: Inactive (4) Diabetes: Qualifiers: Diabetes mellitus complication status: with hyperglycemia Diabetes mellitus half-way insulin use: without half-way use Diabetes mellitus type: type 2 Qualified Code(s): E11.65 - Type 2 diabetes mellitus with hyperglycemia Status: Inactive Plan CKD stage 3a most likely due to diabetic nephropathy and uncontrolled hypertension Will start CKD workup, including renal US/doppler of renal arteries will get PTH, serum and urine immunofixations given her age and anemia Will check urine protein and creatinine Continue atenolol 50mg PO daily, furosemide 40mg PO daily, and losartan 25mg daily as prescribed Recommend discontinuing amlodipine 5mg daily Agree with addition of Jardiance 10mg daily for diabetes management and renal protection Patient will follow up with nephrology outpatient for workup and management in 1 month upon discharge Procedures Date of Service Date of Service: 05/19/24
[2024-05-19 11:24] VITALS: BP 162/70; PULSE 60; RESP 18; TEMP 36.8; O2SAT 97
[2024-05-19 11:24] LABS: Glucose, Whole Blood 309 mg/dL (60-115)
[2024-05-19] MEDS: Furosemide 40 MG TABLET PO (11:38)
[2024-05-19] MEDS: Insulin Glargine,Hum.rec.anlog 100 UNIT/ML 10 ML VIAL 10 UNIT SUBCUT (12:22)
[2024-05-19] MEDS: Empagliflozin 10 MG TABLET PO (13:45)
--- NOTE | 2024-05-19 14:08 | PM.PNCARD ---
Subjective Subjective Date of Service: 05/19/24 Interval history: Seen and examined patient. She does not have any complaints. Feels okay. Review of Systems Review of Systems Yes all other systems are reviewed and are negative Constitutional: Reports as per HPI and Reports no additional constitutional complaints Eyes: Reports as per HPI and Denies no additional eye complaints Denies system reviewed and no additional complaints, except as documented and Reports as per HPI Cardiovascular: Reports as per HPI, Reports no additional cardiovascular complaints, Denies acrocyanosis, Denies cool extremities, Denies chest pain, Denies leg edema, Denies lightheadedness, Denies palpitations and Denies dyspnea Respiratory: Reports as per HPI, Denies no additional respiratory complaints and Denies dyspnea Gastrointestinal: Reports as per HPI and Denies no additional gastrointestinal complaints Genitourinary: Reports as per HPI Musculoskeletal: Reports no additional musculoskeletal complaints and Reports as per HPI Skin/Breast: Reports system reviewed and no additional complaints, except as docu Reports system reviewed and no additional complaints, except as documented and Reports as per HPI Psychiatric: Reports no additional psychiatric complaints and Reports as per HPI Endocrine: Reports no additional endocrine complaints, Reports as per HPI and Denies palpitations Hematologic/Lymphatic: Reports no additional hematologic/lymphatic complaints and Reports as per HPI Allergic/Immunologic: Reports no additional allergic/immunologic complaints and Reports as per HPI Physical Exam Vital Signs: Last Vital Signs Temp 98.2 F 05/19/24 11:24 Pulse 60 05/19/24 11:24 Resp 18 05/19/24 11:24 BP 162/70 H 05/19/24 11:24 Pulse Ox 97 05/19/24 11:24 O2 Del Method Room Air 05/19/24 11:24 O2 Flow Rate 1 05/16/24 04:00 BMI result Body Mass Index 37.0 Const General: comfortable and no acute distress Orientation/consciousness: patient oriented x3 HEENT Other: Unremarkable Head: Yes normal to inspection Neck Neck: Yes normal visual inspection Chest Chest palpation & inspection: normal inspection of the chest Resp Auscultation: clear to auscultation bilaterally and crackles Cardio Palpation: normal PMI Heart sounds: S1 normal heart sound present, S2 normal heart sound present, no gallops, no murmurs and no rubs GI Palpation (GI): Soft to palpation Back/Spine/Pelvis Other: unremarkable Skin General skin exam: no rashes or lesions noted Neuro General: patient oriented x3 Extrem General: Yes normal to inspection Psych Mental Status: mental status grossly normal Objective Labs and Meds 05/15/24 15:16 05/19/24 05:53 Lab results: Laboratory Results - last 24 hr 05/18/24 05/18/24 05/19/24 15:24 20:36 05:53 Sodium 142 Potassium 4.3 Chloride 103 Carbon Dioxide 28 Anion Gap 15 BUN 34 H Creatinine 1.52 H Estim Creat Clear Calc 40.0 Estimated GFR 35 POC Glucose 154 H 161 H Random Glucose 261 H Calcium 10.7 H B-Natriuretic Peptide 530 H 05/19/24 05/19/24 07:18 11:20 Sodium Potassium Chloride Carbon Dioxide Anion Gap BUN Creatinine Estim Creat Clear Calc Estimated GFR POC Glucose 289 H 309 H Random Glucose Calcium B-Natriuretic Peptide Progress Note: A&P Assessment and plan (1) Acute heart failure: Status: Acute (2) New onset left bundle branch block (LBBB): Status: Acute (3) Hypertensive emergency: Status: Acute Plan EKG has a new left bundle-branch block. In the echocardiogram, preserved LVEF but there is diastolic dysfunction. Nuclear perfusion imaging-possible lateral wall defect but could also be artifactual. Overall, uncontrolled hypertension, uncontrolled diabetes, untreated sleep apnea, diastolic heart failure. The description of orthopnea could be related to untreated sleep apnea. Somewhat improved blood pressure. Patient herself feels okay. Ideally, optimize medical therapy as much able. Once insurance sorted out, can see as outpatient and then decide next steps. We can consider diagnostic catheterization if she continues to have clinical symptoms but the nuclear findings can all be artifactual. Discussed with Dr. Womack. Time Spent With Patient Time: Total time managing care of this patient today ____ minutes. Progress Note: Quality Stroke Does the patient have a stroke diagnosis?: No Procedures Date of Service Date of Service: 05/19/24
[2024-05-19 14:09] LABS: Parathyroid Hormone Intact 337.6 pg/mL (8.7-77.1)
--- NOTE | 2024-05-19 14:24 | MHC.CM.PN ---
Pt has been medically cleared to [place], she will go home via family transport. Financial referral was submitted per MD request because pt. needs specialist follow up care and her current ins. does not cover this. Plan is home with family care.
--- NOTE | 2024-05-19 14:46 | P.DS_ITS ---
DS: Providers Provider Date of Service: 05/19/24 Date of admission: 05/15/24 17:55 Date of discharge: 05/19/24 Primary care physician: None Physician Consults: 05/15/24 17:49 Consult to Cardiology Routine Consulting Provider: [facility] Reason for consultation: heart failure Has provider been notified: Yes 05/19/24 07:36 Consult to Nephrology Routine Consulting Provider: [facility] Reason for consultation: CKDIII, Uncontrolled HTN for establishment of care and FU DS: Diagnosis Discharge Diagnosis (1) CKD (chronic kidney disease) stage 3, GFR 30-59 ml/min: Status: Acute (2) Acute heart failure: Status: Acute (3) Hypertension: Status: Inactive (4) Diabetes: Status: Inactive (5) Diabetes mellitus with insulin therapy: Status: Acute (6) Hypertensive emergency: Status: Acute (7) New onset left bundle branch block (LBBB): Status: Acute (8) Uncontrolled type 1 diabetes mellitus with hyperglycemia: Status: Acute (9) Uncontrolled hypertension: Status: Acute DS: Summary Hospital Course Hospital Course: Admission note HPI 63-year-old female ROP speaking patient with history of CVA 15 years ago, hypertension, hyperlipidemia, uncontrolled diabetes, chronic back pain. Patient is accompanied by her son who helped with translation. She presents to the emergency room with 3 to 4 weeks of shortness of breath worse with exertion, and associated increased leg edam. She described orthopnea and 2-pillow PND. Although chest x-ray is unremarkable, BNP level is 1035. ECG show a LBBB that is new, she reports no chest pain. Her last echo from October 2022 showed diastolic dysfunction and EF > 70%. She has received Lasix for heart failure. Hospital course The patient was admitted for the following problems: 1- Acute diastolic Heart failure secondary to uncontrolled HTN. The patient was treated with IV lasix with good response over the course of hospital stay as her dyspnea, edema improved significantly and she was able to ambulate with no reported dyspnea. BNP trended down from over a 1000 to 500. Echo showing LVH and diastolic dysfunction with normal EF. She was evaluated by Cardiology team who recommended to continue Furosemide on discharge. 2- New LBBB normal troponin on admission. resumed on ASA, statin, Atenolol. Cardiology did stress testing while inpatient that was concerning for possible lateral wall mismatch. Gang Boss dr Chi suggesting elective cardiac angiogram as outpatient with a plan to follow in office. # Myocardial Perfusion Scan Nuc Med 05/17/24 10:34: Impression: - Myocardial perfusion imaging study shows possible lateral wall ischemia vs artifactual. - Gated LVEF is 44% during stress and 46% during rest. Correlate with echocardiogram. - Transient ischemic dilatation not present. 3- HTN, uncontrolled Better controlled with Atenolol and addition of Losartan 25 and amlodipine 5 mg daily. will monitor renal function as outpatient with repeat BMP and follow up with nephrology. 4- CKD3 Baseline creatinine around 1.3-1.4. increased a little to 1.5 during hospital stay. seen by Nephrology team who will continue to follow her as outpatient. Will repeat BMP with the new listed medications. 5- Uncontrolled Diabetes with hyperglycemia Hba1c 9.8 with elevated Glucose levels. started on sliding scale coverage and LAntus that was increased gradually to 30 units. Jardiance 10 mg daily was also added. To continue with new SSI and 30 units of Lantus for now and follow with new PCP as outpatient. MEtformin decreased to BIDWM for worsening kidney function. 6- Hypercalcemia with elevated PTH. will need a follow up with nephrology for further work up and management. Discharge plan Stop Mixtard insulin Start Long acting insulin: Glargine 30 units in morning To use Lispro insulin with mealtime as the sliding scale Start Jardiance 10 mg daily Decrease Metformin to two times daily for now Continue Atenolol Start Amlodipine and Losartan for blood pressure control Start Lasix for heart failure and fluid management To repeat blood test next week To follow with Dr Queen from [facility] Nephrology as outpatient You will need an elective Cardiac angiogram for an concern of abnormal [place]-scan study. To follow with Dr hCi from [facility] Cardiology as outpatient Time Attestation Discharge Coordination Time (in mins): 46 Quality: Safe Use of Opioids Does Pt have an Active Cancer Diagnosis on the Problem List?: No Quality: Stroke Does the patient have a stroke diagnosis?: No Physical Exam Vital Signs: Vital Signs: Last Vital Signs Temp 98.2 F 05/19/24 11:24 Pulse 60 05/19/24 11:24 Resp 18 05/19/24 11:24 BP 162/70 H 05/19/24 11:24 Pulse Ox 97 05/19/24 11:24 O2 Del Method Room Air 05/19/24 11:24 O2 Flow Rate 1 05/16/24 04:00 BMI result Body Mass Index 37.0 Const: Other: General: AO X 3, no acute distress Resp: Bilateral basal rales CVS: S1,S2,RRR, trace pedal edam, no elevation in JVD GI: +BS, NT, no distention Skin: No rash Neuro: motor grossly intact Psych: appropriate affect DS: Data Data Completed and Pending Labs on day of discharge: Laboratory Results - last 24 hr 05/18/24 05/18/24 05/19/24 15:24 20:36 05:53 Sodium 142 Potassium 4.3 Chloride 103 Carbon Dioxide 28 Anion Gap 15 BUN 34 H Creatinine 1.52 H Estim Creat Clear Calc 40.0 Estimated GFR 35 POC Glucose 154 H 161 H Random Glucose 261 H Calcium 10.7 H B-Natriuretic Peptide 530 H PTH Intact 05/19/24 05/19/24 05/19/24 07:18 11:20 13:28 Sodium Potassium Chloride Carbon Dioxide Anion Gap BUN Creatinine Estim Creat Clear Calc Estimated GFR POC Glucose 289 H 309 H Random Glucose Calcium B-Natriuretic Peptide PTH Intact 337.6 H Imaging Chest x-ray: Radiologist's impression: ITS Impressions Chest X-Ray 05/15/24 14:45 IMPRESSION: Unremarkable examination. Electronically signed by: Maury Winston MD 05/15/2024 04:23 PM EDT RP Myocardial Perfusion Scan Nuc Med 05/17/24 10:34 Impression: 1. Myocardial perfusion imaging study shows possible lateral wall ischemia vs artifactual. 2. Gated LVEF is 44% during stress and 46% during rest. Correlate with echocardiogram. 3. Transient ischemic dilatation not present. EKG component of the test reported separately. Electronically signed by: Elías Chi MD 05/19/2024 12:28 PM EDT RP Discharge Plan Discharge Anticipated Discharge Date/Time: 05/19/24 14:23 Patient Disposition: Home, Self-Care Discharge Diagnosis: Uncontrolled hypertension Uncontrolled diabetes HEart failure with exacerbation Referrals: Physician,None [Primary Care Provider] - 1 Week Discharge Medications: New furosemide 40 mg Tablet 40 mg PO DAILY Qty: 90 0RF Protocol: Hold for SBP< HOLD for SBP < : 90 losartan 25 mg Tablet 25 mg PO DAILY Qty: 90 0RF Protocol: Hold for SBP< HOLD for SBP < : 90 Jardiance 10 mg Tablet 10 mg PO DAILY Qty: 90 0RF amlodipine 5 mg tablet 5 mg PO DAILY Qty: 90 0RF insulin lispro [Humalog KwikPen Insulin] 100 unit/mL insulin pen See Protocol subcut USEASDIRECTD Qty: 15 0RF Protocol: Insulin Correction Scale Less than or equal to 110 ---- Give (units): 0 111 to 150 Give (units): 0 151 to 200 Give (units): 2 201 to 250 Give (units): 4 251 to 300 Give (units): 6 301 to 350 Give (units): 8 Greater than 350 Give (units): 10 Call MD if Blood Glucose > : 350 Rx Instructions: <150 hold insulin 151-200 take 3 units 201-250 take 5 units 251-300 take 8 units 301-350 take 10 units >351 take 15 units and contact PCP insulin glargine 100 unit/mL (3 mL) insulin pen 30 unit subcut QAM Qty: 15 0RF Continued atenolol 100 mg Tablet 100 mg PO DAILY aspirin 81 mg Tablet,Delayed Release (Dr/Ec) 81 mg PO DAILY atorvastatin 40 mg Tablet 40 mg PO BEDTIME Qty: 90 0RF Changed metformin 850 mg Tablet 850 mg PO BIDWM Qty: 60 0RF Discontinued Novolin 70/30 U-100 Insulin 100 unit/mL (70-30) Suspension 30 unit SUBCUT BID Discharge Orders: Discharge Order (Routine); Ordered 05/19/24 Ordered By: Telly Womack Diet: Diabetic diet Activity on Discharge: As tolerated Stand Alone Forms: Patient Portal Discharge page Print Language: Belarusian Other Ambulatory Orders: Basic Metabolic Panel (Routine) Timeframe: 1 Day Facility: [facility] - Location: Laboratory Ordered By: Telly Womack Care Plan Goals: For Diabetes: Stop Mixtard insulin Start Long acting insulin: Glargine 30 units in morning To use Lispro insulin with mealtime as the sliding scale Start Jardiance 10 mg daily Decrease Metformin to two times daily for now For Hypertension: Continue Atenolol Start Amlodipine and Losartan for blood pressure control Start Lasix for heart failure and fluid management For Chronic kidney disease: To repeat blood test next week To follow with Dr Queen from [facility] Nephrology as outpatient For Heart failure You will need an elective Cardiac angiogram To follow with Dr Chi from [facility] Cardiology as outpatient Health Concerns: Uncontrolled hypertension Uncontrolled diabetes HEart failure with exacerbation Plan of Treatment: Insulin, blood pressure medications Follow up with cardiolgoy and nephrology Assessment: as above Patient Instructions: Insulin Glargine (By injection), Type 1 Diabetes in Adults: New Diagnosis (DC), How to Check your Blood Sugar (DC)
[2024-05-19 14:53] LABS: Creatinine Urine 27.43 mg/dL; Total Protein Urine Random 9 mg/dL (<12)
[2024-05-19 16:00] VITALS: BP 142/72; PULSE 60; RESP 18; TEMP 36.8; O2SAT 98
[2024-05-19 16:06] LABS: Parathyroid Hormone Intact 378.5 pg/mL (8.7-77.1)
[2024-05-19 16:45] LABS: Glucose, Whole Blood 186 mg/dL (60-115)
[2024-05-23 22:23] LABS: IgA 363 mg/dL (70-320); IgG 949 mg/dL (600-1540); IgM 69 mg/dL (50-300)
[2024-05-25 14:23] LABS: Vitamin D 25-OH, D2 <4 ng/mL; Vitamin D 25-OH, D3 25 ng/mL; Vitamin D 25-OH, Total 25 ng/mL (30-100)
== END 2024-05-19 16:57 | disposition home or self-care (01) | DRG 194 ==
LOC: HO.ED 16:32 → HO.EDOVER 18:02 → HO.IMC 19:14
PROVIDERS: Internal Medicine; Nurse Practitioner Family; Physician Assistant; Admitting Provider Internal Medicine; Emergency Provider Internal Medicine; Visit Provider Student in an Organized Health Care Education/Training Program
DX: I13.0 Hypertensive heart and chronic kidney disease with heart failure and stage 1 through stage 4 chronic kidney disease, or unspecified chronic kidney disease (principal); E11.22 Type 2 diabetes mellitus with diabetic chronic kidney disease; I50.31 Acute diastolic (congestive) heart failure; E78.5 Hyperlipidemia, unspecified; E11.65 Type 2 diabetes mellitus with hyperglycemia; E66.09 Other obesity due to excess calories; I44.7 Left bundle-branch block, unspecified; N18.31 Chronic kidney disease, stage 3a; Z20.822 Contact with and (suspected) exposure to COVID-19; Z68.37 Body mass index [BMI] 37.0-37.9, adult; Z86.73 Personal history of transient ischemic attack (TIA), and cerebral infarction without residual deficits; Z79.82 Long term (current) use of aspirin; Z79.84 Long term (current) use of oral hypoglycemic drugs; Z79.899 Other long term (current) drug therapy
CPT/HCPCS: 0241U; 36415; 71046; 78452; 80048; 80076; 82306; 82570; 82784; 82947; 83036; 83735; 83880; 83970; 84156; 84484; 85025; 85610; 85730; 86334; 86335; 93005; 93017; 93306; 99285; A9500; J0280; J0360; J1650; J1940; J2785; Q9957

== ENCOUNTER → 2024-05-15 14:16 | Outpatient (BNV) | payer MEDICAID, SELFPAY | PROVIDERS: Admitting Provider Internal Medicine; Emergency Provider Internal Medicine; Visit Provider Internal Medicine | DX: R06.02 Shortness of breath (principal); R00.1 Bradycardia, unspecified; I44.7 Left bundle-branch block, unspecified | CPT/HCPCS: 93010 ==

== ENCOUNTER 2024-05-15 17:55 | Outpatient (BNV) | payer MEDICAID, SELFPAY | END 2024-05-16 07:00 | PROVIDERS: Admitting Provider Internal Medicine; Emergency Provider Internal Medicine; Visit Provider Internal Medicine | DX: I42.2 Other hypertrophic cardiomyopathy (principal); I35.8 Other nonrheumatic aortic valve disorders; I34.81 Nonrheumatic mitral (valve) annulus calcification; I51.89 Other ill-defined heart diseases | CPT/HCPCS: 93306 ==

== ENCOUNTER 2024-05-15 17:55 | Outpatient (BNV) | payer MEDICAID, SELFPAY | END 2024-05-17 | PROVIDERS: Admitting Provider Internal Medicine; Emergency Provider Internal Medicine; Visit Provider Nurse Practitioner Family | DX: I50.9 Heart failure, unspecified (principal); R06.02 Shortness of breath | CPT/HCPCS: 78452; 93016; 93018 ==

== ENCOUNTER → 2024-05-15 17:55 | Outpatient (BNV) | payer MEDICAID, SELFPAY | PROVIDERS: Admitting Provider Internal Medicine; Emergency Provider Internal Medicine; Visit Provider Internal Medicine | DX: I50.31 Acute diastolic (congestive) heart failure (principal); I44.7 Left bundle-branch block, unspecified; I16.1 Hypertensive emergency | CPT/HCPCS: 99223; 99233 ==

== ENCOUNTER → 2024-05-15 17:55 | Outpatient (BNV) | payer MEDICAID, SELFPAY | PROVIDERS: Admitting Provider Internal Medicine; Emergency Provider Internal Medicine; Visit Provider Internal Medicine | DX: I44.7 Left bundle-branch block, unspecified (principal); I16.1 Hypertensive emergency; I50.31 Acute diastolic (congestive) heart failure; E11.9 Type 2 diabetes mellitus without complications; Z79.4 Long term (current) use of insulin | CPT/HCPCS: 99223; 99232; 99239 ==

== ENCOUNTER → 2024-05-15 17:55 | Outpatient (BNV) | payer SELFPAY | PROVIDERS: Admitting Provider Internal Medicine; Emergency Provider Internal Medicine; Visit Provider Nurse Practitioner Family | DX: I13.0 Hypertensive heart and chronic kidney disease with heart failure and stage 1 through stage 4 chronic kidney disease, or unspecified chronic kidney disease (principal); E11.22 Type 2 diabetes mellitus with diabetic chronic kidney disease; N18.32 Chronic kidney disease, stage 3b; I50.31 Acute diastolic (congestive) heart failure | CPT/HCPCS: 99222 ==

== ENCOUNTER 2024-05-18 06:19 | Outpatient (REF) | payer MEDICAID, OTHER, SELFPAY | END 2024-05-18 06:20 | disposition home or self-care (01) | LOC: CF 06:19 | PROVIDERS: Visit Provider Internal Medicine | DX: Z13.89 Encounter for screening for other disorder (principal) ==

== ENCOUNTER 2024-05-25 06:26 | Outpatient (REF) | payer MEDICAID, OTHER, SELFPAY | END 2024-05-25 06:27 | disposition home or self-care (01) | LOC: CF 06:26 | PROVIDERS: Visit Provider Internal Medicine | DX: M54.16 Radiculopathy, lumbar region (principal) | CPT/HCPCS: 62323; J1100; J2003; J3300; J3301; Q9967 ==

== ENCOUNTER 2024-05-25 13:09 | Outpatient (AMB) | payer MEDICAID, SELFPAY ==
--- NOTE | 2024-05-25 13:15 | A.OFFVIS_ITS ---
Vital Signs 05/25/24 13:16 05/25/24 13:43 BP 177/73 H 147/73 H Blood Pressure Location Lt brachial Lt brachial Position Sitting Sitting Pulse 60 60 Pulse Source Pulse Oximeter Pulse Oximeter Pulse Oximetry (%) 98 95 Oxygen Delivery Method Room Air Room Air Intake Visit Reasons: Left L5-S1 parasagittal interlaminar JAI Allergies No Known Allergies Allergy (Verified 05/15/24 14:21) HPI HPI Left L5-S1 parasagittal interlaminar JAI: Details: Patient presents for scheduled procedure. Denies any recent cough, cold, infection, fever or other significant changes in medical history since last office visit. [facility] Medical History (Updated 05/23/24 @ 00:03 by Ninfa Sultana) CKD (chronic kidney disease) stage 3, GFR 30-59 ml/min New onset left bundle branch block (LBBB) Diabetes mellitus with insulin therapy (Unknown) HLD (hyperlipidemia) Hypertension Family History (Updated 05/16/24 @ 10:07 by Elías Chi MD) Mother Diabetes Hypertension Father Hypertension Brother Diabetes Social History Household Members: Family Housing: House Do you presently have visiting nurse or other home services: No Alcohol intake: never Patient Tobacco Use Status: Never used Tobacco e-Cigarette/Vaping Use: Never Used Second Hand Smoke Exposure: No Advance Directives Date on File: 11/16/22 service: No Physical Exam Vital Signs: Last Vital Signs Pulse 60 05/25/24 13:43 BP 147/73 H 05/25/24 13:43 Pulse Ox 95 05/25/24 13:43 Oxygen Delivery Method Room Air 05/25/24 13:43 Office Procedures AMB Joint Injection/Aspiration Joint Injection/Aspiration Details: Interlaminar epidural steroid injection, L5-S1, left parasaggital After obtaining written consent, pre-procedure blood pressure and heart rate were stable and recorded in the nursing record. The patient was placed in the prone position. The lumbar area was widely prepped with chloraprep and draped in sterile fashion. Fluoroscopic guidance was used to identify the desired interlaminar space and for needle placement. Subcutaneous 0.5% lidocaine was used to anesthetize the skin overlying the target. A 20-gauge Shanks needle was advanced to the epidural space using loss of resistance to co ntrast technique under fluoroscopic AP and contralateral oblique views. There was no evidence of heme or CSF and no paresthesias were elicited with needle placement. Confirmation of epidural needle placement was performed with 1cc of omnipaque 180. Next 6 ml 0.5% lidocaine mixed with 16 mg triamcinilone and 2 mg dexamethasone was administered epidurally with no pain elicited on injection. The needle tract tubing was then cleared with 1 ml of 0.5% lidocaine. The needle was removed, skin cleansed and a sterile bandage was applied. The patient tolerated the procedure well and no complications were encountered. Following the procedure the patient's vital signs were stable. The patient was discharged home in good condition with post-procedural instructions. Time Out: Immediately prior to the procedure, the following was verbally confirmed that there is a signed consent form and that the correct patient, planned procedure, site and side are consistent with documentation and that necessary equipment and/or blood products are available prior to the start of the case. Complications: none EBL: <2 cc Coding 17758 - Caudal/Lumbar Epidural/Interlaminar with fluoroscopy Procedure code (CPT) selection complete Office Meds Kenalog 40 mg/mL suspension for injection Performing Provider: Jony Matias MD Performing Location: [facility] Administered by: Jony Matias MD on 05/25/24 13:57 Dose Route Admin Location Dispensed Lot Number Expiration Date [facility] [place] 2[place] Pododermatologist 40 mg Infiltration 1 mL lidocaine (PF) 10 mg/mL (1 %) injection solution Performing Provider: Jony Matias MD Performing Location: [facility] Administered by: Jony Matias MD on 05/25/24 13:57 Dose Route Admin Location Dispensed Lot Number Expiration Date [facility] [place] Pododermatologist 10 mg Infiltration 10 mL Assessment & Plan Assessment & Plan (1) Lumbar radiculopathy: Code(s): M54.16 - Radiculopathy, lumbar region Category: Medical Plan Patient is status post L5-S1 interlaminar JAI. Patient tolerated procedure well and was discharged home in stable condition with discharge instructions. Small doses of triamcinolone and dexamethasone were used to minimize both water retention and hyperglycemic side effects of these medications, respectively, in light of recent acute on chronic congestive heart failure episode and poorly controlled chronic DM. Patient and her son were counseled to watch for changes in blood sugar level and blood pressure. If today's injection is not helpful in relieving her symptoms, we can consider a short course of narcotic medications to help assist with her upcoming travel. Orders: Orders [place] guidance in treatment room Today M54.16 - Radiculopathy, lumbar region AMB Joint Injection/Aspiration Today M54.16 - Radiculopathy, lumbar region Medications: New Kenalog (triamcinolone acetonide) 40 mg Infiltration ONCE 1 mL 0RF NS M54.16 - Radiculopathy, lumbar region lidocaine (PF) 10 mg Infiltration ONCE 2 mL 0RF M54.16 - Radiculopathy, lumbar region Coding Level of Care Code Procedure Only Diagnoses Lumbar radiculopathy M54.16 CPT Codes Coding - Joint 11: 85935 - Caudal/Lumbar Epidural/Interlaminar with fluoroscopy ([id number])
[2024-05-25 13:16] VITALS: BP 177/73; PULSE 60; O2SAT 98
[2024-05-25 13:43] VITALS: BP 147/73; PULSE 60; O2SAT 95
== END 2024-05-25 13:41 | disposition home or self-care (01) ==
LOC: HO.PMCPRC 13:09
PROVIDERS: Visit Provider Internal Medicine
DX: M54.16 Radiculopathy, lumbar region (principal)
CPT/HCPCS: 62323

== ENCOUNTER 2024-06-02 11:26 | Outpatient (AMB) | payer MEDICAID, SELFPAY ==
--- NOTE | 2024-06-02 11:29 | HO.NEPHOV_ITS ---
Vital Signs 06/02/24 11:31 Height 5 ft 2 in Weight 203 lb 2 oz BMI 37.1 BP 154/80 H Blood Pressure Location Lt brachial Position Sitting Pulse 82 Pulse Source Pulse Oximeter Pulse Oximetry (%) 95 Oxygen Delivery Method Room Air Intake Visit Reasons: [facility] [place] Follow/Up-Conf Import Export Clerk Required: Yes Import Export Clerk Language: Polish Import Export Clerk Services: Import Export Clerk Offered & Declined ([facility] [place] pebble mill operator services refused.) Accompanied by: Son Allergies No Known Allergies Allergy (Verified 06/02/24 11:30) HPI Comments Details: 63 y/o female from [place] with CKD3, uncontrolled HTN, HLD, uncontrolled DMII, hx of stroke who came [place] the [place] 6 months ago to be closer to her family. she has three children here living locally and lives with them in [place]. she recently presented to the hospital on 05/15 with 3-4 weeks of dyspnea, orthopnea, PND. Her echo showed LVH and diastolic dysfunction with normal EF; treated with diuretics and improved. Her last serum creatinine was 1.52. She is on insulin and Jardiance. She has no new complaints and is here for follow up of CKD3 and HTN. She maintains good hydration and avoids NSAID's. [facility] Medical History (Updated 06/02/24 @ 11:38 by Vlad Queen MD) CKD (chronic kidney disease) stage 3, GFR 30-59 ml/min Hypertension New onset left bundle branch block (LBBB) Diabetes mellitus with insulin therapy (Unknown) HLD (hyperlipidemia) Family History Mother Diabetes Hypertension Father Hypertension Brother Diabetes Social History Household Members: Family Housing: House Do you presently have visiting nurse or other home services: No Alcohol intake: never Patient Tobacco Use Status: Never used Tobacco e-Cigarette/Vaping Use: Never Used Second Hand Smoke Exposure: No Advance Directives Date on File: 11/16/22 service: No Review of Systems Const All systems reviewed & are unremarkable except as noted in HPI and below Physical Exam Const General: comfortable and no acute distress Orientation/consciousness: patient oriented x3 HEENT Head: Yes normocephalic Mouth: Normal oral and palatal mucosa present Eyes EOM: EOMs intact bilaterally Neck Neck: Yes supple Resp Auscultation: clear to auscultation bilaterally Cardio Jugular venous distension: no JVD Rate: regular rate GI Palpation (GI): Soft to palpation Auscultation: normal bowel sounds General: Yes no CVA tenderness Back/Spine/Pelvis Back: no CVA tenderness Skin General skin exam: no rashes or lesions noted Neuro General: patient oriented x3 and moves all extremities Extrem General: Yes no pedal edema Results Reviewed Nephrology Results: Hgb 10.5 g/dl (12.0-16.0) L 05/15/24 WBC 6.3 X10*3/uL (4.8-10.8) 05/15/24 Plt Count 209 X10*3/uL (160-400) 05/15/24 Sodium 142 mmol/L (135-145) 05/19/24 Potassium 4.3 mmol/L (3.3-5.1) 05/19/24 Chloride 103 mmol/L (96-108) 05/19/24 Carbon Dioxide 28 mmol/L (22-29) 05/19/24 BUN 34 mg/dL (9-16) H 05/19/24 Creatinine 1.52 mg/dL (0.5-1.4) H 05/19/24 Calcium 10.7 mg/dL (8.4-10.2) H 05/19/24 PTH Intact 378.5 pg/mL (8.7-77.1) H 05/19/24 Urine Creatinine 27.43 mg/dL 05/19/24 Assessment & Plan Assessment & Plan (1) Hypertension: Code(s): I10 - Essential (primary) hypertension Category: Medical Qualifiers: Hypertension type: primary hypertension Qualified Code(s): I10 - Essential (primary) hypertension (2) CKD (chronic kidney disease) stage 3, GFR 30-59 ml/min: Code(s): N18.30 - Chronic kidney disease, stage 3 unspecified Category: Medical Qualifiers: Chronic kidney disease stage 3 subtype: stage 3b (GFR 30-44) Qualified Code(s): N18.32 - Chronic kidney disease, stage 3b (3) Secondary hyperparathyroidism (of renal origin): Code(s): N25.81 - Secondary hyperparathyroidism of renal origin Category: Medical (4) Renal calculus: Code(s): N20.0 - Calculus of kidney Category: Medical Plan CKD stage 3a most likely due to hypertension and vascular disease Needs renal US/doppler of renal arteries; NO significant proteinuria( going to [place] in couple of days) Continue atenolol 50mg PO daily, furosemide 40mg PO daily, and losartan 25mg daily as prescribed May be able to D/C amlodipine 5mg daily after increasing ARB, with time C/W Jardiance 10mg daily for diabetes management and renal protection. Dose could be increased later Labs/ FU 6-8 M Orders: Orders Creatinine 6 Months I10 - Essential (primary) hypertension, N18.32 - Chronic kidney disease, stage 3b, N20.0 - Calculus of kidney, N25.81 - Secondary hyperparathyroidism of renal origin Phosphorus 6 Months I10 - Essential (primary) hypertension, N18.32 - Chronic kidney disease, stage 3b, N20.0 - Calculus of kidney, N25.81 - Secondary hyperparathyroidism of renal origin Parathyroid Hormone Intact 6 Months I10 - Essential (primary) hypertension, N18.32 - Chronic kidney disease, stage 3b, N20.0 - Calculus of kidney, N25.81 - Secondary hyperparathyroidism of renal origin Hemoglobin A1c 6 Months I10 - Essential (primary) hypertension, N18.32 - Chronic kidney disease, stage 3b, N20.0 - Calculus of kidney, N25.81 - Secondary hyperparathyroidism of renal origin Blood Urea Nitrogen 6 Months I10 - Essential (primary) hypertension, N18.32 - Chronic kidney disease, stage 3b, N20.0 - Calculus of kidney, N25.81 - Secondary hyperparathyroidism of renal origin Electrolytes 6 Months I10 - Essential (primary) hypertension, N18.32 - Chronic kidney disease, stage 3b, N20.0 - Calculus of kidney, N25.81 - Secondary hyperparathyroidism of renal origin Calcium 6 Months I10 - Essential (primary) hypertension, N18.32 - Chronic kidney disease, stage 3b, N20.0 - Calculus of kidney, N25.81 - Secondary hyperparathyroidism of renal origin Vitamin D 25-OH Total 6 Months I10 - Essential (primary) hypertension, N18.32 - Chronic kidney disease, stage 3b, N20.0 - Calculus of kidney, N25.81 - Secondary hyperparathyroidism of renal origin Coding Level of Care Code Est Pt Level 4 (51179) Diagnoses Primary hypertension I10 Hypertension type: primary hypertension Stage 3b chronic kidney disease N18.32 Chronic kidney disease stage 3 subtype: stage 3b (GFR 30-44) Secondary hyperparathyroidism (of renal origin) N25.81 Renal calculus N20.0
[2024-06-02 11:31] VITALS: BP 154/80; PULSE 82; O2SAT 95; BMI 37.1
== END 2024-06-02 12:13 | disposition home or self-care (01) ==
PROVIDERS: Visit Provider Internal Medicine Nephrology
DX: I12.9 Hypertensive chronic kidney disease with stage 1 through stage 4 chronic kidney disease, or unspecified chronic kidney disease (principal); N18.32 Chronic kidney disease, stage 3b; N25.81 Secondary hyperparathyroidism of renal origin; N20.0 Calculus of kidney
CPT/HCPCS: 99214

== ENCOUNTER → 2024-06-02 11:26 | Outpatient (BNVA) | payer MEDICAID, OTHER, SELFPAY | PROVIDERS: Visit Provider Internal Medicine Nephrology | DX: I12.9 Hypertensive chronic kidney disease with stage 1 through stage 4 chronic kidney disease, or unspecified chronic kidney disease (principal); E78.5 Hyperlipidemia, unspecified; N18.32 Chronic kidney disease, stage 3b; N25.81 Secondary hyperparathyroidism of renal origin; N20.0 Calculus of kidney; Z86.73 Personal history of transient ischemic attack (TIA), and cerebral infarction without residual deficits | CPT/HCPCS: 99212 ==

== ENCOUNTER 2025-01-09 12:24 | Outpatient (REF) | payer OTHER, SELFPAY ==
[2025-01-09 13:42] LABS: Estimated Average Glucose 278 mg/dL; Hemoglobin A1c % 11.3 % (<6.0)
--- OUTSIDE RECORDS SUMMARY | 2025-01-09 13:56 | XMS_ITS | Clinical Summary ---
Author Organization [employer] Address [address] [place] [address] [address] [place] [address] Care Team Providers Care Research Physiologist Name Role Phone Unavailable Primary Care Provider Unavailabl e Social History Tobacco Use Types Packs/Day Years Used Date Smoking Tobacco: Never Assessed Comments Unknown Sex and Gender Information Value Date Recorded Sex Assigned at Female 05/22/2024 1:59 PM EST Legal Sex Female 1:39 PM EST Gender Identity Female 05/22/2024 1:59 PM EST Sexual Orientation Don't know 05/22/2024 2: 36 PM EST Plan of Treatment Health Maintenance Due Date Last Done Comments CT Colonography 1962 Colonoscopy 1962 Colorectal Cancer Screening 1962 Depression Screening 1962 FIT DNA/Cologuard 1962 FIT 1962 FOBT 1962 HIV Screening 1962 SDOH Screening 1962 Sigmoidoscopy 1962 Disability Screening 1962 Alcohol/Substance Use Screening 1974 Tobacco Screening 1974 Hepatitis C Screening 1980 DTaP/Tdap/Td Vaccines (1 - Tdap) 1981 Pap Smear 12/06/1983 Cervical Cancer Screening 1992 HPV/Cotest 1992 Mammogram 2002 Pneumococcal Vaccine: 50+ Ye ars (1 of 1 - PCV) 2012 Zoster Vaccines (1 of 2) 2012 COVID-19 Vaccine ( - 2023-2 5 season) 2024 Influenza Vaccine (Season Ended) 2025 RSV Patients and Pa tients Aged 60 years or older (1 - 1-dose 75+ series) 2037 HIB Vaccines Aged Out No longer eligi ble based on patient's age to complete this topic HPV Vaccines Aged Out No longer eligi ble based on patient's age to complete this topic Hepatitis A Vaccines Aged Out No long er eligible based on patient's age to complete this topic Hepatitis B Vaccines Aged Out No long er eligible based on patient's age to complete this topic IPV Vaccines Aged Out No longer eligi ble based on patient's age to complete this topic Meningococcal B Vaccine Aged Out No l onger eligible based on patient's age to complete this topic Meningococcal Vaccine Aged Out No savanah jignesh eligible based on patient's age to complete this topic RSV under 20 months Aged Out No longe r eligible based on patient's age to complete this topic Rotavirus Vaccines Aged Out No longer eligible based on patient's age to complete this topic Insurance [employer]
[2025-01-09 14:11] LABS: Anion Gap 15 (12-20); Blood Urea Nitrogen 38 mg/dL (9-16); Calcium 10.5 mg/dL (8.4-10.2); Carbon Dioxide 27 mmol/L (22-29); Chloride 99 mmol/L (96-108); Estimated Glomerular Filt Rate 42; Parathyroid Hormone Intact 462.8 pg/mL (8.7-77.1); Phosphorus 3.2 mg/dL (2.7-4.5); Potassium 4.7 mmol/L (3.3-5.1); Sodium 136 mmol/L (135-145)
[2025-01-09 14:30] LABS: Vitamin D 25-OH Total 17.6 ng/mL (>30)
== END 2025-01-09 12:25 | disposition home or self-care (01) ==
LOC: HO.LAB 12:24
PROVIDERS: Visit Provider Internal Medicine Nephrology
DX: N20.0 Calculus of kidney (principal); N25.81 Secondary hyperparathyroidism of renal origin; N18.32 Chronic kidney disease, stage 3b; I10 Essential (primary) hypertension
CPT/HCPCS: 36415; 80051; 82306; 82310; 82565; 83036; 83970; 84100; 84520

== ENCOUNTER 2025-01-12 13:38 | Outpatient (AMB) | payer OTHER, SELFPAY ==
--- NOTE | 2025-01-12 13:45 | HO.NEPHOV ---
Vital Signs 01/12/25 13:47 Height 5 ft 2 in Weight 203 lb 2 oz BMI 37.1 BP 140/89 H Blood Pressure Location Rt brachial Position Sitting Pulse 56 Pulse Source Pulse Oximeter Pulse Oximetry (%) 95 Oxygen Delivery Method Room Air Intake Visit Reasons: CKD-Conf Intake Note: Patient here for a follow-up. Public Speaking Teacher Required: No Accompanied by: Son Allergies No Known Allergies Allergy (Verified 01/12/25 13:51) Do you need a note to return to daycare/school/sports/work: No HPI Comments Details: 63 y/o female from [place] with CKD3, uncontrolled HTN, HLD, uncontrolled DMII, hx of stroke who [place] to her [place]. she has three children here living locally and lives with them in [place]. she recently presented to the hospital on 05/15 with 3-4 weeks of dyspnea, orthopnea, PND. Her echo showed LVH and diastolic dysfunction with normal EF; treated with diuretics and improved. Her last serum creatinine was 1.30. She is on insulin but stopped taking Jardiance. She has no new complaints and is here for follow up of CKD3 and HTN. She maintains good hydration and avoids NSAID's. [facility] Medical History CKD (chronic kidney disease) stage 3, GFR 30-59 ml/min Hypertension New onset left bundle branch block (LBBB) Diabetes mellitus with insulin therapy (Unknown) HLD (hyperlipidemia) Family History Mother Diabetes Hypertension Father Hypertension Brother Diabetes Social History Household Members: Family Housing: House Do you presently have visiting nurse or other home services: No Alcohol intake: never Patient Tobacco Use Status: Never used Tobacco e-Cigarette/Vaping Use: Never Used Second Hand Smoke Exposure: No Advance Directives Date on File: 11/16/22 service: No Review of Systems Const All systems reviewed & are unremarkable except as noted in HPI and below Physical Exam Vital Signs: Last Vital Signs Pulse 56 01/12/25 13:47 BP 140/89 H 01/12/25 13:47 Pulse Ox 95 01/12/25 13:47 Oxygen Delivery Method Room Air 01/12/25 13:47 BMI result Body Mass Index 37.1 Const General: comfortable and no acute distress Orientation/consciousness: patient oriented x3 HEENT Head: Yes normocephalic Mouth: Normal oral and palatal mucosa present Eyes EOM: EOMs intact bilaterally Neck Neck: Yes supple Resp Auscultation: clear to auscultation bilaterally Cardio Jugular venous distension: no JVD Rate: regular rate GI Palpation (GI): Soft to palpation Auscultation: normal bowel sounds General: Yes no CVA tenderness Back/Spine/Pelvis Back: no CVA tenderness Skin General skin exam: no rashes or lesions noted Neuro General: patient oriented x3 and moves all extremities Extrem General: Yes no pedal edema Results Reviewed Nephrology Results: Hgb, (12.0-16.0) 10.5 g/dl L 05/15/24 WBC, (4.8-10.8) 6.3 X10*3/uL 05/15/24 Plt Count, (160-400) 209 X10*3/uL 05/15/24 Sodium, (135-145) 136 mmol/L 01/09/25 Potassium, (3.3-5.1) 4.7 mmol/L 01/09/25 Chloride, (96-108) 99 mmol/L 01/09/25 Carbon Dioxide, (22-29) 27 mmol/L 01/09/25 BUN, (9-16) 38 mg/dL H 01/09/25 Creatinine, (0.5-1.4) 1.30 mg/dL 01/09/25 Calcium, (8.4-10.2) 10.5 mg/dL H 01/09/25 Phosphorus, (2.7-4.5) 3.2 mg/dL 01/09/25 PTH Intact, (8.7-77.1) 462.8 pg/mL H 01/09/25 Urine Creatinine 27.43 mg/dL 05/19/24 Assessment & Plan Assessment & Plan (1) Hypertension: Code(s): I10 - Essential (primary) hypertension Category: Medical Qualifiers: Hypertension type: primary hypertension Qualified Code(s): I10 - Essential (primary) hypertension (2) CKD (chronic kidney disease) stage 3, GFR 30-59 ml/min: Code(s): N18.30 - Chronic kidney disease, stage 3 unspecified Category: Medical Qualifiers: Chronic kidney disease stage 3 subtype: stage 3b (GFR 30-44) Qualified Code(s): N18.32 - Chronic kidney disease, stage 3b Plan CKD stage 3a most likely due to hypertension and vascular disease Needs renal US/doppler of renal arteries; NO significant proteinuria( going to [place] in couple of days) Continue medications as prescribed ;May be able to D/C amlodipine after starting ARB next visit C/W Jardiance 10mg daily for diabetes management and renal protection. Dose could be increased later Labs/ FU 6 M Orders: Orders Electrolytes 6 Months I10 - Essential (primary) hypertension, N18.32 - Chronic kidney disease, stage 3b Hemoglobin A1c 6 Months I10 - Essential (primary) hypertension, N18.32 - Chronic kidney disease, stage 3b Creatinine 6 Months I10 - Essential (primary) hypertension, N18.32 - Chronic kidney disease, stage 3b Blood Urea Nitrogen 6 Months I10 - Essential (primary) hypertension, N18.32 - Chronic kidney disease, stage 3b Protein Creatinine Ratio, Ur 6 Months I10 - Essential (primary) hypertension, N18.32 - Chronic kidney disease, stage 3b Immunofixation Pnl, Serum 6 Months I10 - Essential (primary) hypertension, N18.32 - Chronic kidney disease, stage 3b Coding Level of Care Code Est Pt Level 4 (52114) Diagnoses Primary hypertension I10 Hypertension type: primary hypertension Stage 3b chronic kidney disease N18.32 Chronic kidney disease stage 3 subtype: stage 3b (GFR 30-44)
[2025-01-12 13:47] VITALS: BP 140/89; PULSE 56; O2SAT 95; BMI 37.1
--- OUTSIDE RECORDS SUMMARY | 2025-01-12 14:06 | XMS_ITS | Clinical Summary ---
Author Organization [employer] Address [address] [place] [address] [address] [place] [address] Care Team Providers Care Concrete Buster Operator Name Role Phone Unavailable Primary Care Provider [...] patient's age to complete this topic Insurance [employer]
== END 2025-01-12 15:06 | disposition home or self-care (01) ==
LOC: HO.HKA 13:38
PROVIDERS: Visit Provider Internal Medicine Nephrology
DX: I10 Essential (primary) hypertension (principal); N18.32 Chronic kidney disease, stage 3b
CPT/HCPCS: 99214

== ENCOUNTER → 2025-01-12 13:38 | Outpatient (BNVA) | payer OTHER, SELFPAY | PROVIDERS: Visit Provider Internal Medicine Nephrology | DX: I10 Essential (primary) hypertension (principal); N18.32 Chronic kidney disease, stage 3b; Z79.84 Long term (current) use of oral hypoglycemic drugs | CPT/HCPCS: 99212 ==